=== PATIENT | female | born 1955 | race Caucasian/White ===

== ENCOUNTER → 2017-08-20 08:14 | Outpatient (CLI) | payer BC, SELFPAY ==
[2017-08-20 08:35] LABS: INR 1.65 (0.9-1.1); Prothrombin Time 17.9 seconds (9.4-11.8)
== END ==
PROVIDERS: PCP Family Medicine; Visit Provider Family Medicine
DX: Z79.01 Long term (current) use of anticoagulants (principal); Z51.81 Encounter for therapeutic drug level monitoring
CPT/HCPCS: 36415; 85610

== ENCOUNTER → 2017-09-18 08:28 | Outpatient (CLI) | payer BC, SELFPAY ==
[2017-09-18 08:47] LABS: INR 2.26 (0.9-1.1); Prothrombin Time 24.6 seconds (9.4-11.8)
== END ==
PROVIDERS: PCP Family Medicine; Visit Provider Family Medicine
DX: Z79.01 Long term (current) use of anticoagulants (principal); Z51.81 Encounter for therapeutic drug level monitoring
CPT/HCPCS: 36415; 85610

== ENCOUNTER → 2017-10-30 08:19 | Outpatient (CLI) | payer BC, SELFPAY ==
[2017-10-30 08:40] LABS: INR 2.52 (0.9-1.1); Prothrombin Time 27.5 seconds (9.4-11.8)
== END ==
PROVIDERS: Visit Provider Family Medicine
DX: Z79.01 Long term (current) use of anticoagulants (principal); Z51.81 Encounter for therapeutic drug level monitoring
CPT/HCPCS: 36415; 85610

== ENCOUNTER → 2018-01-08 07:40 | Outpatient (CLI) | payer BC, SELFPAY ==
[2018-01-08 08:13] LABS: Basophils # 0.1 K/mm3 (0-0.2); Basophils % 0.9 % (0.1-2.0); Eosinophils # 0.3 K/mm3 (0.0-0.4); Eosinophils % 3.6 % (0.1-12.0); Hematocrit 45.2 % (37.0-47.0); Hemoglobin 14.2 g/dL (12.2-16.2); Lymphocytes # 1.4 K/mm3 (0.7-4.5); Lymphocytes % 19.8 K/mm3 (10-50); Mean Corpuscular HGB Conc 31.4 g/dL (31.8-35.4); Mean Corpuscular Hemoglobin 30.6 pg (27.0-31.2); Mean Corpuscular Volume 97.7 fl (81-99); Mean Platelet Volume 7.9 fl (7.4-10.4); Monocytes # 0.4 K/mm3 (0.1-1.0); Monocytes % 5.7 % (1.7-9.3); Neutrophils # 4.8 K/mm3 (1.8-7.8); Neutrophils % 69.9 % (37.0-80.0); Platelet Count 203 K/mm3 (142-424); Red Blood Count 4.63 M/mm3 (4.20-5.40); Red Cell Distribution Width 13.1 % (11.5-17.5); White Blood Count 6.9 K/mm3 (4.8-10.8)
[2018-01-08 08:21] LABS: INR 2.45 (0.9-1.1); Prothrombin Time 26.7 seconds (9.4-11.8)
[2018-01-08 08:49] LABS: Alanine Aminotransferase 60 U/L (12-78); Albumin Level 3.8 gm/dL (3.4-5.0); Albumin/Globulin Ratio 1.3 (1.1-1.8); Alkaline Phosphatase 112 U/L (46-116); Anion Gap 11.5 mEq/L (5-15); Aspartate Amino Transferase 35 U/L (15-37); Bilirubin,Total 0.8 mg/dL (0.2-1.0); Blood Urea Nitrogen 13 mg/dL (7-18); Calcium 9.3 mg/dL (8.5-10.1); Carbon Dioxide 30 mmol/L (21.0-32.0); Chloride 105 mmol/L (98-107); Chol/HDL Ratio 2.4 (1-3.5); Cholesterol 158 mg/dL (140-200); Creatinine,Serum 0.82 mg/dL (0.55-1.02); Estimated Glomerular Filt Rate 70 ml/min (>60); GFR (African American) 85 ML/MIN (>60); Glucose 91 mg/dL (74-106); HDL Cholesterol 66 mg/dL (29-89); LDL Cholesterol 80 mg/dL (0-130); Potassium 4.5 mmoL/L (3.5-5.1); Sodium 142 mmol/L (136-145); Thyroid Stimulating Hormone 4.02 uIU/ml (0.358-3.740); Total Protein,Serum 6.8 gm/dL (6.4-8.2); Triglycerides 58 mg/dL (30-200); VLDL Cholesterol 12 mg/dL (0-40)
== END ==
PROVIDERS: Family Medicine; Visit Provider Physician Assistant Medical
DX: Z79.01 Long term (current) use of anticoagulants (principal); Z51.81 Encounter for therapeutic drug level monitoring; I48.2 Chronic atrial fibrillation
CPT/HCPCS: 36415; 80053; 80061; 84436; 84443; 85025; 85610

== ENCOUNTER → 2018-02-18 08:25 | Outpatient (CLI) | payer BC, SELFPAY ==
[2018-02-18 08:44] LABS: INR 2.54 (0.9-1.1); Prothrombin Time 25.5 seconds (9.4-11.8)
== END ==
PROVIDERS: Visit Provider Family Medicine
DX: Z79.01 Long term (current) use of anticoagulants (principal); Z51.81 Encounter for therapeutic drug level monitoring; I48.2 Chronic atrial fibrillation
CPT/HCPCS: 36415; 85610

== ENCOUNTER → 2018-02-23 13:35 | Outpatient (POV) | payer BC, SELFPAY | PROVIDERS: Family Provider Family Medicine; PCP Family Medicine | DX: Z00.00 Encounter for general adult medical examination without abnormal findings (principal) ==

== ENCOUNTER → 2018-03-23 07:00 | Outpatient (CLI) | payer BC, SELFPAY ==
[2018-03-23 07:19] LABS: INR 2.88 (0.9-1.1); Prothrombin Time 28.8 seconds (9.4-11.8)
[2018-03-23 07:44] LABS: T4 (Thyroxine) 10.5 ug/dl (4.7-13.3); Thyroid Stimulating Hormone 3.66 uIU/ml (0.358-3.740)
== END ==
PROVIDERS: Visit Provider Family Medicine
DX: Z79.01 Long term (current) use of anticoagulants (principal); Z51.81 Encounter for therapeutic drug level monitoring; I48.2 Chronic atrial fibrillation; E03.9 Hypothyroidism, unspecified
CPT/HCPCS: 36415; 84436; 84443; 85610

== ENCOUNTER → 2018-05-17 07:49 | Outpatient (CLI) | payer BC, SELFPAY ==
[2018-05-17 08:12] LABS: INR 2.23 (0.9-1.1); Prothrombin Time 22.4 seconds (9.4-11.8)
== END ==
PROVIDERS: PCP Family Medicine; Visit Provider Family Medicine
DX: Z51.81 Encounter for therapeutic drug level monitoring (principal); Z79.01 Long term (current) use of anticoagulants
CPT/HCPCS: 36415; 85610

== ENCOUNTER → 2018-06-29 08:03 | Outpatient (CLI) | payer BC, SELFPAY ==
[2018-06-29 08:29] LABS: INR 1.87 (0.9-1.1); Prothrombin Time 18.9 seconds (9.4-11.8)
== END ==
PROVIDERS: Visit Provider Family Medicine
DX: Z51.81 Encounter for therapeutic drug level monitoring (principal); Z79.01 Long term (current) use of anticoagulants; I48.2 Chronic atrial fibrillation
CPT/HCPCS: 36415; 85610

== ENCOUNTER → 2018-08-10 08:22 | Outpatient (CLI) | payer BC, SELFPAY ==
[2018-08-10 08:42] LABS: Prothrombin Time 18.2 seconds (9.4-11.8)
== END ==
PROVIDERS: Visit Provider Family Medicine
DX: Z51.81 Encounter for therapeutic drug level monitoring (principal); Z79.01 Long term (current) use of anticoagulants; I48.2 Chronic atrial fibrillation
CPT/HCPCS: 36415; 85610

== ENCOUNTER → 2018-09-17 08:33 | Outpatient (CLI) | payer BC, SELFPAY ==
[2018-09-17 09:07] LABS: INR 1.77 (0.9-1.1); Prothrombin Time 17.9 seconds (9.4-11.8)
== END ==
PROVIDERS: Visit Provider Family Medicine
DX: Z51.81 Encounter for therapeutic drug level monitoring (principal); Z79.01 Long term (current) use of anticoagulants; I48.2 Chronic atrial fibrillation
CPT/HCPCS: 36415; 85610

== ENCOUNTER → 2018-10-27 07:04 | Outpatient (CLI) | payer BC, SELFPAY ==
[2018-10-27 07:23] LABS: INR 2.13 (0.9-1.1); Prothrombin Time 21.5 seconds (9.4-11.8)
== END ==
PROVIDERS: Visit Provider Family Medicine
DX: Z51.81 Encounter for therapeutic drug level monitoring (principal); Z79.01 Long term (current) use of anticoagulants; I48.2 Chronic atrial fibrillation
CPT/HCPCS: 36415; 85610

== ENCOUNTER → 2018-12-10 08:01 | Outpatient (CLI) | payer BC, SELFPAY ==
[2018-12-10 08:23] LABS: INR 1.86 (0.9-1.1); Prothrombin Time 18.8 seconds (9.4-11.8)
== END ==
PROVIDERS: Visit Provider Family Medicine
DX: Z51.81 Encounter for therapeutic drug level monitoring (principal); Z79.01 Long term (current) use of anticoagulants; I48.2 Chronic atrial fibrillation
CPT/HCPCS: 36415; 85610

== ENCOUNTER → 2019-01-26 07:19 | Outpatient (CLI) | payer BC, SELFPAY ==
[2019-01-26 09:35] LABS: Alanine Aminotransferase 48 U/L (12-78); Albumin Level 3.6 gm/dL (3.4-5.0); Albumin/Globulin Ratio 1.3 (1.1-1.8); Alkaline Phosphatase 87 U/L (46-116); Anion Gap 13.4 mEq/L (5-15); Aspartate Amino Transferase 30 U/L (15-37); Bilirubin,Total 0.6 mg/dL (0.2-1.0); Blood Urea Nitrogen 20 mg/dL (7-18); Calcium 8.5 mg/dL (8.5-10.1); Carbon Dioxide 29 mmol/L (21.0-32.0); Chloride 104 mmol/L (98-107); Chol/HDL Ratio 2.7 (1-3.5); Cholesterol 150 mg/dL (140-200); Creatinine,Serum 0.81 mg/dL (0.55-1.02); Estimated Glomerular Filt Rate 71 ml/min (>60); GFR (African American) 86 ML/MIN (>60); Globulin 2.8 gm/dl (1.3-3.2); Glucose 99 mg/dL (74-106); HDL Cholesterol 55 mg/dL (29-89); LDL Cholesterol 81 mg/dL (0-130); Potassium 4.4 mmoL/L (3.5-5.1); Sodium 142 mmol/L (136-145); T4 (Thyroxine) 8.1 ug/dl (4.7-13.3); Thyroid Stimulating Hormone 6.56 uIU/ml (0.358-3.740); Total Protein,Serum 6.4 gm/dL (6.4-8.2); Triglycerides 69 mg/dL (30-200); VLDL Cholesterol 14 mg/dL (0-40)
== END ==
PROVIDERS: Visit Provider Family Medicine
DX: E78.5 Hyperlipidemia, unspecified (principal); E03.9 Hypothyroidism, unspecified; Z51.81 Encounter for therapeutic drug level monitoring; Z79.01 Long term (current) use of anticoagulants
CPT/HCPCS: 36415; 80053; 80061; 84436; 84443

== ENCOUNTER → 2019-02-15 13:42 | Outpatient (POV) | payer BC, SELFPAY | DX: Z00.00 Encounter for general adult medical examination without abnormal findings (principal) ==

== ENCOUNTER → 2020-01-31 07:38 | Outpatient (CLI) | payer BC, SELFPAY ==
[2020-01-31 07:51] LABS: Basophils # 0.1 K/mm3 (0-0.2); Basophils % 0.7 % (0.1-2.0); Eosinophils # 0.3 K/mm3 (0.0-0.4); Eosinophils % 3.6 % (0.1-12.0); Hematocrit 42.9 % (37.0-47.0); Hemoglobin 14.6 g/dL (12.2-16.2); Lymphocytes # 1.6 K/mm3 (0.7-4.5); Lymphocytes % 21.5 % (10-50); Mean Corpuscular Hemoglobin 33.5 pg (27.0-31.2); Mean Corpuscular Volume 98.6 fl (81-99); Mean Platelet Volume 8.1 fl (7.4-10.4); Monocytes # 0.5 K/mm3 (0.1-1.0); Monocytes % 6.7 % (1.7-9.3); Neutrophils # 5.1 K/mm3 (1.8-7.8); Neutrophils % 67.5 % (37.0-80.0); Platelet Count 199 K/mm3 (142-424); Red Blood Count 4.35 M/mm3 (4.20-5.40); Red Cell Distribution Width 13.4 % (11.5-17.5); White Blood Count 7.6 K/mm3 (4.8-10.8)
[2020-01-31 09:13] LABS: Chloride 102 mmol/L (98-107); Potassium 4.5 mmoL/L (3.5-5.1); Sodium 137 mmol/L (136-145)
[2020-01-31 09:15] LABS: Blood Urea Nitrogen 20 mg/dl (7-17); Estimated Glomerular Filt Rate 63 ml/min (>60); GFR (African American) 76 ML/MIN (>60)
[2020-01-31 09:16] LABS: Alanine Aminotransferase 37 U/L (12-78); Albumin Level 4.1 g/dl (3.5-5.0); Albumin/Globulin Ratio 1.6 (1.1-1.8); Alkaline Phosphatase 88 U/L (38-126); Anion Gap 7.5 mEq/L (5-15); Aspartate Amino Transferase 37 U/L (14-36); Bilirubin,Total 0.8 mg/dl (0.2-1.3); Carbon Dioxide 32 mmol/L (22.0-30.0); Globulin 2.6 g/dL (1.3-3.2); Total Protein,Serum 6.7 g/dl (6.3-8.2)
[2020-01-31 09:17] LABS: Calcium 9.1 mg/dl (8.4-10.2); Glucose 89 mg/dl (74-100)
[2020-01-31 09:33] LABS: T4 (Thyroxine) 9.8 ug/dl (5.53-11.0)
[2020-01-31 09:47] LABS: Thyroid Stimulating Hormone 5.86 uIU/mL (0.465-4.68)
[2020-01-31 10:03] LABS: Chol/HDL Ratio 2.8 (1-3.5); Cholesterol 155 mg/dl (140-200); Direct LDL Cholesterol 82.03 mg/dL (100-129); HDL Cholesterol 55 mg/dl (40-60); Triglycerides 97 mg/dl (30-150); VLDL Cholesterol 19 mg/dL (0-40)
== END ==
PROVIDERS: Visit Provider Family Medicine
DX: E78.5 Hyperlipidemia, unspecified (principal); E03.9 Hypothyroidism, unspecified; I48.0 Paroxysmal atrial fibrillation
CPT/HCPCS: 36415; 80053; 80061; 84436; 84443; 85025

== ENCOUNTER → 2020-03-14 12:15 | Outpatient (CLI) | payer BC, SELFPAY ==
--- NOTE | 2020-03-14 12:18 | CA_ITS ---
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 The left carotid arterial system appeared to be normal without stenosis of the bulb or internal carotid artery. Antegrade flow seen bilateral vertebral arteries. Conclusion The right carotid arterial system appeared to be normal without stenosis of the bulb or internal carotid artery. The left carotid arterial system appeared to be normal without stenosis of the bulb or internal carotid artery. Antegrade flow seen bilateral vertebral arteries. Electronically signed by : Pritesh Ayala MD 03/14/2020 17:14:50
--- NOTE | 2020-03-14 12:18 | CA_ITS ---
APPROVED REPORT EXAM: Comprehensive 2D, Doppler, and color-flow Echocardiogram Residential Specialist: Dara Tate RDCS Ht: 5 ft 8 in Wt: 150lbs BSA: 1.81 BP: 112/72 mmHg Indications: TIA, PP,H/O AF 2D Dimensions LVOT 2.20 cm (M/F) 1.5-2.5 M-Mode Dimensions RVDd 2.98 cm (0.9-2.6) LVDd 4.75 cm (3.5-5.7) LVDs 3.28 cm (3.5-5.7) IVSd 0.77 cm (0.6-1.1) PWd 0.60 cm (0.6-1.1) EF (Teich) 58.50% FS 30.90% EDV (Teich) 104.90 mL ESV (Teich) 43.50 mL Mitral Valve MV PHT 117.00 ms Left Ventricle Left atrium is moderately enlarged, left ventricle is normal size, there is no concentric left ventricular hypertrophy, visually estimated ejection fraction 55% with no regional wall motion abnormality, diastolic parameters are inconclusive. Right Ventricle Right atrium and right ventricle mildly enlarged with normal contractility. A pacemaker lead seen right atrium and right ventricle. Aortic Valve Aortic valve is grossly normal, there is no aortic stenosis or aortic insufficiency. 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 Tricuspid Valve Tricuspid valve is grossly normal, there is mild tricuspid regurgitation. Calculated right ventricular systolic pressure is 44 mmHg. Pulmonic Valve Pulmonic valve is poorly visualized. Great Vessels Aortic root is normal size. Pericardium No significant pericardial effusion noted. Conclusion 1. Moderately enlarged left atrium, normal left ventricular size, visually estimated ejection fraction 55% with no regional wall motion abnormality. Diastolic parameters are inconclusive. 2. Rheumatic mitral valve disease, there is likely severe mitral stenosis and mild mitral regurgitation, a transesophageal echocardiogram is recommended. 3. Mild tricuspid regurgitation, calculated right ventricular systolic pressure is 44 mmHg. 4. No significant pericardial effusion noted. Electronically signed by : Luis Carlos Amaral, 03/14/2020 16:37:03
== END ==
PROVIDERS: PCP Physician Assistant; Visit Provider Physician Assistant
DX: I48.0 Paroxysmal atrial fibrillation (principal); R20.2 Paresthesia of skin
CPT/HCPCS: 93306; 93880

== ENCOUNTER → 2020-09-13 08:08 | Outpatient (CLI) | payer BC, SELFPAY | PROVIDERS: PCP Physician Assistant; Visit Provider Physician Assistant | DX: Z20.822 Contact with and (suspected) exposure to COVID-19 (principal) | CPT/HCPCS: U0003 ==

== ENCOUNTER → 2021-01-22 13:04 | Outpatient (POV) | payer BC, SELFPAY | DX: Z00.00 Encounter for general adult medical examination without abnormal findings (principal) ==

== ENCOUNTER → 2022-02-16 07:52 | Outpatient (CLI) | payer BC, SELFPAY ==
[2022-02-16 08:53] LABS: Alanine Aminotransferase 37 U/L (12-78); Albumin Level 3.8 g/dl (3.5-5.0); Albumin/Globulin Ratio 1.5 (1.1-1.8); Alkaline Phosphatase 86 U/L (38-126); Anion Gap 10.1 mEq/L (5-15); Aspartate Amino Transferase 37 U/L (14-36); Bilirubin,Total 0.4 mg/dl (0.2-1.3); Blood Urea Nitrogen 15 mg/dl (7-17); Carbon Dioxide 29 mmol/L (22.0-30.0); Chloride 102 mmol/L (98-107); Chol/HDL Ratio 2.7 (1-3.5); Cholesterol 155 mg/dl (140-200); Estimated Glomerular Filt Rate 72 ml/min (>60); GFR (African American) 87 ML/MIN (>60); Globulin 2.5 g/dL (1.3-3.2); Glucose 94 mg/dl (74-100); HDL Cholesterol 57 mg/dl (40-60); Potassium 4.1 mmoL/L (3.5-5.1); Sodium 137 mmol/L (136-145); Total Protein,Serum 6.3 g/dl (6.3-8.2); Triglycerides 99 mg/dl (30-150); VLDL Cholesterol 20 mg/dL (0-40)
[2022-02-16 09:04] LABS: Direct LDL Cholesterol 71.65 mg/dL (100-129)
[2022-02-16 09:23] LABS: Thyroid Stimulating Hormone 3.12 uIU/mL (0.465-4.68)
== END ==
PROVIDERS: PCP Family Medicine; Visit Provider Family Medicine
DX: E03.9 Hypothyroidism, unspecified (principal); E78.5 Hyperlipidemia, unspecified
CPT/HCPCS: 36415; 80053; 80061; 84443

== ENCOUNTER → 2022-07-20 15:41 | Outpatient (CLI) | payer BC, SELFPAY ==
[2022-07-20 16:47] LABS: INR 3.35 (0.9-1.1); Prothrombin Time 33.8 seconds (10.1-12.5)
== END ==
PROVIDERS: PCP Family Medicine; Visit Provider Family Medicine
DX: Z51.81 Encounter for therapeutic drug level monitoring (principal); I48.20 Chronic atrial fibrillation, unspecified; Z79.01 Long term (current) use of anticoagulants
CPT/HCPCS: 36415; 85610

== ENCOUNTER 2022-07-27 07:51 | Outpatient (CLI) | payer BC, SELFPAY | END 2022-07-27 16:10 | LOC: ACC 07:51 | PROVIDERS: PCP Family Medicine; Visit Provider Family Medicine | DX: Z51.81 Encounter for therapeutic drug level monitoring (principal); Z79.01 Long term (current) use of anticoagulants; I48.91 Unspecified atrial fibrillation | CPT/HCPCS: 85610; 99211; G0463 ==

== ENCOUNTER 2022-08-05 10:24 | Outpatient (CLI) | payer BC, SELFPAY | END 2022-08-05 11:01 | PROVIDERS: PCP Family Medicine; Visit Provider Family Medicine | DX: Z51.81 Encounter for therapeutic drug level monitoring (principal); Z79.01 Long term (current) use of anticoagulants; I48.91 Unspecified atrial fibrillation | CPT/HCPCS: 85610 ==

== ENCOUNTER 2022-08-14 09:56 | Outpatient (CLI) | payer BC, SELFPAY | END 2022-08-14 10:13 | LOC: ACC 09:56 | PROVIDERS: PCP Family Medicine; Visit Provider Family Medicine | DX: Z51.81 Encounter for therapeutic drug level monitoring (principal); Z79.01 Long term (current) use of anticoagulants | CPT/HCPCS: 85610; 99211; G0463 ==

== ENCOUNTER 2022-08-26 15:46 | Outpatient (CLI) | payer BC, SELFPAY ==
[2022-08-26 16:23] LABS: PHA INR Fingerstick 2.7 (0.9-1.1)
--- NOTE | 2022-09-22 14:55 | HMH.PHAINT1 ---
Pharmacy Intervention Comments: CALL FROM DR. DE JESUS'S OFFICE IN [place]. WANTS INR GOAL TO INCREASE FROM 2.0-3.0 TO 2.5-3.5. NOTIFIED DR. WASHINGTON'S OFFICE.
== END 2022-08-26 16:25 ==
LOC: ACC 15:46
PROVIDERS: PCP Family Medicine; Visit Provider Family Medicine
DX: Z51.81 Encounter for therapeutic drug level monitoring (principal); Z79.01 Long term (current) use of anticoagulants; I48.91 Unspecified atrial fibrillation
CPT/HCPCS: 85610; 99211; G0463

== ENCOUNTER 2022-09-28 08:52 | Outpatient (CLI) | payer BC, SELFPAY ==
[2022-09-28 09:31] LABS: PHA INR Fingerstick 3.1 (0.9-1.1)
== END 2022-09-28 09:34 ==
LOC: ACC 08:52
PROVIDERS: PCP Family Medicine; Visit Provider Family Medicine
DX: Z51.81 Encounter for therapeutic drug level monitoring (principal); Z79.01 Long term (current) use of anticoagulants
CPT/HCPCS: 85610; 99211; G0463

== ENCOUNTER 2022-11-04 15:38 | Outpatient (CLI) | payer BC, SELFPAY ==
[2022-11-04 15:55] LABS: PHA INR Fingerstick 2.6 (0.9-1.1)
== END 2022-11-04 15:57 ==
LOC: ACC 15:38
PROVIDERS: PCP Family Medicine; Visit Provider Family Medicine
DX: Z51.81 Encounter for therapeutic drug level monitoring (principal); Z79.01 Long term (current) use of anticoagulants; I48.91 Unspecified atrial fibrillation
CPT/HCPCS: 85610; 99211; G0463

== ENCOUNTER 2022-11-12 08:29 | Outpatient (CLI) | payer BC, SELFPAY ==
[2022-11-12 09:07] LABS: PHA INR Fingerstick 2.8 (0.9-1.1)
== END 2022-11-12 09:10 ==
LOC: ACC 08:29
PROVIDERS: PCP Family Medicine; Visit Provider Family Medicine
DX: Z51.81 Encounter for therapeutic drug level monitoring (principal); Z79.01 Long term (current) use of anticoagulants; I48.91 Unspecified atrial fibrillation
CPT/HCPCS: 85610; 99211; G0463

== ENCOUNTER 2022-11-25 15:40 | Outpatient (CLI) | payer BC, SELFPAY ==
[2022-11-25 16:22] LABS: PHA INR Fingerstick 3.1 (0.9-1.1)
== END 2022-11-25 16:30 ==
LOC: ACC 15:41
PROVIDERS: PCP Family Medicine; Visit Provider Family Medicine
DX: Z51.81 Encounter for therapeutic drug level monitoring (principal); Z79.01 Long term (current) use of anticoagulants; I48.91 Unspecified atrial fibrillation
CPT/HCPCS: 85610; 99211; G0463

== ENCOUNTER 2022-12-16 15:40 | Outpatient (CLI) | payer BC, SELFPAY ==
[2022-12-16 15:59] LABS: PHA INR Fingerstick 3.5 (0.9-1.1)
== END 2022-12-16 16:00 ==
LOC: ACC 15:40
PROVIDERS: PCP Family Medicine; Visit Provider Family Medicine
DX: Z51.81 Encounter for therapeutic drug level monitoring (principal); Z79.01 Long term (current) use of anticoagulants; I48.91 Unspecified atrial fibrillation
CPT/HCPCS: 85610; 99211; G0463

== ENCOUNTER 2023-01-05 08:05 | Emergency (ER) | payer BC, SELFPAY ==
[2023-01-05 08:06] VITALS: BP 123/80; PULSE 70; RESP 18; TEMP 36.7; O2SAT 100; BMI 23.6
--- NOTE | 2023-01-05 08:15 | PC.NURSE ---
TDAP given right deltoid. L [id number]; E 10/10/24 TDAP information sheet given
--- NOTE | 2023-01-05 08:36 | EXP.UTC ---
Discharge Plan Disposition Patient Disposition: Home, Self-Care Condition: Good Prescriptions Prescriptions: New cephalexin 500 mg capsule 500 mg PO QID Qty: 40 0RF mupirocin 2 % ointment 1 applic topical TID 7 Days Qty: 15 0RF No Action dofetilide 250 mcg capsule 250 mcg PO BID dofetilide 125 mcg capsule 125 mcg PO BID atorvastatin 40 mg tablet 40 mg PO DAILY metoprolol succinate 25 mg capsule,sprinkle,ER 24hr 25 mg PO DAILY warfarin 7.5 mg tablet 7.5 mg PO levothyroxine [Euthyrox] 75 mcg tablet 75 mcg PO Label Comments: TAKE 1 TABLET BY MOUTH ONCE DAILY Climara Pro 0.045-0.015 mg/24 hr patch weekly See Rx Instructions .ROUTE .COMPLEX Qty: 12 3RF Dose Instruction: APPLY 1 PATCH TO THE SKIN WEEKLY Rx Instructions: APPLY 1 PATCH TO THE SKIN WEEKLY Referrals Follow up/Referrals: Andreas Bradshaw MD [Primary Care Provider] - See instructions Activity Restrictions/Add. Instructions Additional Instructions/Restrictions: Keep the wound clean and dry. Keep a dressing on it if you are going to be getting it dirty. Watch the wound for signs of infection, such as redness, swelling, drainage, fever. etc. Take tylenol or ibuprofen for pain. Follow up with your regular doctor. GO TO THE ER FOR ANY WORSENING SYMPTOMS OR CONCERNS. Clinical Impressions Clinical Impression: Laceration of foot, left, Need for Tdap vaccination Instructions Patient Instructions: DI for Avulsion Laceration (Not Requiring Sutures) Discharge ED Provider: Sergey Crespo [facility] General Stated complaint: AO@home 01/04 RT foot lac Mode of Arrival: Ambulatory Source of Information: Patient Limitations: No Limitations Time Seen by Provider: 01/05/23 08:36 Description of Symptoms (Recalled from Triage Doc. by RN): pt states she cut her right foot in 2 places on a metal door yesterday. pt uncertain of last tdap. HEENT Symptoms (Recalled from RN notes): No Resp Symptoms (Recalled from RN notes): No Skin Symptoms (Recalled from RN notes): Yes (right foot laceration) MS Symptoms (Recalled from RN notes): No Functional Status (Recalled from RN notes): na History of Present Illness Provider Complaint: She states that she scraped her left foot on the bottom of a metal screen door. 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 Her tetanus immunization is not up to date. Related Data Home Medications Medication Instructions Recorded Confirmed atorvastatin 40 mg tablet 40 mg PO DAILY 04/14/18 dofetilide 125 mcg capsule 125 mcg PO BID 04/14/18 dofetilide 250 mcg capsule 250 mcg PO BID 04/14/18 metoprolol succinate 25 mg capsule 25 mg PO DAILY 04/14/18 sprinkle, ext. release 24 hr levothyroxine 75 mcg tablet 75 mcg PO 02/26/22 02/26/22 (Euthyrox) warfarin 7.5 mg tablet 7.5 mg PO 02/26/22 02/26/22 Previous Rx's Medication Instructions Recorded estradiol 0.045 mg-levonorgestrel See Rx Instructions .Route 02/26/22 0.015 mg/24hr weekly transderm .COMPLEX #12 patches patch (Climara Pro) cephalexin 500 mg capsule 500 mg PO QID #40 caps 01/05/23 mupirocin 2 % topical ointment 1 applic topical TID 7 days #15 01/05/23 grams Allergies Allergy/AdvReac Type Severity Reaction Status Date / Time No Known Allergies Allergy Verified 02/26/22 13:48 Worker's Comp Is this a Worker's Comp case?: No Is this an [facility] Worker's Comp?: No [facility] Disclaimer: The information contained in this section may have been updated after the patient was seen, as this information can be updated by other users. Social History Smoking Status: Never smoker alcohol intake: never substance use type: denies use current occupational status: employed Travel in the last 8 weeks: None ROS Obtained: Yes All systems reviewed & no additional complaints except as documented Constitutional Constitutional: De
[2023-01-05 09:00] VITALS: BP 123/80; PULSE 70; RESP 18; TEMP 36.7; O2SAT 100
== END 2023-01-05 09:03 | disposition home or self-care (01) ==
PROVIDERS: Emergency Provider Nurse Practitioner Family; PCP Family Medicine
DX: S91.312A Laceration without foreign body, left foot, initial encounter (principal); W26.8XXA Contact with other sharp object(s), not elsewhere classified, initial encounter
CPT/HCPCS: 99204; 99212; G0463

== ENCOUNTER 2023-02-05 09:21 | Outpatient (CLI) | payer BC, SELFPAY ==
[2023-02-05 12:31] LABS: PHA INR Fingerstick 2.7 (0.9-1.1)
== END 2023-02-05 13:25 ==
LOC: ACC 09:21
PROVIDERS: PCP Family Medicine; Visit Provider Family Medicine
DX: Z51.81 Encounter for therapeutic drug level monitoring (principal); Z79.01 Long term (current) use of anticoagulants; I48.91 Unspecified atrial fibrillation
CPT/HCPCS: 85610; 99211; G0463

== ENCOUNTER 2023-02-11 08:23 | Outpatient (CLI) | payer MEDICARE, SELFPAY ==
[2023-02-11 11:39] LABS: PHA INR Fingerstick 2.2 (0.9-1.1)
== END 2023-02-11 11:53 ==
LOC: ACC 08:25
PROVIDERS: PCP Family Medicine; Visit Provider Family Medicine
DX: Z79.01 Long term (current) use of anticoagulants (principal); Z51.81 Encounter for therapeutic drug level monitoring
CPT/HCPCS: 85610; 99211; G0463

== ENCOUNTER 2023-02-19 09:59 | Outpatient (RCR) | payer MEDICARE, SELFPAY | END 2023-04-01 10:50 | disposition home or self-care (01) | LOC: PT 09:59 | PROVIDERS: Visit Provider Surgery | DX: I25.10 Atherosclerotic heart disease of native coronary artery without angina pectoris (principal); Z95.5 Presence of coronary angioplasty implant and graft | CPT/HCPCS: 93798 ==

== ENCOUNTER 2023-02-22 08:26 | Outpatient (CLI) | payer MEDICARE, SELFPAY ==
[2023-02-22 09:04] LABS: PHA INR Fingerstick 1.9 (0.9-1.1)
== END 2023-02-22 09:13 ==
LOC: LAB 08:28 → ACC 08:31
PROVIDERS: PCP Family Medicine; Visit Provider Family Medicine
DX: Z79.01 Long term (current) use of anticoagulants (principal); Z51.81 Encounter for therapeutic drug level monitoring
CPT/HCPCS: 85610; 99211; G0463

== ENCOUNTER 2023-03-04 08:27 | Outpatient (CLI) | payer MEDICARE, SELFPAY ==
[2023-03-04 10:13] LABS: PHA INR Fingerstick 2.6 (0.9-1.1)
== END 2023-03-04 10:15 ==
PROVIDERS: PCP Family Medicine; Visit Provider Family Medicine
DX: Z51.81 Encounter for therapeutic drug level monitoring; Z79.01 Long term (current) use of anticoagulants; I48.91 Unspecified atrial fibrillation
CPT/HCPCS: 85610; 99211; G0463

== ENCOUNTER → 2023-03-05 13:49 | Outpatient (CLI) | payer MEDICARE, SELFPAY ==
--- NOTE | 2023-03-05 13:49 | US_ITS ---
PROCEDURE: US TRANSVAGINAL CLINICAL INDICATION: post menopausal bleeding COMPARISON: No exams were available for comparison FINDINGS: Transvaginal and transabdominal sonographic images of the pelvis were obtained. UTERUS: 6.9 cm x 5.2 cmx 4.1 cm with a combined endometrial thickness of 9.2mm. The uterus is retroverted. Several small nabothian cysts. LEFT OVARY: Not visualized. Transabdominal ultrasound was attempted but the left ovary could not be visualized with either approach. RIGHT OVARY: 2.5 cmx 2.9 cmx1.1 cm with a volume of 4.2ml. IMPRESSION: 1. Retroverted uterus normal in shape and size. 2. The endometrium is 9.2 mm which is thickened for a postmenopausal woman. 3. No fluid in the cul-de-sac. 4. Suggest endometrial sampling. Dictated by: Quentin Miller MD 03/06/2023 14:38 Quentin Miller MD in [place] 03/06/2023 14:38
== END ==
PROVIDERS: PCP Family Medicine; Visit Provider Obstetrics & Gynecology
DX: N95.0 Postmenopausal bleeding (principal)
CPT/HCPCS: 76830

== ENCOUNTER 2023-03-25 08:33 | Outpatient (CLI) | payer MEDICARE, SELFPAY ==
[2023-03-25 11:05] LABS: PHA INR Fingerstick 1.3 (0.9-1.1)
== END 2023-03-25 11:12 ==
LOC: ACC 08:33
PROVIDERS: PCP Family Medicine; Visit Provider Family Medicine
DX: Z79.01 Long term (current) use of anticoagulants (principal); Z51.81 Encounter for therapeutic drug level monitoring; I48.91 Unspecified atrial fibrillation
CPT/HCPCS: 85610; 99211; G0463

== ENCOUNTER 2023-04-01 08:21 | Outpatient (CLI) | payer MEDICARE, SELFPAY ==
[2023-04-01 13:51] LABS: PHA INR Fingerstick 2.5 (0.9-1.1)
== END 2023-04-01 14:01 ==
LOC: ACC 08:22
PROVIDERS: PCP Family Medicine; Visit Provider Family Medicine
DX: Z79.01 Long term (current) use of anticoagulants (principal); Z51.81 Encounter for therapeutic drug level monitoring; I48.91 Unspecified atrial fibrillation
CPT/HCPCS: 85610; 99211; G0463

== ENCOUNTER → 2023-04-23 08:01 | Outpatient (CLI) | payer MEDICARE, SELFPAY ==
[2023-04-23 08:15] LABS: Basophils # 0.1 K/mm3 (0-0.2); Basophils % 0.9 % (0.1-2.0); Eosinophils # 0.4 K/mm3 (0.0-0.4); Eosinophils % 5.3 % (0.1-12.0); Hematocrit 45.2 % (37.0-47.0); Hemoglobin 14.1 g/dL (12.2-16.2); Lymphocytes # 1.1 K/mm3 (0.7-4.5); Lymphocytes % 16.2 % (10-50); Mean Corpuscular HGB Conc 31.2 g/dL (31.8-35.4); Mean Corpuscular Hemoglobin 31.1 pg (27.0-31.2); Mean Corpuscular Volume 99.8 fl (81-99); Mean Platelet Volume 8.2 fl (7.4-10.4); Monocytes # 0.4 K/mm3 (0.1-1.0); Monocytes % 6.3 % (1.7-9.3); Neutrophils # 4.9 K/mm3 (1.8-7.8); Neutrophils % 71.4 % (37.0-80.0); Platelet Count 241 K/mm3 (142-424); Red Blood Count 4.52 M/mm3 (4.20-5.40); Red Cell Distribution Width 14.2 % (11.5-17.5); White Blood Count 6.9 K/mm3 (4.8-10.8)
[2023-04-23 08:48] LABS: Alanine Aminotransferase 36 U/L (12-78); Albumin Level 4.1 g/dl (3.5-5.0); Albumin/Globulin Ratio 1.5 (1.1-1.8); Alkaline Phosphatase 130 U/L (38-126); Anion Gap 11.4 mEq/L (5-15); Aspartate Amino Transferase 38 U/L (14-36); Bilirubin,Total 0.8 mg/dl (0.2-1.3); Blood Urea Nitrogen 18 mg/dl (7-17); Carbon Dioxide 30 mmol/L (22.0-30.0); Chloride 103 mmol/L (98-107); Estimated Glomerular Filt Rate 49 ml/min (>60); GFR (African American) 60 ML/MIN (>60); Globulin 2.7 g/dL (1.3-3.2); Glucose 88 mg/dl (74-100); Potassium 4.4 mmoL/L (3.5-5.1); Sodium 140 mmol/L (136-145); Total Protein,Serum 6.8 g/dl (6.3-8.2)
== END ==
PROVIDERS: PCP Family Medicine; Visit Provider Obstetrics & Gynecology
DX: N95.0 Postmenopausal bleeding (principal)
CPT/HCPCS: 36415; 80053; 85025

== ENCOUNTER 2023-04-29 06:46 | Day surgery (SDC) | payer MEDICARE, SELFPAY ==
[2023-04-27 11:37] VITALS: BMI 22.8
[2023-04-29] VITALS (9 sets, daily range): BP systolic 121–142; BP diastolic 72–79; PULSE 60–81; RESP 18–22; TEMP 36.3–43; O2SAT 97–100
--- NOTE | 2023-04-29 07:29 | EXP.ANES.CKL ---
[facility] Disclaimer: The information contained in this section may have been updated after the patient was seen, as this information can be updated by other users. Medical History Allergies History of anemia History of COVID-19 History of pacemaker Hyperlipidemia Hypothyroid Macular degeneration of both eyes Postmenopausal bleeding Thickened endometrium Surgical History H/O mitral valve replacement History of open heart surgery History of tubal ligation Hx of cardiac cath Hx of tricuspid valve repair Family History Other Cancer Social History Smoking Status: Never smoker alcohol intake: never substance use type: denies use current occupational status: retired Travel in the last 8 weeks: None [facility] Anesthesia Checklist Patient Identification Patient Identification: Arm Band and Verbal (Name & ) Structural Data Admitted From: Home Planned Operative Procedure/s: Hyst/D & C/ Myosure Consent for Planned Operative Procedure(s) Verified: Yes NPO Status Verified Time NPO: 00:00 Chart Verification Results Verified: CBC and BMP Additional verifications Anesthesia Reactions: No Hx Blood Transfusions: No Blood Transfusion Reaction: No Airway Assessment Mallampati Score:: Class I C-Spine Mobility Assessed: Yes TMJ Mobility Assessed: Yes Dentition: Good Dentition Neurological Assessment Level of Consciousness: Awake Hx Seizures: No Numbness or tingling in extremities: No Anesthesia Plan Anesthesia Risk discussed: Yes Anesthesia Plan: Verified ASA Class: III Anesthesia Type: General
--- NOTE | 2023-04-29 09:23 | P.PNANES_ITS ---
[facility] Anesthesia Record Part I Anesthesia Record I Intake, IV Amount: 600 Hydration: Adequate Estimated blood loss (mL): 5 Urine output (mL): 0 Blood Products used (#): none Blood Pressure: 121/73 SaO2: 100 Pulse Rate: 60 Airway Patency: Patent Respiratory Rate: 22 Temperature: 97.3 F Patient is:: Drowsy and Stable Stable to PACU at:: 09:10
--- NOTE | 2023-04-29 09:49 | EXP.OP.NOTE ---
Date of procedure: 04/29/23 Pre-op Diagnosis:: 1. Postmenopausal bleeding 2. Thickened endometrium Post-op Diagnosis:: 1. Postmenopausal bleeding 2. 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 She reports postmenopausal bleeding that started 02/20/23. She went through menopause 15-20 years ago. She underwent open heart surgery 01/11/23. She is taking Aspirin 81 mg daily and Warfarin. She states bleeding was quite heavy the first few days and has now lightened up. She wears a panty liner and changes it a few times a day. She admits to chunky consistency. Last pap smear was 02/26/22 - negative. TSH 02/16/22 was 3.12. Pelvic ultrasound 03/05/23 demonstrated retroverted uterus normal in shape and size, endometrium is 9.2 mm which is thickened for a postmenopausal woman. She received cardiac clearance for surgery with instructions for when to stop and restart Warfarin and Aspirin. Operative findings:: 1. On bimanual exam, uterus norml size and shape, retroverted. No adnexal masses palpated 2. On hysteroscopic exam, bilateral tubal ostia easily visualized. Atrophic appearing endometrial tissue noted. No masses or polyps Operative note:: Risks, benefits and alternatives were discussed with the patient. Risks include but are not limited to bleeding, infection, uterine perforation and VTE. Patient voiced understanding and agreed to proceed. She was wheeled back to the operating room and placed under general anesthesia without difficulty. She was placed in dorsal lithotomy position and prepped and draped in the normal sterile fashion. Straight catheter was used to drain the bladder. A bimanual exam was performed. A weighted Auvard was placed in the vaginal vault. Single tooth tenaculum was placed on anterior lip of the cervix. Uterus sounded to 8. Sequential John dilators were used to dilate the cervical os. Hysteroscope was tested inserted through the cervix without difficulty. Endometrial cavity was evaluated. See findings above. Pictures were taken. Myosure was inserted through the Hysteroscope. Myosure curettage was performed under direct visualization per protocol. The endometrial cavity was curetted with a systematic [id number] movement of the curette so that all possible endometrium was sampled. Endometrial curettings will be sent to pathology for review.?In addition, a medium size sharp curette was inserted through the cervix into the uterine cavity and endometrium was curetted with a systematic back and forth movement in a 360 degree manner. All endometrial curettings will be sent to pathology for review. Instruments were removed from the vagina. Tenaculum site was noted to oozing. Silver nitrate stick x 2 applied. Hemostasis was noted. Patient was awaken from anesthesia without difficulty. She was transported to recovery room in stable condition. Patient will be discharged home when awake and ambulating. She was given postop instructions as well as instructions to follow-up in the office in 2 weeks. Condition: stable Disposition: same day Specimens:: 1. Endometrial curettings Complications:: None
--- NOTE | 2023-04-30 11:36 | EXP.ANES.II ---
[facility] Anesthesia Record Part II Anesthesia Record Part II Discharge Time: 09:40 Destination: Surgical Day Care (OP Surgery) PACU nurse assessment reviewed?: Yes Patient Condition:: Good Anesthesia Complications:: None Swallowing reflex intact?: Yes Airway Patency: Patent Cyanosis?: No Blood Pressure: 142/75 SaO2: 99 Respiratory Rate: 22 Pulse Rate: 64 Temperature: 97.5 F Mental Status: Alert & Oriented Pain level:: 0 Nausea and/or vomitting:: None Intake, IV Amount: 0 Hydration: Adequate
[2023-04-30 11:37] VITALS: BP 142/75; PULSE 64; RESP 22; TEMP 36.4; O2SAT 99
== END 2023-04-29 10:11 | disposition home or self-care (01) ==
PROVIDERS: PCP Family Medicine; Visit Provider Obstetrics & Gynecology
PROC: (CPT 58558; principal; 2023-04-29 08:15)
DX: N80.03 Adenomyosis of the uterus (principal); N95.0 Postmenopausal bleeding
CPT/HCPCS: 58558; 88305; J0131; J2405

== ENCOUNTER 2023-05-11 08:06 | Outpatient (CLI) | payer MEDICARE, SELFPAY ==
[2023-05-11 09:16] LABS: PHA INR Fingerstick 2.4 (0.9-1.1)
== END 2023-05-11 09:28 ==
LOC: ACC 08:08
PROVIDERS: PCP Family Medicine; Visit Provider Family Medicine
DX: Z79.01 Long term (current) use of anticoagulants (principal); Z51.81 Encounter for therapeutic drug level monitoring; I48.91 Unspecified atrial fibrillation; Z95.0 Presence of cardiac pacemaker
CPT/HCPCS: 85610; 99211; G0463

== ENCOUNTER 2023-06-21 08:29 | Outpatient (CLI) | payer MEDICARE, SELFPAY ==
[2023-06-21 09:11] LABS: PHA INR Fingerstick 2.7 (0.9-1.1)
== END 2023-06-21 09:12 ==
LOC: ACC 08:31
PROVIDERS: PCP Family Medicine; Visit Provider Family Medicine
DX: Z79.01 Long term (current) use of anticoagulants (principal); Z51.81 Encounter for therapeutic drug level monitoring; I48.91 Unspecified atrial fibrillation
CPT/HCPCS: 85610; 99211; G0463

== ENCOUNTER 2023-08-25 08:23 | Outpatient (CLI) | payer MEDICARE, SELFPAY ==
[2023-08-25 10:08] LABS: Alanine Aminotransferase 34 U/L (12-78); Albumin Level 4.2 g/dl (3.5-5.0); Albumin/Globulin Ratio 1.8 (1.1-1.8); Alkaline Phosphatase 106 U/L (38-126); Anion Gap 11.5 mEq/L (5-15); Aspartate Amino Transferase 33 U/L (14-36); Bilirubin,Total 0.8 mg/dl (0.2-1.3); Blood Urea Nitrogen 19 mg/dl (7-17); Carbon Dioxide 30 mmol/L (22.0-30.0); Chloride 103 mmol/L (98-107); Cholesterol 148 mg/dl (140-200); Estimated Glomerular Filt Rate 62 ml/min (>60); GFR (African American) 75 ML/MIN (>60); Globulin 2.4 g/dL (1.3-3.2); Glucose 87 mg/dl (74-100); HDL Cholesterol 49 mg/dl (40-60); Potassium 4.5 mmoL/L (3.5-5.1); Sodium 140 mmol/L (136-145); Total Protein,Serum 6.6 g/dl (6.3-8.2); Triglycerides 64 mg/dl (30-150); VLDL Cholesterol 13 mg/dL (0-40)
[2023-08-25 10:19] LABS: Direct LDL Cholesterol 78.04 mg/dL (100-129)
[2023-08-25 12:45] LABS: T4 (Thyroxine) 10.2 ug/dl (5.53-11.0)
[2023-08-25 12:58] LABS: Thyroid Stimulating Hormone 3.09 uIU/mL (0.465-4.68)
[2023-08-25 13:18] LABS: Vitamin B12 486 pg/mL (239-931)
== END 2023-08-25 23:59 ==
LOC: LAB 08:24
PROVIDERS: PCP Family Medicine; Visit Provider Family Medicine
DX: E03.9 Hypothyroidism, unspecified (principal); E78.5 Hyperlipidemia, unspecified; R20.2 Paresthesia of skin
CPT/HCPCS: 36415; 80053; 80061; 82607; 84436; 84443

== ENCOUNTER 2023-12-30 13:35 | Outpatient (CLI) | payer MEDICARE, SELFPAY ==
[2023-12-30 14:23] LABS: Alanine Aminotransferase 39 U/L (12-78); Albumin Level 4.1 g/dl (3.5-5.0); Albumin/Globulin Ratio 1.6 (1.1-1.8); Alkaline Phosphatase 104 U/L (38-126); Anion Gap 13.5 mEq/L (5-15); Aspartate Amino Transferase 41 U/L (14-36); Bilirubin,Total 0.8 mg/dl (0.2-1.3); Blood Urea Nitrogen 26 mg/dl (7-17); Calcium 9.3 mg/dl (8.4-10.2); Carbon Dioxide 28 mmol/L (22.0-30.0); Chloride 101 mmol/L (98-107); Estimated Glomerular Filt Rate 49 ml/min (>60); GFR (African American) 60 ML/MIN (>60); Globulin 2.5 g/dL (1.3-3.2); Glucose 178 mg/dl (74-100); Potassium 4.5 mmoL/L (3.5-5.1); Sodium 138 mmol/L (136-145); Total Protein,Serum 6.6 g/dl (6.3-8.2)
== END 2023-12-30 23:59 | disposition home or self-care (01) ==
LOC: LAB 13:37
PROVIDERS: PCP Family Medicine
DX: I48.0 Paroxysmal atrial fibrillation (principal)
CPT/HCPCS: 36415; 80053

== ENCOUNTER 2024-02-03 14:37 | Outpatient (CLI) | payer MEDICARE, SELFPAY ==
--- NOTE | 2024-02-03 14:48 | ECG_ITS ---
APPROVED REPORT Exam: Resting ECG HR:100 bpm ECG Measurements Heart Rate 100 AXES MI 215 P 91 QRSd 82 QRS 78 QT 373 T 71 QTc 430 Conclusion ELECTRONIC ATRIAL PACEMAKER Underlying Afib rhythm Late R wave progression ABNORMAL ECG UNCONFIRMED REPORT Electronically signed by : Magen Munoz MD 02/04/2024 08:46:37
== END 2024-02-03 23:59 | disposition home or self-care (01) ==
LOC: RT 14:40
PROVIDERS: PCP Family Medicine; Visit Provider Family Medicine
DX: I48.0 Paroxysmal atrial fibrillation (principal)
CPT/HCPCS: 93005

== ENCOUNTER 2024-07-22 09:28 | Emergency (ER) | payer MEDICARE, SELFPAY ==
--- NOTE | 2024-07-22 10:33 | EXP.UTC ---
Discharge Plan Disposition Patient Disposition: Home, Self-Care Condition: Good Prescriptions Prescriptions: New azithromycin [Zithromax] 250 mg tablet 250 mg PO UD DOSE PK Qty: 6 0RF Rx Instructions: Take two (2) tablets today, then one (1) tablet days #2 thru #5 benzonatate 100 mg capsule 100 mg PO TIDP PRN (Reason: Cough) Qty: 30 0RF methylprednisolone 4 mg Tablets,Dose Pack 4 mg PO DIRECTED 6 Days Qty: 21 0RF Rx Instructions: Take 1 pack as directed for 6 days No Action atorvastatin 40 mg tablet 40 mg PO HS levothyroxine [Euthyrox] 75 mcg tablet 75 mcg PO DAILY Patient Comments: TAKE 1 TABLET BY MOUTH ONCE DAILY Climara Pro 0.045-0.015 mg/24 hr patch weekly 1 patch transdermal WEEKLY Qty: 12 3RF Rx Instructions: APPLY 1 PATCH TO THE SKIN WEEKLY dofetilide 250 mcg capsule 250 mcg PO DAILY Patient Comments: TAKE 1 CAPSULE BY MOUTH EVERY 12 HOURS metoprolol tartrate 50 mg tablet 50 mg PO DAILY Patient Comments: TAKE 1 & 1/2 (ONE & ONE-HALF) TABLETS BY MOUTH TWICE DAILY fluoxetine 10 mg capsule 10 mg PO DAILY Patient Comments: TAKE 1 CAPSULE BY MOUTH ONCE DAILY Climara Pro 0.045-0.015 mg/24 hr patch weekly 0.045 patch transdermal DIRECTED Patient Comments: APPLY 1 PATCH TO THE SKIN ONCE A WEEK warfarin 5 mg tablet 5 mg PO [facility] Referrals Follow up/Referrals: Andreas Bradshaw MD [Primary Care Provider] - See instructions Activity Restrictions/Add. Instructions Additional Instructions/Restrictions: Drink plenty of fluids. Take tylenol or ibuprofen for pain or fever. Take the medications as directed. Follow up with your regular doctor. GO TO THE ER FOR ANY WORSENING SYMPTOMS Clinical Impressions Clinical Impression: Sinusitis Instructions Patient Instructions: Sinusitis, DI for Sinusitis Print Language Print Language: Tuvaluan Discharge ED Provider: Sergey Crespo [facility] [place] HPI General Stated complaint: fever, congestion, sore throat, headache Time Seen by Provider: 07/22/24 10:32 Related Data Home Medications ?Medication ?Instructions ?Recorded ?Confirmed atorvastatin 40 mg tablet 40 mg PO HS Cholesterol 04/14/18 07/22/24 levothyroxine 75 mcg tablet 75 mcg PO DAILY thyroid 02/26/22 07/22/24 (Euthyrox) warfarin 5 mg tablet 5 mg PO SUTUTHSA Blood thinner, 04/20/23 07/22/24 Afib dofetilide 250 mcg capsule 250 mcg PO DAILY 07/22/24 07/22/24 estradiol 0.045 mg-levonorgestrel 0.045 patch transdermal DIRECTED 07/22/24 07/22/24 0.015 mg/24hr weekly transderm patch (Climara Pro) fluoxetine 10 mg capsule 10 mg PO DAILY 07/22/24 07/22/24 metoprolol tartrate 50 mg tablet 50 mg PO DAILY 07/22/24 07/22/24 Previous Rx's ?Medication ?Instructions ?Recorded estradiol 0.045 mg-levonorgestrel 1 patch transdermal WEEKLY HORMONE 08/30/23 0.015 mg/24hr weekly transderm PATCH #12 ea patch (Climara Pro) azithromycin 250 mg tablet 250 mg PO UD DOSE PK #6 tabs 07/22/24 (Zithromax) benzonatate 100 mg capsule 100 mg PO TIDP PRN Cough #30 caps 07/22/24 methylprednisolone 4 mg tablets in 4 mg PO DIRECTED 6 days #21 tabs 07/22/24 a dose pack Allergies Allergy/AdvReac Type Severity Reaction Status Date / Time No Known Allergies Allergy Verified 04/29/23 06:59 [facility] Disclaimer: The information contained in this section may have been updated after the patient was seen, as this information can be updated by other users. Medical History Allergies History of anemia History of COVID-19 History of pacemaker Hyperlipidemia Hypothyroid Macular degeneration of both eyes Postmenopausal bleeding Thickened endometrium Surgical History H/O mitral valve replacement History of open heart surgery History of tubal ligation Hx of cardiac cath Hx of tricuspid valve repair Family History Other Cancer Social History Smoking Status: Never smoker alcohol intake: never substance use type: denies use current occupational status: retired Travel in the last 8 weeks: None Have you lived/traveled outside [place] in past 30 days?: No Contact w/someone who lives/traveled outside US past 30 days?: No Exposure to someone with infectious disease in past 14 days?: No Do you have a fever (greater than 100.4 F or 38 C)?: Yes Have you tested positive for COVID-19: No Exposed to someone with COVID-19 in past 14 days?: No Do you have a sore throat?: Yes Do you have a cough?: Yes Do you have any weakness?: No Do you have any diarrhea?: No Are you experiencing any unusual bleeding?: No Do you have any muscle aches/pain?: No Do you have any abdominal pain?: No Are you experiencing loss of taste or smell?: No ROS Obtained: Yes All systems reviewed & no additional complaints except as documented Constitutional Constitutional: Reports poor appetite Eyes Eyes: Reports system reviewed and no additional complaints, except as documented ENT Ears, Nose, Mouth, and Throat: Reports as per HPI Cardiovascular Cardiovascular: Reports system reviewed and no additional complaints, except as documented and Denies chest pain Respiratory Respiratory: Denies shortness of breath, Denies chest congestion, Reports cough, Denies stridor and Denies wheezing Gastrointestinal Gastrointestingal: Reports system reviewed and no additional complaints, except as documented; Denies abdominal pain, diarrhea or vomiting Musculoskeletal Musculoskeletal: Reports system reviewed and no additional complaints, except as documented and Denies arthralgias Integumentary/Breasts Skin/Breast: Reports system reviewed and no additional complaints, except as documented and Denies rash Neurologic Neurologic: Denies paresthesias Allergic/Immunologic Allergic/Immunologic: Denies wheezing Physical Exam General General appearance: alert and in no apparent distress Eye Eye exam: Present normal appearance, PERRL and EOMI ENT ENT exam: Present mucous membranes moist and normal external ear exam Expanded ENT Exam External ear exam: Present normal external inspection TM/Canal exam: Bilateral TM: erythema and bulging Nose exam: Absent sinus tenderness Nasal speculum exam: Bilateral: normal Mouth exam: Present normal external inspection; Absent drooling Teeth exam: Present normal inspection Throat exam: Present tonsillar erythema and tonsillomegaly Neck Neck exam: Present normal inspection, full ROM and trachea midline; Absent tenderness, lymphadenopathy or thyromegaly Chest Chest inspection: Present normal inspection and symmetric chest wall rise; Absent tenderness or rash Respiratory Respiratory exam: Present normal lung sounds bilaterally; Absent respiratory distress, wheezes, stridor or accessory muscle use Cardiovascular Cardiovascular exam: Present regular rate, normal rhythm and normal heart sounds Abdominal Exam Abdominal exam: Present soft; Absent distention, tenderness, guarding, rebound or rigidity Extremities Exam Extremities exam: Present normal inspection, full ROM and normal capillary refill; Absent tenderness or calf tenderness Back Exam Back exam: Present normal inspection and full ROM; Absent tenderness Neurological Exam Neurological exam: Present alert and oriented X3 Psychiatric Psychiatric exam: Present normal affect and normal mood Skin Skin exam: Present warm, dry, intact and normal color Lymphatic Lymphatic Findings: no adenopathy Medical Decision Making Medical Records Medical records reviewed: No I reviewed the patient's medical records. Screening: Per USPSTF and CDC recommendations, given the prevalence of disease in our region, it is our hospital?s policy to screen for HIV and viral Hepatitis for all patients aged 18 and over and those with ongoing risk factors. Lg Inquiry Pt receiving controlled substance: No
[2024-07-22 10:37] VITALS: BP 122/74; PULSE 87; RESP 20; TEMP 36.9; O2SAT 97; BMI 24.0
[2024-07-22 10:48] LABS: UTC Strep Screen (Rapid) Negative (Negative)
[2024-07-22 10:54] LABS: UTC Influenza A Antigen Negative (Negative); UTC Influenza B Antigen Negative (Negative)
[2024-07-22 11:20] VITALS: BP 122/74; PULSE 87; RESP 20; TEMP 36.9
== END 2024-07-22 11:23 | disposition home or self-care (01) ==
PROVIDERS: Emergency Provider Nurse Practitioner Family; PCP Family Medicine
DX: J32.9 Chronic sinusitis, unspecified (principal); R50.9 Fever, unspecified; R09.81 Nasal congestion; J02.9 Acute pharyngitis, unspecified; R51.9 Headache, unspecified
CPT/HCPCS: 87804; 87880; 99212; G0381

== ENCOUNTER 2024-10-13 11:56 | Emergency (ER) | payer MEDICARE, SELFPAY ==
[2024-10-13] VITALS (47 sets, daily range): BP systolic 86–144; BP diastolic 64–83; PULSE 65–165; RESP 14–18; TEMP 36.7; O2SAT 94–100; BMI 24.3
--- NOTE | 2024-10-13 11:59 | ECG_ITS ---
APPROVED REPORT Exam: Resting ECG HR:170 bpm ECG Measurements Heart Rate 170 AXES QRSd 74 QRS 78 QT 275 T 81 QTc 367 Conclusion Supraventricular tachycardia normal axis Electronically signed by : Eryn Borrero, 10/13/2024 16:27:23
[2024-10-13] MEDS: ADENOSINE 6MG/2ML VIAL 6 MG IV (12:07)
[2024-10-13] MEDS: ADENOSINE 6MG/2ML VIAL 12 MG IV (12:10)
[2024-10-13] MEDS: ETOMIDATE 40MG/20ML VIAL 10 MG IV (12:19)
--- NOTE | 2024-10-13 12:25 | ECG_ITS ---
APPROVED REPORT Exam: Resting ECG HR:83 bpm ECG Measurements Heart Rate 83 AXES AK 197 P 115 QRSd 81 QRS 84 QT 342 T 70 QTc 382 Conclusion Atrial paced rhythm normal axis no ST elevation ST depression or T wave inversions concerning for ischemia Electronically signed by : Eryn Borrero, 10/13/2024 16:26:23
[2024-10-13] MEDS: ASPIRIN 81MG CHEWABLE TABLET 324 MG PO (12:38)
--- NOTE | 2024-10-13 12:38 | XR_ITS ---
FINAL REPORT CLINICAL HISTORY: Shortness of breath COMPARISON: None FINDINGS: CHEST, 1 view No acute pulmonary opacity is present. There is no evidence of effusion or pneumothorax. There is evidence of prior median sternotomy, presumably from CABG. There is a left-sided pacer present. The patient is status post mitral valve replacement. Heart size is normal. IMPRESSION: No acute findings. Reviewed, Interpreted and Dictated by Gustavo Whitney MD Transcribed by Mary Beth Vieira Authenticated and [facility]
--- NOTE | 2024-10-13 12:39 | ED_ITS ---
Discharge Plan Disposition Chief Complaint: Chest Pain Prescriptions Prescriptions: No Action atorvastatin 40 mg tablet 40 mg PO HS levothyroxine [Euthyrox] 75 mcg tablet 75 mcg PO DAILY Patient Comments: TAKE 1 TABLET BY MOUTH ONCE DAILY Climara Pro 0.045-0.015 mg/24 hr patch weekly 1 patch transdermal WEEKLY Qty: 12 3RF Rx Instructions: APPLY 1 PATCH TO THE SKIN WEEKLY dofetilide 250 mcg capsule 250 mcg PO DAILY Patient Comments: TAKE 1 CAPSULE BY MOUTH EVERY 12 HOURS metoprolol tartrate 50 mg tablet 50 mg PO DAILY Patient Comments: TAKE 1 & 1/2 (ONE & ONE-HALF) TABLETS BY MOUTH TWICE DAILY fluoxetine 10 mg capsule 10 mg PO DAILY Patient Comments: TAKE 1 CAPSULE BY MOUTH ONCE DAILY Climara Pro 0.045-0.015 mg/24 hr patch weekly 0.045 patch transdermal DIRECTED Patient Comments: APPLY 1 PATCH TO THE SKIN ONCE A WEEK azithromycin [Zithromax] 250 mg tablet 250 mg PO UD DOSE PK Qty: 6 0RF Rx Instructions: Take two (2) tablets today, then one (1) tablet days #2 thru #5 benzonatate 100 mg capsule 100 mg PO TIDP PRN (Reason: Cough) Qty: 30 0RF methylprednisolone 4 mg Tablets,Dose Pack 4 mg PO DIRECTED 6 Days Qty: 21 0RF Rx Instructions: Take 1 pack as directed for 6 days warfarin 5 mg tablet 5 mg PO KODAKUTHSA Referrals Follow up/Referrals: Provider,Referral, [Referring] - See instructions Print Language Print Language: Portuguese Discharge ED Provider: Eryn Borrero HPI General Chief Complaint: Chest Pain Stated Complaint: Chest Pain Time Seen by Provider: 10/13/24 12:00 History of Present Illness HPI narrative: Patient is a 69-year-old with past medical history significant for atrial fibrillation on warfarin status post pacemaker who presents to the emergency department with chest pain shortness of breath and fast beating heart. Patient walks on the treadmill every morning and after her walk this morning developed chest pain shortness of breath and a fast beating heart. This has happened in the past he is usually improved with medications. Patient has severe pain feels like she is about to pass out and diaphoretic. Related Data Home Medications ?Medication ?Instructions ?Recorded ?Confirmed atorvastatin 40 mg tablet 40 mg PO HS Cholesterol 04/14/18 07/22/24 levothyroxine 75 mcg tablet 75 mcg PO DAILY thyroid 02/26/22 07/22/24 (Euthyrox) warfarin 5 mg tablet 5 mg PO SUTUTHSA Blood thinner, 04/20/23 07/22/24 Afib dofetilide 250 mcg capsule 250 mcg PO DAILY 07/22/24 07/22/24 estradiol 0.045 mg-levonorgestrel 0.045 patch transdermal DIRECTED 07/22/24 07/22/24 0.015 mg/24hr weekly transderm patch (Climara Pro) fluoxetine 10 mg capsule 10 mg PO DAILY 07/22/24 07/22/24 metoprolol tartrate 50 mg tablet 50 mg PO DAILY 07/22/24 07/22/24 Previous Rx's ?Medication ?Instructions ?Recorded estradiol 0.045 mg-levonorgestrel 1 patch transdermal WEEKLY HORMONE 08/30/23 0.015 mg/24hr weekly transderm PATCH #12 ea patch (Climara Pro) azithromycin 250 mg tablet 250 mg PO UD DOSE PK #6 tabs 07/22/24 (Zithromax) benzonatate 100 mg capsule 100 mg PO TIDP PRN Cough #30 caps 07/22/24 methylprednisolone 4 mg tablets in 4 mg PO DIRECTED 6 days #21 tabs 07/22/24 a dose pack Allergies Allergy/AdvReac Type Severity Reaction Status Date / Time No Known Allergies Allergy Verified 04/29/23 06:59 [facility] Disclaimer: The information contained in this section may have been updated after the patient was seen, as this information can be updated by other users. Medical History (Updated 10/13/24 @ 13:29 by Kierra Caro APRN) SVT (supraventricular tachycardia) Macular degeneration of both eyes History of COVID-19 Hypothyroid Allergies Hyperlipidemia History of pacemaker History of anemia Thickened endometrium Postmenopausal bleeding Surgical History Hx of tricuspid valve repair H/O mitral valve replacement Hx of cardiac cath History of tubal ligation History of open heart surgery Family History Other Cancer Social History Smoking Status: Never smoker alcohol intake: never substance use type: denies use current occupational status: retired Travel in the last 8 weeks: None Have you lived/traveled outside [place] in past 30 days?: No Contact w/someone who lives/traveled outside US past 30 days?: No Exposure to someone with infectious disease in past 14 days?: No Do you have a fever (greater than 100.4 F or 38 C)?: No Have you tested positive for COVID-19: No Exposed to someone with COVID-19 in past 14 days?: No Do you have a sore throat?: No Do you have a cough?: No Do you have any weakness?: No Do you have any diarrhea?: No Are you experiencing any unusual bleeding?: No Do you have any muscle aches/pain?: No Do you have any abdominal pain?: No Are you experiencing loss of taste or smell?: No Other Medical History Have you received the Flu Vaccine for this season: No Have you received the Pneumonia Vaccine: No ROS Obtained: Yes All systems reviewed & no additional complaints except as documented Physical Exam General General appearance: alert, in distress and other (Pale) Respiratory Respiratory exam: Absent respiratory distress or accessory muscle use Cardiovascular Cardiovascular exam: Present normal rhythm and tachycardia Abdominal Exam Abdominal exam: Present soft; Absent distention or tenderness Neurological Exam Neurological exam: Present alert and oriented X3 Skin Skin exam: Present diaphoresis and pallor HEART Score HEART Score HEART Score assessment performed?: Yes History (anamnesis): Highly suspicious ECG: Non-specific disturbance Age: >65 years Risk factors: Atherosclerosis history Troponin: > 3x normal limit HEART Score: 9 Critical Care Critical Care Time Critical Care Time: Yes Attestation: On 10/13/24, the high probability of a clinically significant, sudden or life threatening deterioration of the following system(s) required my full and direct attention, intervention and personal management. The time I documented below is in addition to time spent performing reported procedures but includes the following listed in this critical care notation. Total Time Total Critical Care Time: 30 Medical Decision Making Lg Inquiry Pt receiving controlled substance: No Vital Signs Vital Signs: 10/13/24 11:56 10/13/24 12:29 10/13/24 12:31 Temperature 98.0 F Temperature Source Oral Pulse Rate 76 72 Pulse Rate [Apical] 165 H Respiratory Rate 18 16 18 Blood Pressure 144/79 H 128/68 Blood Pressure [Right Arm] 106/69 L Blood Pressure Mean 100 88 Blood Pressure Mean [Right Arm] 81 Blood Pressure Source [Right Arm] Automatic Cuff Blood Pressure Position [Right Arm] Sitting 02 Sat by Pulse Oximetry 98 100 100 Oxygen Delivery Method Room Air 10/13/24 12:33 10/13/24 12:35 10/13/24 12:40 Temperature Temperature Source Pulse Rate 70 67 76 Pulse Rate [Apical] Respiratory Rate 18 14 18 Blood Pressure 103/70 L 86/65 L 111/69 Blood Pressure [Right Arm] Blood Pressure Mean 81 72 76 Blood Pressure Mean [Right Arm] Blood Pressure Source [Right Arm] Blood Pressure Position [Right Arm] 02 Sat by Pulse Oximetry 97 99 94 L Oxygen Delivery Method 10/13/24 12:43 10/13/24 12:45 10/13/24 12:48 Temperature Temperature Source Pulse Rate 68 67 70 Pulse Rate [Apical] Respiratory Rate 16 16 14 Blood Pressure 125/74 116/72 119/70 Blood Pressure [Right Arm] Blood Pressure Mean 88 80 80 Blood Pressure Mean [Right Arm] Blood Pressure Source [Right Arm] Blood Pressure Position [Right Arm] 02 Sat by Pulse Oximetry 95 95 96 Oxygen Delivery Method 10/13/24 12:50 10/13/24 12:55 10/13/24 12:58 Temperature Temperature Source Pulse Rate 70 65 75 Pulse Rate [Apical] Respiratory Rate 16 18 16 Blood Pressure 119/71 120/70 110/68 Blood Pressure [Right Arm] Blood Pressure Mean 82 81 77 Blood Pressure Mean [Right Arm] Blood Pressure Source [Right Arm] Blood Pressure Position [Right Arm] 02 Sat by Pulse Oximetry 98 100 97 Oxygen Delivery Method 10/13/24 13:00 10/13/24 13:03 10/13/24 13:05 Temperature Temperature Source Pulse Rate 70 72 67 Pulse Rate [Apical] Respiratory Rate 18 16 14 Blood Pressure 121/74 122/68 120/69 Blood Pressure [Right Arm] Blood Pressure Mean 83 80 80 Blood Pressure Mean [Right Arm] Blood Pressure Source [Right Arm] Blood Pressure Position [Right Arm] 02 Sat by Pulse Oximetry 99 98 100 Oxygen Delivery Method 10/13/24 13:08 10/13/24 13:10 10/13/24 13:13 Temperature Temperature Source Pulse Rate 69 69 70 Pulse Rate [Apical] Respiratory Rate 16 18 16 Blood Pressure 128/75 118/64 118/70 Blood Pressure [Right Arm] Blood Pressure Mean 83 77 87 Blood Pressure Mean [Right Arm] Blood Pressure Source [Right Arm] Blood Pressure Position [Right Arm] 02 Sat by Pulse Oximetry 98 100 100 Oxygen Delivery Method 10/13/24 13:15 10/13/24 13:18 10/13/24 13:20 Temperature Temperature Source Pulse Rate 70 70 70 Pulse Rate [Apical] Respiratory Rate 16 17 17 Blood Pressure 126/69 123/72 117/69 Blood Pressure [Right Arm] Blood Pressure Mean 86 82 81 Blood Pressure Mean [Right Arm] Blood Pressure Source [Right Arm] Blood Pressure Position [Right Arm] 02 Sat by Pulse Oximetry 98 100 100 Oxygen Delivery Method 10/13/24 13:23 10/13/24 13:25 10/13/24 13:28 Temperature Temperature Source Pulse Rate 69 70 Pulse Rate [Apical] Respiratory Rate 18 14 Blood Pressure 121/72 121/68 123/75 Blood Pressure [Right Arm] Blood Pressure Mean 83 84 86 Blood Pressure Mean [Right Arm] Blood Pressure Source [Right Arm] Blood Pressure Position [Right Arm] 02 Sat by Pulse Oximetry 100 100 98 Oxygen Delivery Method 10/13/24 13:30 10/13/24 13:32 10/13/24 13:35 Temperature Temperature Source Pulse Rate Pulse Rate [Apical] Respiratory Rate Blood Pressure 105/64 L 119/71 119/72 Blood Pressure [Right Arm] Blood Pressure Mean 77 81 83 Blood Pressure Mean [Right Arm] Blood Pressure Source [Right Arm] Blood Pressure Position [Right Arm] 02 Sat by Pulse Oximetry 98 100 100 Oxygen Delivery Method 10/13/24 13:38 10/13/24 13:40 10/13/24 13:43 Temperature Temperature Source Pulse Rate Pulse Rate [Apical] Respiratory Rate Blood Pressure 119/67 116/65 114/71 Blood Pressure [Right Arm] Blood Pressure Mean 81 86 80 Blood Pressure Mean [Right Arm] Blood Pressure Source [Right Arm] Blood Pressure Position [Right Arm] 02 Sat by Pulse Oximetry 100 99 98 Oxygen Delivery Method 10/13/24 13:45 10/13/24 13:48 10/13/24 13:50 Temperature Temperature Source Pulse Rate Pulse Rate [Apical] Respiratory Rate Blood Pressure 116/67 118/70 117/68 Blood Pressure [Right Arm] Blood Pressure Mean 78 81 82 Blood Pressure Mean [Right Arm] Blood Pressure Source [Right Arm] Blood Pressure Position [Right Arm] 02 Sat by Pulse Oximetry 99 100 Oxygen Delivery Method 10/13/24 13:53 10/13/24 13:55 10/13/24 13:58 Temperature Temperature Source Pulse Rate Pulse Rate [Apical] Respiratory Rate Blood Pressure 121/75 125/76 128/71 Blood Pressure [Right Arm] Blood Pressure Mean 86 85 85 Blood Pressure Mean [Right Arm] Blood Pressure Source [Right Arm] Blood Pressure Position [Right Arm] 02 Sat by Pulse Oximetry Oxygen Delivery Method 10/13/24 14:00 10/13/24 14:03 10/13/24 14:05 Temperature Temperature Source Pulse Rate Pulse Rate [Apical] Respiratory Rate 16 16 Blood Pressure 129/74 117/76 121/68 Blood Pressure [Right Arm] Blood Pressure Mean 92 85 82 Blood Pressure Mean [Right Arm] Blood Pressure Source [Right Arm] Blood Pressure Position [Right Arm] 02 Sat by Pulse Oximetry 99 98 98 Oxygen Delivery Method 10/13/24 14:08 10/13/24 14:10 10/13/24 14:13 Temperature Temperature Source Pulse Rate Pulse Rate [Apical] Respiratory Rate Blood Pressure 114/69 123/83 130/76 Blood Pressure [Right Arm] Blood Pressure Mean 82 88 89 Blood Pressure Mean [Right Arm] Blood Pressure Source [Right Arm] Blood Pressure Position [Right Arm] 02 Sat by Pulse Oximetry 99 97 Oxygen Delivery Method 10/13/24 14:15 10/13/24 14:18 10/13/24 14:20 Temperature Temperature Source Pulse Rate Pulse Rate [Apical] Respiratory Rate Blood Pressure 123/73 121/69 125/75 Blood Pressure [Right Arm] Blood Pressure Mean 84 85 85 Blood Pressure Mean [Right Arm] Blood Pressure Source [Right Arm] Blood Pressure Position [Right Arm] 02 Sat by Pulse Oximetry 99 98 Oxygen Delivery Method 10/13/24 14:23 Temperature Temperature Source Pulse Rate Pulse Rate [Apical] Respiratory Rate Blood Pressure 129/72 Blood Pressure [Right Arm] Blood Pressure Mean 89 Blood Pressure Mean [Right Arm] Blood Pressure Source [Right Arm] Blood Pressure Position [Right Arm] 02 Sat by Pulse Oximetry Oxygen Delivery Method Lab Data Labs: Lab Results 10/13/24 12:07: WBC 10.8, RBC 4.35, Hgb 14.0, Hct 43.1, MCV 99.1 H, MCH 32.2 H, MCHC 32.5, RDW 13.6, Plt Count 200, MPV 10.7 H, Neut % (Auto) 68.6, Lymph % (Auto) 18.1, [place] % (Auto) 8.9, Eos % (Auto) 2.8, Baso % (Auto) 1.0, Neut # (Auto) 7.4, Lymph # (Auto) 2.0, [place] # (Auto) 1.0, Eos # (Auto) 0.3, Baso # (Auto) 0.1, PT 11.5, INR 1.03, Sodium 137, Potassium 4.2, Chloride 102, Carbon Dioxide 26, Anion Gap 13.2, BUN 27 H, Creatinine 1.20 H, Estimated Creat Clear 50, Estimated GFR 44 L, Est GFR ( Amer) 54 L, Glucose 158 H, Calcium 9.2, Magnesium 1.8, Total Bilirubin 1.0, AST 52 H, ALT 59, Alkaline Phosphatase 192 H , Troponin I < 0.01, NT-Pro-B Natriuret Pep 2130 H, Total Protein 7.1, Albumin 4.5, Globulin 2.6, Albumin/Globulin Ratio 1.7, TSH 2.30, Free T4 1.59, HCV Ab COLLETTE w/Rflx PCR Qn Negative, HIV Ag/Ab Combo Qual Negative 10/13/24 12:07 10/13/24 12:07 Response Orders (Tests/Meds): ED MEDICATIONS Discontinued Medications Generic Name Dose Route Start Last Admin Trade Name Freq PRN Reason Stop Dose Admin Adenosine 6 mg 10/13/24 12:07 10/13/24 12:07 Adenosine 6mg/2ml Vial IV 10/13/24 12:08 6 mg ONCE ONE Administration Adenosine 12 mg 10/13/24 12:10 10/13/24 12:10 Adenosine 6mg/2ml Vial IV 10/13/24 12:11 12 mg ONCE ONE Administration Aspirin 324 mg 10/13/24 12:38 10/13/24 12:38 Aspirin 81mg Chewable Tablet PO 10/13/24 12:39 324 mg ONCE ONE Administration Etomidate 10 mg 10/13/24 12:19 10/13/24 12:19 Etomidate 40mg/20ml Vial IV 10/13/24 12:20 10 mg ONCE ONE Administration Magnesium Sulfate 2 gm in 50 mls @ 50 mls/hr 10/13/24 13:59 10/13/24 14:15 Magnesium Sulfate 2gm/50ml Premix IV 10/13/24 14:58 50 mls/hr ONCE ONE Administration ORDERS Category Date Time Status XR chest portable Stat Exams 10/13/24 12:38 Completed Complete Blood Count Auto Diff Stat Lab 10/13/24 12:07 Completed Comprehensive Metabolic Panel Stat Lab 10/13/24 12:07 Completed Free T4 (Free Thyroxine) Stat Lab 10/13/24 12:07 Completed HIV Combo Stat Lab 10/13/24 12:07 Completed Hepatitis C Ab Qual. W/ RFX Stat Lab 10/13/24 12:07 Completed MAG [Magnesium] Stat Lab 10/13/24 12:07 Completed NT Pro Brain Natriuretic Pep. Stat Lab 10/13/24 12:07 Completed Prothrombin Time INR Stat Lab 10/13/24 12:07 Completed TSH [Thyroid Stimulating Hormone] Stat Lab 10/13/24 12:07 Completed Troponin I Q3H Lab 10/13/24 15:45 Ordered Troponin I Q3H Lab 10/13/24 18:45 Ordered Troponin I Stat Lab 10/13/24 12:07 Completed MDM Narrative Medical Decision Narrative: In summary, this 69-year-old female presents to the emergency department today with chest pain and shortness of breath. On initial evaluation patient is diaphoretic tachycardic normotensive afebrile saturating appropriately on room air. Differential diagnosis includes but is not limited to SVT ACS pneumothorax A-fib RVR. Based on these concerns, I ordered EKG CBC mag CMP free T4 TSH BNP troponin. ECG personally interpreted demonstrates supraventricular tachycardia. During initial evaluation patient developed hypotension was given 6 mg of adenosine and then 12 mg adenosine without sustained cardioversion to normal sinus rhythm. Cardiology was consulted due to development of ST elevations on the school lunch monitor with temporary cardioversion from SVT to normal sinus rhythm. Patient was given etomidate for procedural sedation for synchronized cardioversion. Patient received 2 L LR 2 doses of adenosine and 2 g of magnesium for treatment. Labs personally reviewed demonstrate elevated troponin and BNP. I had an interactive conversation with cardiology who recommended outpatient follow-up with patient's automotive detailer versus inpatient admission for observation. Patient elected to be discharged and outpatient follow-up with her automotive detailer at [facility]. I recommended seeing her automotive detailer as soon as possible for possible stress test and echo due to her SVT causing any hemodynamic instability today. I also advised her to avoid any strenuous activities until follow-up with cardiology. XR personally interpreted demonstrates no significant cardiomegaly, no interstitial edema. On reassessment patient has improvement of symptoms chest pain is resolved. Patient ambulatory without difficulty. Admission considered and offered however patient requested to be discharged with outpatient follow-up with her automotive detailer at [facility], [place].
--- NOTE | 2024-10-13 12:50 | PC.NURSE ---
1156 PT ARRIVES WITH CP, SHORTNESS OF BREATH, FAST AND IRREGULAR HR PER TIRAGE 1159 EKG SHOWS SVT, PT PLACED ON ZOLL MONITOR. 1200 DR BURNS AT BEDSIDE 1201 MD UPDATING PT AND FAMILY, IV TO R AC. LR BOLUS STARTED 1202 CARDIOLOGY PAGED 1207 ADENOSINE 6MG PUSH PER MD ORDERS 1210 ADENOSINE 12MG PUSH PER MD ORDER. 1214 324 ASA GIVEN 1216 VERBAL CONSENT FOR CARDIOVERSION EXPLAINED TO PT AND FAMILY. PT AND FAMILY CONSENT TO CARDIOVERSION 1219 ETOMIDATE 5ML, CARDIOLOGY AT BEDSIDE. O2 APPLIED, END-TIDAL 1222 ETOMIDATE PUSH COMPLETE, PT TOLERATED WELL 1224 SYNCHED FOR CARDIOVERSION, 200JOULES AT THIS TIME 1225 RHYTHM CHANGE, A-FIB, SVT RESOLVED. 1227 ZOFRAN 4MG IV AND ADDITIONAL LR BOLUS GIVEN. PT DROWSY, AWAKENS TO STIMULI 1230 PT CONTINUES TO MAINTAIN AIRWAY, O2 IN PLACE. FAMILY AT BEDSIDE. VSS. 1245 PT AWAKE AND TALKING WITH FAMILY. DENIES CHEST PAIN. CALL LIGHT WITHIN REACH. NO NEEDS AT THIS TIME. ADDITIONAL WARM BLANKET PROVIDED. HR 70.
[2024-10-13 12:51] LABS: Basophils # 0.1 K/mm3 (0-0.2); Eosinophils # 0.3 K/mm3 (0.0-0.4); Eosinophils % 2.8 % (0.1-12.0); Hematocrit 43.1 % (37.0-47.0); Lymphocytes % 18.1 % (10-50); Mean Corpuscular HGB Conc 32.5 g/dL (31.8-35.4); Mean Corpuscular Hemoglobin 32.2 pg (27.0-31.2); Mean Corpuscular Volume 99.1 fl (81-99); Mean Platelet Volume 10.7 fl (7.4-10.4); Monocytes % 8.9 % (1.7-9.3); Neutrophils # 7.4 K/mm3 (1.8-7.8); Neutrophils % 68.6 % (37.0-80.0); Platelet Count 200 K/mm3 (142-424); Red Blood Count 4.35 M/mm3 (4.20-5.40); Red Cell Distribution Width 13.6 % (11.5-17.5); White Blood Count 10.8 K/mm3 (4.8-10.8)
[2024-10-13 12:58] LABS: INR 1.03 (0.9-1.1); Prothrombin Time 11.5 seconds (10.1-12.5)
[2024-10-13 13:12] LABS: Albumin Level 4.5 g/dl (3.5-5.0); Chloride 102 mmol/L (98-107); Potassium 4.2 mmoL/L (3.5-5.1); Sodium 137 mmol/L (136-145)
[2024-10-13 13:15] LABS: Alanine Aminotransferase 59 U/L (12-78); Albumin/Globulin Ratio 1.7 (1.1-1.8); Alkaline Phosphatase 192 U/L (38-126); Anion Gap 13.2 mEq/L (5-15); Aspartate Amino Transferase 52 U/L (14-36); Blood Urea Nitrogen 27 mg/dl (7-17); Calcium 9.2 mg/dl (8.4-10.2); Carbon Dioxide 26 mmol/L (22.0-30.0); Creatinine Clearance Estimated 50 mL/min (50-200); Estimated Glomerular Filt Rate 44 ml/min (>60); GFR (African American) 54 ML/MIN (>60); Globulin 2.6 g/dL (1.3-3.2); Glucose 158 mg/dl (74-100); Total Protein,Serum 7.1 g/dl (6.3-8.2)
[2024-10-13 13:16] LABS: Magnesium 1.8 mg/dl (1.6-2.3)
--- NOTE | 2024-10-13 13:25 | EXP.CARD.CON ---
History of Present Illness History of Present Illness Consult date: 10/13/24 Requesting physician: Eryn Borrero Consult reason: chest pain Chief complaint: chest pain History of present illness: This is a 69-year-old white female who presented to the emergency department complaints of chest pain. She has have a past medical history for atrial fibrillation/flutter status post pacemaker and watchman's device. The patient states that she was walking on the treadmill this morning and felt fine. She states that after she got finished working out she was in the kitchen getting ready to bake a cake when she had sudden onset of chest pain and shortness of breath. She states that she felt her heart beating really fast. She states that when this typically happens she takes an extra dose of metoprolol and the sensation will go away but she did not take an extra dose of metoprolol this time and it was different than usual because she was having chest pain and shortness of breath which she had never experienced. The chest pain was a pressure sensation in the center of her chest. It did not radiate. It is associate with the shortness of breath and diaphoresis. This was a severe pain and felt like she was going to pass out. She came to the emergency department and was found to be in SVT with a heart rate in the 160-170s. She was treated with adenosine 6 mg and adenosine 12 mg and she remained in SVT. The patient did undergo synchronized cardioversion which restored her to a paced rhythm with PACs. The patient's chest pain resolved with the cardioversion. She now currently denies any chest pain or pressure. She denies any shortness of breath or edema. She denies any fever, chills, nausea, vomiting, diarrhea, PND orthopnea. The patient follows with cardiology at [facility]. [facility] Disclaimer: The information contained in this section may have been updated after the patient was seen, as this information can be updated by other users. Medical History (Updated 10/13/24 @ 13:29 by Kierra Caro APRN) SVT (supraventricular tachycardia) Macular degeneration of both eyes History of COVID-19 Hypothyroid Allergies Hyperlipidemia History of pacemaker History of anemia Thickened endometrium Postmenopausal bleeding Surgical History Hx of tricuspid valve repair H/O mitral valve replacement Hx of cardiac cath History of tubal ligation History of open heart surgery Family History Other Cancer Social History Smoking Status: Never smoker alcohol intake: never substance use type: denies use current occupational status: retired Travel in the last 8 weeks: None Have you lived/traveled outside US in past 30 days?: No Contact w/someone who lives/traveled outside US past 30 days?: No Exposure to someone with infectious disease in past 14 days?: No Do you have a fever (greater than 100.4 F or 38 C)?: No Have you tested positive for COVID-19: No Exposed to someone with COVID-19 in past 14 days?: No Do you have a sore throat?: No Do you have a cough?: No Do you have any weakness?: No Do you have any diarrhea?: No Are you experiencing any unusual bleeding?: No Do you have any muscle aches/pain?: No Do you have any abdominal pain?: No Are you experiencing loss of taste or smell?: No Review of Systems Review of Systems Review of systems:: pertinent systems reviewed and negative unless documented below Constitutional Constitutional: Reports system reviewed and no additional complaints, except as documented Eyes Eyes: Reports system reviewed and no additional complaints, except as documented ENT Ears, Nose, Mouth, and Throat: Reports system reviewed and no additional complaints, except as documented *Cardiovascular Cardiovascular: Reports system reviewed and no additional complaints, except as documented, Reports chest pain, Reports dyspnea, Reports palpitations and Reports rapid heart rate *Respiratory Respiratory: Reports system reviewed and no additional complaints, except as documented and Reports dyspnea *Gastrointestinal Gastrointestinal: Reports system reviewed and no additional complaints, except as documented *Genitourinary Genitourinary: Reports system reviewed and no additional complaints, except as documented *Musculoskeletal Musculoskeletal: Reports system reviewed and no additional complaints, except as documented Integumentary/Breasts Skin/Breast: Reports system reviewed and no additional complaints, except as documented *Neurologic Neurologic: Reports system reviewed and no additional complaints, except as documented Psychiatric Psychiatric: Reports system reviewed and no additional complaints, except as documented Endocrine Endocrine: Reports system reviewed and no additional complaints, except as documented and Reports palpitations Hematologic/Lymphatic Hematologic/Lymphatic: Reports system reviewed and no additional complaints, except as documented Allergic/Immunologic Allergic/Immunologic: Reports system reviewed and no additional complaints, except as documented Exam Data for Last 24 hours Vital signs and Labs for Last 24 Hours: Temp Pulse Resp BP Pulse Ox O2 Del Method 98.0 F 165 H 18 106/69 L 98 Room Air 10/13/24 11:56 10/13/24 11:56 10/13/24 11:56 10/13/24 11:56 10/13/24 11:56 10/13/24 11:56 Laboratory Results - last 24 hr 10/13/24 12:07: WBC 10.8, RBC 4.35, Hgb 14.0, Hct 43.1, MCV 99.1 H, MCH 32.2 H, MCHC 32.5, RDW 13.6, Plt Count 200, MPV 10.7 H, Neut % (Auto) 68.6, Lymph % (Auto) 18.1, [place] % (Auto) 8.9, Eos % (Auto) 2.8, Baso % (Auto) 1.0, Neut # (Auto) 7.4, Lymph # (Auto) 2.0, [place] # (Auto) 1.0, Eos # (Auto) 0.3, Baso # (Auto) 0.1, PT 11.5, INR 1.03, Sodium 137, Potassium 4.2, Chloride 102, Carbon Dioxide 26, Anion Gap 13.2, BUN 27 H, Creatinine 1.20 H, Estimated Creat Clear 50, Estimated GFR 44 L, Est GFR ( Amer) 54 L, Glucose 158 H, Calcium 9.2, Total Bilirubin 1.0, AST 52 H, ALT 59, Alkaline Phosphatase 192 H, Total Protein 7.1, Albumin 4.5, Globulin 2.6, Albumin/Globulin Ratio 1.7 I & O for Last 24 hours: Intake & Output 10/10/24 10/11/24 10/12/24 10/13/24 23:59 23:59 23:59 23:59 Weight 160 lb Constitutional Constitutional: no acute distress and average body habitus *Routine HEENT Exam Head: Present normocephalic and atraumatic ENT: Present mucous membranes moist *Routine Neck Exam Neck: Present supple, full ROM and normal carotid upstroke; Absent JVD, carotid bruit or lymphadenopathy *Routine Respiratory Exam Respiratory: Present CTA bilaterally, normal respiratory effort, able to speak in complete sentences and symmetric chest movement *Routine Cardiovascular Exam Cardiovascular: Present RRR, Normal S1 and Normal S2; Absent murmur or gallop *Routine Abdominal Exam Abdominal: Present soft and normoactive bowel sounds; Absent tenderness, distended or organomegaly *Routine Extremities Exam Extremities: Present full ROM, pulses intact and normal capillary refill; Absent cyanosis, clubbing or edema *Routine Skin Exam Skin: Present intact and warm; Absent erythema *Routine Neurological Exam Neurological: Present alert, oriented X3 and CN II-XII intact; Absent sensory deficit or motor deficit Routine Psychiatric Exam Psychiatric: Present normal affect Meds Home Medications and Allergies Home Medications ?Medication ?Instructions ?Recorded ?Confirmed ?Type atorvastatin 40 mg tablet 40 mg PO HS Cholesterol 04/14/18 07/22/24 History levothyroxine 75 mcg tablet 75 mcg PO DAILY thyroid 02/26/22 07/22/24 History (Euthyrox) warfarin 5 mg tablet 5 mg PO SUTUTHSA Blood thinner, 04/20/23 07/22/24 History Afib estradiol 0.045 mg-levonorgestrel 1 patch transdermal WEEKLY HORMONE 08/30/23 07/22/24 Rx 0.015 mg/24hr weekly transderm PATCH #12 ea patch (Climara Pro) azithromycin 250 mg tablet 250 mg PO UD DOSE PK #6 tabs 07/22/24 Rx (Zithromax) benzonatate 100 mg capsule 100 mg PO TIDP PRN Cough #30 caps 07/22/24 Rx dofetilide 250 mcg capsule 250 mcg PO DAILY 07/22/24 07/22/24 History estradiol 0.045 mg-levonorgestrel 0.045 patch transdermal DIRECTED 07/22/24 07/22/24 History 0.015 mg/24hr weekly transderm patch (Climara Pro) fluoxetine 10 mg capsule 10 mg PO DAILY 07/22/24 07/22/24 History methylprednisolone 4 mg tablets in 4 mg PO DIRECTED 6 days #21 tabs 07/22/24 Rx a dose pack metoprolol tartrate 50 mg tablet 50 mg PO DAILY 07/22/24 07/22/24 History New Prescriptions to Start Prescriptions: Allergies Allergy/AdvReac Type Severity Reaction Status Date / Time No Known Allergies Allergy Verified 04/29/23 06:59 Assessment and Plan *Assessment and plan (1) SVT (supraventricular tachycardia): Status: Acute Category: Medical Code(s): I47.10 - Supraventricular tachycardia, unspecified (2) Atrial fibrillation: Status: Acute Qualifiers: Atrial fibrillation type: paroxysmal Qualified Code(s): I48.0 - Paroxysmal atrial fibrillation Category: Medical Code(s): I48.91 - Unspecified atrial fibrillation (3) Pacemaker: Status: Acute Category: Medical Code(s): Z95.0 - Presence of cardiac pacemaker (4) Hyperlipidemia: Status: Acute Qualifiers: Hyperlipidemia type: mixed hyperlipidemia Qualified Code(s): E78.2 - Mixed hyperlipidemia Category: Medical Code(s): E78.5 - Hyperlipidemia, unspecified Plan Plan: 1. The patient presented to the emergency department was found to be in SVT. She did get adenosine 6 mg followed by 12 mg dose without converting her rhythm. She was then subsequently underwent synchronized cardioversion and converted to atrial pacing with PACs. She is now atrial pacing at a rate of 70 bpm with no ectopy noted. 2. The patient takes metoprolol at home. I did talk to the patient about increasing her dose of metoprolol to suppress her atrial ectopy. The patient states that she has been tried on higher doses of metoprolol multiple times in the past and she cannot tolerate this. She would rather not increase the metoprolol at this time. She states that she does take extra doses as needed if she feels her heart racing. She is going to call her primary hand suture winder at [facility] and discuss this with them as well. This is reasonable. 3. The patient did have resolution of her chest pain once she was cardioverted back to a paced rhythm. We are currently awaiting troponins. It is expected that she will have a slight elevation in her troponin due to her SVT and cardioversion. 4. She was hypotensive on presentation. She was given a fluid bolus. Her blood pressure is now controlled. 5. Her LDL goal is less than 100. 6. The patient would benefit from an ischemic evaluation on an outpatient basis due to her underlying abnormal EKG, but not significantly changed from baseline. No plans for left cardiac catheterization at this time as her symptoms resolved once she was converted from SVT. 7. No further recommendations at this time from a cardiac standpoint (unless her troponin is significantly elevated). Thank you for the opportunity to help participate in the care of this patient. All recommendations and orders are per .
[2024-10-13 13:31] LABS: NT Pro Brain Natriuretic Pep. 2130 pg/mL (0-125)
[2024-10-13 13:34] LABS: Troponin I < 0.01 ng/ml (0.00-0.034)
[2024-10-13 14:05] LABS: HIV Combo NEGATIVE (Negative)
[2024-10-13 14:13] LABS: Hepatitis C Ab Qual. W/ RFX NEGATIVE (Negative)
[2024-10-13] MEDS: MAGNESIUM SULFATE IN WATER 2 GM/50 ML PIGGYBACK IV (14:15)
[2024-10-13 14:16] LABS: Free T4 (Free Thyroxine) 1.59 ng/dl (0.78-2.19)
--- NOTE | 2024-10-13 14:49 | PC.NURSE ---
ROUNDED ON PT, FEELING BETTER, NO NEEDS AT THIS TIME. UPDATED ON POC. CALL LIGHT WITHIN REACH. FAMILY AT BEDSIDE
== END 2024-10-13 15:34 | disposition home or self-care (01) ==
PROVIDERS: Emergency Provider Student in an Organized Health Care Education/Training Program; PCP Family Medicine
DX: I47.10 Supraventricular tachycardia, unspecified (principal); I48.0 Paroxysmal atrial fibrillation; Z95.0 Presence of cardiac pacemaker; E78.2 Mixed hyperlipidemia
CPT/HCPCS: 71045; 80053; 83735; 83880; 84439; 84443; 84484; 85025; 85610; 86803; 87389; 93005; 96374; 96375; 99285; J0153; J3475

== ENCOUNTER 2024-11-03 12:55 | Emergency (ER) | payer MEDICARE, SELFPAY ==
[2024-11-03] VITALS (8 sets, daily range): BP systolic 98–119; BP diastolic 52–75; PULSE 66–162; RESP 14–22; TEMP 36.6–36.7; O2SAT 97–100; BMI 27.1
--- NOTE | 2024-11-03 12:57 | ECG_ITS ---
APPROVED REPORT Exam: Resting ECG HR:160 bpm ECG Measurements Heart Rate 160 AXES QRSd 76 QRS 88 QT 283 T 85 QTc 372 Conclusion ATRIAL FLUTTER/TACHYCARDIA WITH RAPID VENTRICULAR RESPONSE SEPTAL MYOCARDIAL INFARCTION , OF INDETERMINATE AGE [40+ ms Q WAVE IN V1/V2] No STEMI Electronically signed by : EMILY TAYLOR, 11/05/2024 00:25:14
--- NOTE | 2024-11-03 13:04 | XR_ITS ---
FINAL REPORT TECHNIQUE: Portable single view chest CLINICAL HISTORY: chest pain, dizziness COMPARISON: 10/13/2024 FINDINGS: PORTABLE CHEST: Mild cardiomegaly is present. Sternotomy wires are present as well as a pacemaker, stable since the prior exam of 10/13/2024. The mediastinum is normal. There is no focal infiltrate or edema. There are no pleural effusions. There is no pneumothorax. There is no osseous abnormality. IMPRESSION: No acute cardiopulmonary process Reviewed, Interpreted and Dictated by Ryan Duran MD Transcribed by Daria Toure Authenticated and [facility]
[2024-11-03] MEDS: dilTIAZem 25MG/5ML VIAL 20 MG IV (13:06)
[2024-11-03] MEDS: LACTATED RINGERS 1000ML 1,000 ML 999 ML IV (13:07)
--- NOTE | 2024-11-03 13:08 | ED_ITS ---
Discharge Plan Disposition Patient Disposition: Home, Self-Care Condition: Fair Prescriptions Prescriptions: No Action atorvastatin 40 mg tablet 40 mg PO HS levothyroxine [Euthyrox] 75 mcg tablet 75 mcg PO DAILY Patient Comments: TAKE 1 TABLET BY MOUTH ONCE DAILY Climara Pro 0.045-0.015 mg/24 hr patch weekly 1 patch transdermal WEEKLY Qty: 12 3RF Rx Instructions: APPLY 1 PATCH TO THE SKIN WEEKLY dofetilide 250 mcg capsule 250 mcg PO DAILY Patient Comments: TAKE 1 CAPSULE BY MOUTH EVERY 12 HOURS metoprolol tartrate 50 mg tablet 50 mg PO DAILY Patient Comments: TAKE 1 & 1/2 (ONE & ONE-HALF) TABLETS BY MOUTH TWICE DAILY fluoxetine 10 mg capsule 10 mg PO DAILY Patient Comments: TAKE 1 CAPSULE BY MOUTH ONCE DAILY Climara Pro 0.045-0.015 mg/24 hr patch weekly 0.045 patch transdermal DIRECTED Patient Comments: APPLY 1 PATCH TO THE SKIN ONCE A WEEK azithromycin [Zithromax] 250 mg tablet 250 mg PO UD DOSE PK Qty: 6 0RF Rx Instructions: Take two (2) tablets today, then one (1) tablet days #2 thru #5 benzonatate 100 mg capsule 100 mg PO TIDP PRN (Reason: Cough) Qty: 30 0RF methylprednisolone 4 mg Tablets,Dose Pack 4 mg PO DIRECTED 6 Days Qty: 21 0RF Rx Instructions: Take 1 pack as directed for 6 days warfarin 5 mg tablet 5 mg PO BENI Referrals Follow up/Referrals: Provider,Referral, [Referring] - See instructions Activity Restrictions/Add. Instructions Additional Instructions/Restrictions: Avoid strenuous activity and caffeine. 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 Return to the emergency department for chest pain, shortness of breath, or fast heart rate. Clinical Impressions Clinical Impression: Atrial fibrillation Qualifiers: Atrial fibrillation type: paroxysmal Qualified Code(s): I48.0 - Paroxysmal atrial fibrillation Instructions Patient Instructions: DI for Atrial Fibrillation, Diltiazem Print Language Print Language: Mongolian Discharge ED Provider: Eryn Borrero General Adult HPI General Chief complaint: Arrhythmia/Palpitations Stated complaint: Chest Pain Time Seen by Provider: 11/03/24 13:08 History of Present Illness HPI narrative: Patient is a 69-year-old with past medical history significant for atrial fibrillation on warfarin status post pacemaker who presents to the emergency department with chest pain shortness of breath and fast beating heart. Patient was evaluated last week in the emergency department for similar complaints and is supposed to follow-up with [facility] cardiology next month on 12/06. Patient was sitting on the couch at 830 this morning and developed lightheadedness, dizziness, and fast heart rate. Related Data Home Medications ?Medication ?Instructions ?Recorded ?Confirmed atorvastatin 40 mg tablet 40 mg PO HS Cholesterol 04/14/18 07/22/24 levothyroxine 75 mcg tablet 75 mcg PO DAILY thyroid 02/26/22 07/22/24 (Euthyrox) warfarin 5 mg tablet 5 mg PO SUTUTHSA Blood thinner, 04/20/23 07/22/24 Afib dofetilide 250 mcg capsule 250 mcg PO DAILY 07/22/24 07/22/24 estradiol 0.045 mg-levonorgestrel 0.045 patch transdermal DIRECTED 07/22/24 07/22/24 0.015 mg/24hr weekly transderm patch (Climara Pro) fluoxetine 10 mg capsule 10 mg PO DAILY 07/22/24 07/22/24 metoprolol tartrate 50 mg tablet 50 mg PO DAILY 07/22/24 07/22/24 Previous Rx's ?Medication ?Instructions ?Recorded estradiol 0.045 mg-levonorgestrel 1 patch transdermal WEEKLY HORMONE 08/30/23 0.015 mg/24hr weekly transderm PATCH #12 ea patch (Climara Pro) azithromycin 250 mg tablet 250 mg PO UD DOSE PK #6 tabs 07/22/24 (Zithromax) benzonatate 100 mg capsule 100 mg PO TIDP PRN Cough #30 caps 07/22/24 methylprednisolone 4 mg tablets in 4 mg PO DIRECTED 6 days #21 tabs 07/22/24 a dose pack Allergies Allergy/AdvReac Type Severity Reaction Status Date / Time No Known Allergies Allergy Verified 04/29/23 06:59 [facility] Disclaimer: The information contained in this section may have been updated after the patient was seen, as this information can be updated by other users. Medical History (Updated 11/03/24 @ 14:56 by Eryn Borrero MD) SVT (supraventricular tachycardia) Macular degeneration of both eyes History of COVID-19 Hypothyroid Allergies Hyperlipidemia History of pacemaker History of anemia Thickened endometrium Postmenopausal bleeding Surgical History Hx of tricuspid valve repair H/O mitral valve replacement Hx of cardiac cath History of tubal ligation History of open heart surgery Family History Other Cancer Social History Smoking Status: Never smoker alcohol intake: never substance use type: denies use current occupational status: retired Travel in the last 8 weeks: None Have you lived/traveled outside US in past 30 days?: No Contact w/someone who lives/traveled outside US past 30 days?: No Exposure to someone with infectious disease in past 14 days?: No Do you have a fever (greater than 100.4 F or 38 C)?: No Have you tested positive for COVID-19: No Exposed to someone with COVID-19 in past 14 days?: No Do you have a sore throat?: No Do you have a cough?: No Do you have any weakness?: No Do you have any diarrhea?: No Are you experiencing any unusual bleeding?: No Do you have any muscle aches/pain?: No Do you have any abdominal pain?: No Are you experiencing loss of taste or smell?: No Other Medical History Have you received the Flu Vaccine for this season: No Have you received the Pneumonia Vaccine: No ROS Obtained: Yes All systems reviewed & no additional complaints except as documented Physical Exam General General appearance: alert and anxious Chest Chest inspection: Present normal inspection Respiratory Respiratory exam: Present normal lung sounds bilaterally; Absent respiratory distress Cardiovascular Cardiovascular exam: Present tachycardia and irregular rhythm Abdominal Exam Abdominal exam: Present soft; Absent distention or tenderness Neurological Exam Neurological exam: Present alert and oriented X3 Skin Skin exam: Present warm and dry Medical Decision Making Medical Records Screening: Per USPSTF and CDC recommendations, given the prevalence of disease in our region, it is our hospital?s policy to screen for HIV and viral Hepatitis for all patients aged 18 and over and those with ongoing risk factors. Lg Inquiry Pt receiving controlled substance: No Vital Signs: 11/03/24 12:55 11/03/24 13:06 11/03/24 13:15 Temperature 97.9 F Temperature Source Oral Pulse Rate 156 H 78 Pulse Rate [Right] 162 H Respiratory Rate 19 14 17 Blood Pressure Blood Pressure [Right Arm] 98/52 L Blood Pressure Mean [Right Arm] 67 Blood Pressure Source Blood Pressure Source [Right Arm] Automatic Cuff 02 Sat by Pulse Oximetry 97 98 98 Oxygen Delivery Method Room Air Nasal Cannula Nasal Cannula Oxygen Flow Rate (LPM) 2 2 11/03/24 13:30 11/03/24 13:45 11/03/24 14:00 Temperature Temperature Source Pulse Rate 67 71 75 Pulse Rate [Right] Respiratory Rate 19 22 16 Blood Pressure 119/69 106/57 L Blood Pressure [Right Arm] Blood Pressure Mean [Right Arm] Blood Pressure Source Blood Pressure Source [Right Arm] 02 Sat by Pulse Oximetry 100 100 98 Oxygen Delivery Method Oxygen Flow Rate (LPM) 11/03/24 14:30 11/03/24 15:12 Temperature 98.0 F Temperature Source Oral Pulse Rate 66 75 Pulse Rate [Right] Respiratory Rate 14 17 Blood Pressure 114/57 L 114/75 Blood Pressure [Right Arm] Blood Pressure Mean [Right Arm] Blood Pressure Source Automatic Cuff Blood Pressure Source [Right Arm] 02 Sat by Pulse Oximetry 99 Oxygen Delivery Method Room Air Oxygen Flow Rate (LPM) Lab Data Lab Results 11/03/24 13:00: WBC 13.0 H, RBC 4.51, Hgb 14.6, Hct 44.3, MCV 98.2, MCH 32.4 H, MCHC 33.0, RDW 12.9, Plt Count 221, MPV 10.4, Neut % (Auto) 73.1, Lymph % (Auto) 16.8, [place] % (Auto) 7.3, Eos % (Auto) 1.9, Baso % (Auto) 0.6, Neut # (Auto) 9.5 H, Lymph # (Auto) 2.2, [place] # (Auto) 1.0, Eos # (Auto) 0.3, Baso # (Auto) 0.1, S odium 134 L, Potassium 4.0, Chloride 98, Carbon Dioxide 26, Anion Gap 14.0, BUN 20 H, Creatinine 1.00, Estimated GFR 55 L, Est GFR ( Amer) 66, Glucose 169 H, Calcium 9.5, Magnesium 2.0, Total Bilirubin 0.9, AST 51 H, ALT 51, Alkaline Phosphatase 119, Troponin I < 0.01, NT-Pro-B Natriuret Pep 4130 H, Total Protein 7.1, Albumin 4.5, Globulin 2.6, Albumin/Globulin Ratio 1.7 11/03/24 13:00 11/03/24 13:00 Orders (Tests/Meds): ED MEDICATIONS Discontinued Medications Generic Name Dose Route Start Last Admin Trade Name Víctorq PRN Reason Stop Dose Admin Diltiazem HCl 20 mg 11/03/24 13:04 11/03/24 13:06 Diltiazem 25mg/5ml Vial IV 11/03/24 13:05 20 mg ONCE ONE Administration Lactated Ringer's 1,000 mls @ 999 mls/hr 11/03/24 13:04 11/03/24 13:07 Lactated Ringer's 1000 Ml Bag IV 11/03/24 14:04 999 mls/hr .Q1H1M ONE Administration ORDERS Category Date Time Status XR chest portable Stat Exams 11/03/24 13:04 Completed Complete Blood Count Auto Diff Stat Lab 11/03/24 13:00 Completed Comprehensive Metabolic Panel Stat Lab 11/03/24 13:00 Completed Magnesium Stat Lab 11/03/24 13:00 Completed NT Pro Brain Natriuretic Pep. Stat Lab 11/03/24 13:00 Completed Troponin I Q3H Lab 11/03/24 13:00 Completed Medical Decision Narrative: In summary, this 69-year-old female presents to the emergency department today with fast heart rate. On initial evaluation patient is borderline hypotensive in A-fib RVR normal mental status saturating appropriately on room air. Differential diagnosis includes but is not limited to A-fib RVR, ACS, electrolyte derangement including hypokalemia hypomagnesemia. Based on these concerns, I ordered CBC CMP troponin BNP EKG magnesium. ECG personally interpreted demonstrates atrial fibrillation with rapid ventricular response, no ST elevation ST depression or T wave inversions concerning for ischemia. Patient received 20 mg of diltiazem for treatment. Patient's rate improved to atrial fibrillation with rate 70-80. Labs personally reviewed demonstrate no anemia, elevated BNP normal calcium and magnesium. XR personally interpreted demonstrates no focal consolidation. I had an interactive discussion with patient and family and recommended admission to the hospital for further workup as this is now the second time this month patient has had arrhythmogenic pathology. Patient declined at this time wanting to follow-up with her engine lathe set up operator at [facility]. On reassessment patient hemodynamically stable. Patient amenable to discharge with outpatient follow-up with her [facility] engine lathe set up operator. Critical Care Critical Care Time Critical Care Time: No
[2024-11-03 13:09] LABS: Basophils # 0.1 K/mm3 (0-0.2); Basophils % 0.6 % (0.1-2.0); Eosinophils # 0.3 K/mm3 (0.0-0.4); Eosinophils % 1.9 % (0.1-12.0); Hematocrit 44.3 % (37.0-47.0); Hemoglobin 14.6 g/dL (12.2-16.2); Lymphocytes # 2.2 K/mm3 (0.7-4.5); Lymphocytes % 16.8 % (10-50); Mean Corpuscular Hemoglobin 32.4 pg (27.0-31.2); Mean Corpuscular Volume 98.2 fl (81-99); Mean Platelet Volume 10.4 fl (7.4-10.4); Monocytes % 7.3 % (1.7-9.3); Neutrophils # 9.5 K/mm3 (1.8-7.8); Neutrophils % 73.1 % (37.0-80.0); Platelet Count 221 K/mm3 (142-424); Red Blood Count 4.51 M/mm3 (4.20-5.40); Red Cell Distribution Width 12.9 % (11.5-17.5)
--- NOTE | 2024-11-03 13:10 | ECG_ITS ---
APPROVED REPORT Exam: Resting ECG HR:80 bpm ECG Measurements Heart Rate 80 AXES QRSd 84 QRS 86 QT 373 T 81 QTc 409 Conclusion ATRIAL FIBRILLATION POSSIBLE RIGHT VENTRICULAR CONDUCTION DELAY [RSR (QR) IN V1/V2] SEPTAL MYOCARDIAL INFARCTION , OF INDETERMINATE AGE [40+ ms Q WAVE IN V1/V2] ABNORMAL ECG No STEMI Electronically signed by : EMILY TAYLOR, 11/05/2024 00:21:26
[2024-11-03 13:19] LABS: Alanine Aminotransferase 51 U/L (12-78); Albumin Level 4.5 g/dl (3.5-5.0); Albumin/Globulin Ratio 1.7 (1.1-1.8); Alkaline Phosphatase 119 U/L (38-126); Aspartate Amino Transferase 51 U/L (14-36); Bilirubin,Total 0.9 mg/dl (0.2-1.3); Blood Urea Nitrogen 20 mg/dl (7-17); Calcium 9.5 mg/dl (8.4-10.2); Carbon Dioxide 26 mmol/L (22.0-30.0); Chloride 98 mmol/L (98-107); Estimated Glomerular Filt Rate 55 ml/min (>60); GFR (African American) 66 ML/MIN (>60); Globulin 2.6 g/dL (1.3-3.2); Glucose 169 mg/dl (74-100); Sodium 134 mmol/L (136-145); Total Protein,Serum 7.1 g/dl (6.3-8.2)
[2024-11-03 13:30] LABS: NT Pro Brain Natriuretic Pep. 4130 pg/mL (0-125)
[2024-11-03 13:39] LABS: Troponin I < 0.01 ng/ml (0.00-0.034)
== END 2024-11-03 15:13 | disposition home or self-care (01) ==
PROVIDERS: Emergency Provider Student in an Organized Health Care Education/Training Program; PCP Family Medicine
DX: I48.0 Paroxysmal atrial fibrillation (principal); R07.9 Chest pain, unspecified; R06.02 Shortness of breath; R00.0 Tachycardia, unspecified; R42 Dizziness and giddiness; Z79.01 Long term (current) use of anticoagulants; Z95.0 Presence of cardiac pacemaker
CPT/HCPCS: 71045; 80053; 83735; 83880; 84484; 85025; 93005; 96360; 96361; 96374; 99284; J7120

== ENCOUNTER 2025-01-15 08:47 | Outpatient (CLI) | payer MEDICARE, SELFPAY ==
--- OUTSIDE RECORDS SUMMARY | 2024-11-09 10:30 | XMS_ITS ---
Author Organization [facility] Address [address] [place] [phone] Care Team Providers Care Supervisor Inspection Room Name Role Phone Kelsi Bradshaw Primary Care Provider JD SOSA Unavailable Allergies No Known Allergies REASON FOR VISIT med checkup, discuss fluoxetine increase Medications Medication SIG (Take, Route, Frequency, Duration) Notes Start Date End Date Status Atorvastatin Calcium 40 MG 1 tablet orally daily for 90 days Active Aspirin 81 81 MG 1 tablet Orally Once a day for 30 day(s) Active Eliquis 5 MG 1 tab(s) Orally Two times a day Active Levothyroxine Sodium 75 MCG 1 tablet in the morning on an empty stomach Orally Once a day Active Metoprolol Tartrate 100 MG 1 tablet with food Orally Twice a day Active FLUoxetine HCl 20 MG 1 capsule Orally On ce a day Active Dofetilide 250 MCG 1 capsule Orally Twi ce a day Not-Taking Flonase Allergy Relief 50 MCG/ACT 1 spray(s) intranasally once a day for 60 Active Ocuvite Extra - 1 tab(s) orally once a day Active Estradiol-Levonorgestrel 0.045-0.015 MG/DAY 1 PATCH applied topically once a week for 4 week(s) Active Vital Signs Blood pressure systolic 120 mm Hg 11/10/19 25 Blood pressure diastolic 80 mm Hg 025 Heart Rate 90 /min 11/09/2024 Height 66.50 in 11/09/2024 Weight 161.2 lbs 11/09/2024 BMI 25.63 kg/m2 11/09/2024 Encounters Encounter Location Date Provider [facility] [address] [place] [phone] 11/09/2024 Kelsi Bradshaw Anxiety disorder F41.9 and Chronic cough R05.3 Assessments Encounter Date Diagnosis (ICD Code) Assessment Notes Treatment Notes Treatment Clinical Notes Section Notes 11/09/2024 Anxiety disorder (ICD-10 - F41.9) 11/09/2024 Chronic cough (ICD-10 - R05.3) Plan Of Treatment Medication Medication Name Sig Start Date Stop Date Notes Atorvastatin Calcium 40 MG 1 tablet oral ly daily for 90 days Levothyroxine Sodium 75 MCG 1 tablet in the morning on an empty stomach Orally Once a day FLUoxetine HCl 20 MG 1 capsule Orally Once a day Next Appt Details Follow Up: 6 Months, Reason: Progress Notes * Doretha HAILEOB:1955 ([age] yo F)Acc No.[id number]:11/09/2024 Progress Notes Patient: Joslyn BANDA Provider: Kelsi Bradshaw M.D. :1955 A ge:69 Y S ex:Female Date:11/09/2024 Address:[address] [place], [place] [address], [id number] Subjective: * Chief Complaints: * 1 . Med checkup, discuss fluoxetine increase. * HPI: P sychology: She has been having some increased health issues mostly related to her chronic A-fib which has required several recent ER visits and is anticipating starting back on Tikosyn. Her process assistant thinks she might benefit from increasing her fluoxetine as well. E NT/respiratory: She has persisted with a dry spasmodic cough since having COVID 3 or 4 months ago. She has had several chest x-rays with her recent ER visits, all of which have been reported as normal. No hemoptysis or pleuritic chest pain. * ROS: D ERMATOLOGY: no R carlo. n o H rodrigo. G ASTROENTEROLOGY: no N ausea. n o V omiting. n o D iarrhea.? U ROLOGY: no D ifficulty urinating. n o B lood in urine. * Medical History: F rozen shoulders, Lone Atrial Fib - 03/2013/ Dr. 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 * Surgical History: t ubal 1981, permanent pacemaker placed 02/24/17, Heart Cath 10/27/22, MV replacement (MAZE procedure),TV repair, and left atrial appendage ligation/ [facility] 01/11/2023, Hysteroscopy 03/2023, Cataract Surgery Bilateral 06/2023. * Hospitalization/Major Diagno stic Procedure: S t [facility]-A-fib 03/19/13, [facility] ER-heart out of rhythmn 04/03/13, [facility] ER-UTI 07/04/13, Clinic-Bronchitis, ear infection, sinusitis 06/23, [facility], Bradycardia-tachycardia syndrome, mild CHF, Mild mitral valve stenosis 02/24/17, [facility] - A-Fib 01/2024. * Family History: F ather: , pancreatic cancer. M other: alive. 2 brother(s) , 2 sister(s) . 3 daughter(s) . . 1 brother from brain cancer at age 24. * Social History: C URRENT TOBACCO USE S moking Status: Patient does NOT smoke. C affeine: yes, frequency:. Home smoke detector use: no. Past smoking status: no. Alcohol: none. * Medications: T aking Eliquis 5 MG Tablet 1 tab(s) Orally Two times a day , Taking Aspirin 81 81 MG Tablet Delayed Release 1 tablet Orally Once a day , Taking Estradiol- Levonorgestrel 0.045-0.015 MG/DAY Patch Weekly 1 PATCH applied topically once a week , Taking Ocuvite Extra - Tablet 1 tab(s) orally once a day , Taking Flonase Allergy Relief 50 MCG/ACT Suspension 1 spray(s) intranasally once a day , Taking Metoprolol Tartrate 100 MG Tablet 1 tablet with food Orally Twice a day , Taking Atorvastatin Calcium 40 MG Tablet 1 tablet orally daily , Taking FLUoxetine HCl 10 MG Capsule 1 capsule Orally Once a day , Taking Levothyroxine Sodium 75 MCG Tablet 1 tablet in the morning on an empty stomach Orally Once a day , Not-Taking Dofetilide 250 MCG Capsule 1 capsule Orally Twice a day , Discontinued Medrol 4 MG Tablet 1 tablet with food or milk Orally every 12 hrs , Discontinued Benzonatate 200 MG Capsule 1 cap(s) Orally Three times a day prn , Medication List reviewed and reconciled with the patient * Allergies: N .K.D.A. Objective: * Vitals: W t: 161.2, Temp: 98.6, BP: 120/80, HR: 90, Nurse: VERITO, Ht: 66.50, BMI:25.63. Assessment: * Assessment: 1. A nxiety disorder - F41.9 (Primary) 2 . C hronic cough - R05.3 ? Plan: * Treatment: 2. O thers Refill Levothyroxine Sodium Tablet, 75 MCG, 1 tablet in the morning on an empty stomach, Orally, Once a day, 90, Refills 1; R efill Atorvastatin Calcium Tablet, 40 MG, 1 tablet, orally, daily, 90 days, 90 Tablet, Refills 1. * Procedure Codes: G 2211 Complex e/m visit add on, 3074F SYST BP LT 130 MM HG, 3079F DIAST BP 80-89 MM HG * Follow Up: 6 Months * Billing Information: * Visit Code: 82933 Office Visit, Est Pt., Level 3. * Procedure Codes: G2211 Complex e/m visit add on. 3074F SYST BP LT 130 MM HG. 3079F DIAST BP 80-89 MM HG. * Electronic signature of Kelsi Bradshaw MD on 01/15/2025 at 08:50 AM EDT Sign off status: Pending * Provider: Kelsi Bradshaw M.D. Date: 0 11/09/2024 Generated for Monique de la o/[employer]/Pepper on: 0 01/15/2025 08:50 AM EDT
--- OUTSIDE RECORDS SUMMARY | 2025-01-04 10:45 | XMS_ITS ---
Author Organization [facility] Address [address] [place] [phone] Care Team Providers Care Trolley Operator Name Role Phone Kelsi Bradshaw Primary Care Provider [phone] JD SOSA Unavailable Unavailable Jennifer Dunbar Unavailable [phone] Allergies No Known Allergies Results Component Value Reference Range Notes CBC Fingerstick (in house) Reviewed date:01/05/2025 12:35:51 AM Interpretation: Performing Lab: Notes/Report: wbc 9.7 3.5 - 10 lym 16.9 15 - 50 mid 4.7 2 - 15 gran 78.4 35 - 80 rbc 4.63 3.5 - 5.5 hgb 14.6 11.5 - 16.5 hct 44.8 35 - 55 mcv 96.9 75 - 100 mch 31.5 25 - 35 mchc 32.5 31 - 38 plat 167 100 - 400 REASON FOR VISIT earache, swollen ankles Medications Medication SIG (Take, Route, Frequency, Duration) Notes Start Date End Date Status Levothyroxine Sodium 75 MCG 1 tablet in the morning on an empty stomach Orally Once a day Active Atorvastatin Calcium 40 MG 1 tablet orally daily for 90 days Active Dofetilide 250 MCG 1 capsule Orally Twi ce a day Not-Taking Metoprolol Tartrate 100 MG 1 tablet with food Orally Twice a day Active FLUoxetine HCl 20 MG 1 capsule Orally On ce a day Active Flonase Allergy Relief 50 MCG/ACT 1 spray(s) intranasally once a day for 60 Active Eliquis 5 MG 1 tab(s) Orally Two times a day Active Aspirin 81 81 MG 1 tablet Orally Once a day for 30 day(s) Active Estradiol-Levonorgestrel 0.045-0.015 MG/DAY 1 PATCH applied topically once a week for 4 week(s) Active Ocuvite Extra - 1 tab(s) orally once a day Active dilTIAZem HCl 100 MG as directed Intravenous Active Vital Signs Blood pressure systolic 90 mm Hg 01/05/20 25 Blood pressure diastolic 60 mm Hg 025 Heart Rate 88 /min 01/04/2025 Height 66.50 in 01/04/2025 Weight 164.8 lbs 01/04/2025 BMI 26.2 kg/m2 01/04/2025 Encounters Encounter Location Date Provider Diagnosis [facility] [address] [place], [place] [phone] 01/04/2025 Jennifer Dunbar Chronic cough R05.3 ; Bilateral impacted cerumen H61.23 ; Leg swelling M79.89 ; Paroxysmal atrial fibrillation I48.0 ; Acquired hypothyroidism E03.9 ; Dyslipidemia E78.5 and BMI 26.0-26.9,adult Z68.26 Assessments Encounter Date Diagnosis (ICD Code) Assessment Notes Treatment Notes Treatment Clinical Notes Section Notes 01/04/2025 Chronic cough (ICD-10 - R05.3) Has cough medication at home. 01/04/2025 Bilateral impacted cerumen (ICD-10 - H61.23) Will soak and f/u for repeat ear irrigation. 01/04/2025 Leg swelling (ICD-10 - M79.89) This is likely due to her cardizem as this did not happen until she started taking it. She will contact her shotblast equipment operator. 01/04/2025 Paroxysmal atrial fibrillation (ICD-10 - I48.0) 01/04/2025 Acquired hypothyroidism (ICD-10 - E03.9) 01/04/2025 Dyslipidemia (ICD-10 - E78.5) 01/04/2025 BMI 26.0-26.9,adult (ICD-10 - Z68.26) Plan Of Treatment Treatment Notes Assessment Notes Chronic cough Has cough medication at home. Bilateral impacted cerumen Will soak and f/u for repeat ear irrigation. Leg swelling This is likely due t o her cardizem as this did not happen until she started taking it. She will contact her shotblast equipment operator. Next Appt Details Follow Up: 1 Week, Reason: Progress Notes * Doretha HAILEOB:1955 (6 0 yo F)Acc No.[id number]:01/04/2025 Progress Notes Patient: Joslyn BANDA Provider: KIM Walsh :1955 A ge:69 Y S ex:Female Date:01/04/2025 Address:[address] [place] [address] [place], [id number] Pcp:Kelsi Bradshaw Subjective: * Chief Complaints: * 1 . Earache, swollen ankles. * HPI: E NT/respiratory: 69 year old female presents with c/o cough. c/o ear pain?Pt sts she has c/o left ear pain for 3 weeks and sts it has not gotten any better. A nkle/Foot: c/o Swelling P t sts her ankles are swollen. Pt sts her ankles have been swollen for 4-5 weeks. Pt sts she is unsure if is due to one of her medications or not. * ROS: D ERMATOLOGY: no R carlo. n o H rodrigo. G ASTROENTEROLOGY: no N ausea. n o V omiting. n o D iarrhea.? U ROLOGY: no D ifficulty urinating. n o B lood in urine. * Medical History: F rozen shoulders, Lone Atrial Fib - 03/2013/ Dr. 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 * Surgical History: t ubal 1981, permanent pacemaker placed 02/24/17, Heart Cath 10/27/22, MV replacement (MAZE procedure),TV repair, and left atrial appendage ligation/ [facility] 01/11/2023, Hysteroscopy 03/2023, Cataract Surgery Bilateral 06/2023. * Hospitalization/Major Diagno stic Procedure: [facility]-A-fib 03/19/13, [facility] ER-heart out of rhythmn 04/03/13, [facility] ER-UTI 07/04/13, Clinic-Bronchitis, ear infection, sinusitis 06/23, [facility], Bradycardia-tachycardia syndrome, mild CHF, Mild mitral valve stenosis 02/24/17, [facility] - A-Fib 01/2024. * Family History: [...] no. Alcohol: none. * Medications: T aking dilTIAZem HCl 100 MG Solution Reconstituted as directed Intravenous , Taking Eliquis 5 MG Tablet 1 tab(s) Orally Two times a day , Taking Aspirin 81 81 MG Tablet Delayed Release 1 tablet Orally Once a day , Taking Estradiol-Levonorgestrel 0.045-0.015 MG/DAY Patch Weekly 1 PATCH applied topically once a week , Taking Ocuvite Extra - Tablet 1 tab(s) orally once a day , Taking Flonase Allergy Relief 50 MCG/ACT Suspension 1 spray(s) intranasally once a day , Taking Metoprolol Tartrate 100 MG Tablet 1 tablet with food Orally Twice a day , Taking FLUoxetine HCl 20 MG Capsule 1 capsule Orally Once a day , Taking Levothyroxine Sodium 75 MCG Tablet 1 tablet in the morning on an empty stomach Orally Once a day , Taking Atorvastatin Calcium 40 MG Tablet 1 tablet orally daily , Not-Taking Dofetilide 250 MCG Capsule 1 capsule Orally Twice a day , Medication List reviewed and reconciled with the patient * Allergies: N .K.D.A. Objective: * Vitals: W t: 164.8, Temp: 98.7, BP: 90/60, HR: 88, Nurse: [facility], Ht: 66.50, BMI:26.2. * Examination: G eneral Examination: General Appearance: N AD. HEENT: u nremarkable , sclera and conjunctiva clear, PERRLA, cerumen in bilateral canals, even after irrigation there is still cerumen, TM's normal, translucent. Oral cavity: n o lesions, mucosa moist and WNL, no erythema. Neck: s upple, no lymphadenopathy. Chest: n ormal shape and expansion. Heart: R SR. Lungs: c lear to auscultation. Abdomen: s oft , nontender. Neurologic Exam: I ntact, gait normal. Skin: n ormal, no rash. Peripheral pulses: n ormal (2+) bilaterally. Extremities: t race leg edema bilaterally. Assessment: * Assessment: 1. C hronic cough - R05.3 (Primary) 2 . B ilateral impacted cerumen - H61.23 3 . L eg swelling - M79.89 4 . P aroxysmal atrial fibrillation - I48.0 5 . A cquired hypothyroidism - E03.9 6 . D yslipidemia - E78.5 7 . B WI 26.0-26.9,adult - Z68.26 Plan: * Treatment: Value Reference Range w bc 9.7 3.5 - 10 * l ym 16.9 15 - 50 * m id 4.7 2 - 15 * g ran 78.4 35 - 80 * r bc 4.63 3.5 - 5.5 * h gb 14.6 11.5 - 16.5 * h ct 44.8 35 - 55 * m cv 96.9 75 - 100 * m ch 31.5 25 - 35 * m chc 32.5 31 - 38 * p lat 167 100 - 400 * Gabriela Romero 01/04/2025 03:2 4:29 PM > Provider reviewed results while patient in office. Notes: Has cough medication at home.??2.?Bilateral impacted cerumen? Notes: Will soak and f/u for repeat ear irrigation.??3.?Leg swelling? Notes: This is likely due to her cardizem as this did not happen until she started taking it. She will contact her shotblast equipment operator.?? * Procedure Codes: G 2211 Complex e/[place], [address] CAPILLARY BLOOD DRAW, 17051 CBC WITH AUTO DIFF, 59531 EAR IRRIGATION, G8420 BMI<30 AND >=22 CALC & DOCU, G8783 BP SCR PRFRM RCMDD DEFIND SCR INTVL, G8752 MOST RECENT SYSTOLIC BP < 140MM HG, G8754 MOST RECENT DIASTOLIC BP < 90MM HG * Follow Up: 1 Week * Billing Information: * Visit Code: 60886 Office Visit, Est Pt., Level 4. Modifiers: 25 * Procedure Codes: G2211 Complex e/[place]. [address] CAPILLARY BLOOD DRAW. 11670 CBC WITH AUTO DIFF. 17689 EAR IRRIGATION. G8420 BMI<30 AND >=22 CALC & DOCU. G8783 BP SCR PRFRM RCMDD DEFIND SCR INTVL. G8752 MOST RECENT SYSTOLIC BP < 140MM HG. G8754 MOST RECENT DIASTOLIC BP < 90MM HG. * Electronic signature of KIM Floyd on 01/15/2025 at 08:51 AM EDT Sign off status: Pending * Provider: KIM Walsh Date: 0 01/04/2025 Generated for Printi ng/Faxing/eTransmitting on: 0 01/15/2025 08:51 AM EDT History and Physical Notes * HPI (History of Present Illness) Category Sub-Category Detail Notes Category Not es ENT/respiratory ear pain Pt sts she has c /o left ear pain for 3 weeks and sts it has not gotten any better cough Ankle/Foot Swelling Pt sts her ankle s are swollen. Pt sts her ankles have been swollen for 4-5 weeks. Pt sts she is unsure if is due to one of her medications or not Examination Category Sub-Category Detail Notes Category Not es General Examination HEENT: unremarkable , sclera and conjunctiva clear, PERRLA, cerumen in bilateral canals, even after irrigation there is still cerumen, TM's normal, translucent Heart: RSR Lungs: clear to auscultatio n Abdomen: soft , nontender Extremities: trace leg edema bila terally General Appearance: NAD Skin: normal, no rash Neurologic Exam: Intact, gait normal Neck: supple, no lymphaden opathy Oral cavity: no lesions, mucosa m oist and WNL, no erythema Peripheral pulses: normal (2+) bilatera lly Chest: normal shape and exp ansion
--- OUTSIDE RECORDS SUMMARY | 2025-01-11 06:45 | XMS_ITS ---
[facility] Address [address] [place] [phone] Care Team Providers Care Financial Dealers Name Role Phone Kelsi Bradshaw Primary Care Provider JD SOSA Unavailable Allergies No Known Allergies REASON FOR VISIT ears flush Medications Medication SIG (Take, Route, Frequency, Duration) Notes Start Date End Date Status FLUoxetine HCl 20 MG 1 capsule Orally On ce a day Active Levothyroxine Sodium 75 MCG 1 tablet in the morning on an empty stomach Orally Once a day Active Metoprolol Tartrate 100 MG 1 tablet with food Orally Twice a day Active Atorvastatin Calcium 40 MG 1 tablet orally daily for 90 days Active Dofetilide 250 MCG 1 capsule Orally Twi ce a day Not-Taking Flonase Allergy Relief 50 MCG/ACT 1 spray(s) intranasally once a day for 60 Active Estradiol-Levonorgestrel 0.045-0.015 MG/DAY 1 PATCH applied topically once a week for 4 week(s) Active Ocuvite Extra - 1 tab(s) orally once a day Active Eliquis 5 MG 1 tab(s) Orally Two times a day Active Aspirin 81 81 MG 1 tablet Orally Once a day for 30 day(s) Active dilTIAZem HCl 100 MG as directed Intravenous Active Vital Signs Blood pressure systolic 100 mm Hg 01/12/20 25 Blood pressure diastolic 60 mm Hg 025 Heart Rate 81 /min 01/11/2025 Height 66.50 in 01/11/2025 Weight 163.8 lbs 01/11/2025 BMI 26.04 kg/m2 01/11/2025 Encounters Encounter Location Date Provider Diagnosis [facility] [address] [place] [phone] 01/11/2025 Kelsi Siegel [place] Bilateral impacted cerumen H61.23 Assessments Encounter Date Diagnosis (ICD Code) Assessment Notes Treatment Notes Treatment Clinical Notes Section Notes 01/11/2025 Bilateral impacted cerumen (ICD-10 - H61.23) Ears are irrigated free of wax today. Plan Of Treatment Treatment Notes Assessment Notes Bilateral impacted cerumen Ears are irri gated free of wax today. Next Appt Details Follow Up: prn, Reason: Progress Notes * Doretha HAILEOB:1955 (6 0 yo F)Acc No.[id number]:01/11/2025 Progress Notes Patient: Joslyn BANDA Provider: Kelsi Bradshaw M.D. :1955 A ge:69 Y S ex:Female Date:01/11/2025 Address:[address] [place], [place] [address], [id number] Subjective: * Chief Complaints: * 1 . Ears flush. * HPI: E NT/respiratory: Patient was seen last week with bilateral cerumen impaction with unsuccessful irrigation. She has been using peroxide daily at home and returns today to have the ears irrigated. She denies pain. 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 * Surgical History: t ubal 1981, permanent pacemaker placed 02/24/17, Heart Cath 10/27/22, MV replacement (MAZE procedure),TV repair, and left atrial appendage ligation/ [facility] 01/11/2023, Hysteroscopy 03/2023, Cataract Surgery Bilateral 06/2023. * Hospitalization/Major Diagno stic Procedure: S t Freddie-A-fib 03/19/13, [facility] ER-heart out of rhythmn 04/03/13, [facility] ER-UTI 07/04/13, Clinic-Bronchitis, ear infection, sinusitis 06/23, [facility], Bradycardia-tachycardia syndrome, mild CHF, Mild mitral valve stenosis 02/24/17, [facility] - A-Fib 01/2024. * Family [...] N .K.D.A. Objective: * Vitals: W t: 163.8, Temp: 98.7, BP: 100/60, HR: 81, Nurse: liat, Ht: 66.50, BMI:26.04. * Examination: G eneral Examination: HEENT: B oth external canals are occluded with wax. The ears are irrigated today and wax is removed. TMs appear normal.. Assessment: * Assessment: 1. B ilateral impacted cerumen - H61.23 (Primary) Plan: * Treatment: * Procedure Codes: 6 9210 EAR IRRIGATION * Follow Up: p rn * Billing Information: * Visit Code: 75504 Office Visit, Est Pt., Level 3. * Procedure Codes: 36179 EAR IRRIGATION. * Electronic signature of Kelsi Bradshaw MD on 01/15/2025 at 08:51 AM EDT Sign off status: Pending * Provider: Kelsi Bradshaw M.D. Date: 0 01/11/2025 Generated for Monique de la o/[employer]/Oniransmitting on: 0 01/15/2025 08:51 AM EDT History and Physical Notes * HPI (History of Present Illness) Category Sub-Category Detail Notes Category Not es ENT/respiratory Patient was seen last week with bilateral cerumen impaction with unsuccessful irrigation. She has been using peroxide daily at home and returns today to have the ears irrigated. She denies pain. Examination Category Sub-Category Detail Notes Category Not es General Examination HEENT: Both externa l canals are occluded with wax. The ears are irrigated today and wax is removed. TMs appear normal.
--- OUTSIDE RECORDS SUMMARY | 2025-01-15 08:50 | XMS_ITS ---
Author Organization Unknown Medications Date Medication Dosage DosageUnit StartDate StopDate StopReason Active DoseQuantity DoseUnit Dispense DispenseUnit Refills NdcCode DrugCode PharmacyId IsPrescription MappedMedication Srcstatus 11/09 00:00 :00 Aspirin 81 81 MG Tablet Delayed Release 1 30 [id number] 650 Taking 08/31 00:00 :00 Aspirin 81 81 MG Tablet Delayed Release 1 30 [id number] 650 Taking 02/02 00:00 :00 Aspirin 81 81 MG Tablet Delayed Release 1 30 [id number] 650 Taking 11/09 00:00 :00 Atorvastati n Calcium 40 MG Tablet 1 90 Tablet 1 [id number] 810 P Unknown Status 11/09 00:00 :00 Atorvastati n Calcium 40 MG Tablet 1 90 Tablet 1 [id number] 810 Taking 08/31 00:00 :00 Atorvastati n Calcium 40 MG Tablet 1 90 Tablet 1 [id number] 810 Taking 04/27 00:00 :00 Atorvastati n Calcium 40 MG Tablet 1 90 Tablet 1 [id number] 810 Start 04/27 00:00 :00 Atorvastati n Calcium 40 MG Tablet 0 90 Tablet 1 [id number] 810 Stop 02/02 00:00 :00 Atorvastati n Calcium 40 MG Tablet 1 90 Tablet 1 [id number] 810 Taking 11/09 00:00 :00 Benzonatate 200 MG Capsule 08/31/2024 00:00:00 0 24 [id number] 3 205 P Discontinu ed 08/31 00:00 :00 Benzonatate 200 MG Capsule 08/31/2024 00:00:00 1 24 [id number] 3 205 P Start 02/02 00:00 :00 Carvedilol 3.125 MG Tablet 0 60 [id number] 101 Discontinu ed 02/02 00:00 :00 Cephalexin 500 MG Tablet 01/07/2023 00:00:00 0 15 [id number] 4 001 P Discontinu ed 11/09 00:00 :00 Dofetilide 250 MCG Capsule 0 009 [id number] 208 Not Taking 08/31 00:00 :00 Dofetilide 250 MCG Capsule 1 009 07977 208 Taking 02/02 00:00 :00 Dofetilide 250 MCG Capsule 1 009 12773 208 Continue 02/02 00:00 :00 Dofetilide 250 MCG Capsule 1 60 009 18357 208 Taking 11/09 00:00 :00 Eliquis 5 MG Tablet 1 [id number] 421 Taking 08/31 00:00 :00 Eliquis 5 MG Tablet 1 [id number] 421 Taking 02/02 00:00 :00 Eliquis 5 MG Tablet 0 [id number] 421 P Discontinu ed 11/09 00:00 :00 Estradiol-L evonorgestr el 0.045-0 .015 MG/DAY Patch Weekly 1 Yeison ing 08/31 00:00 :00 Estradiol-L evonorgestr el 0.045-0 .015 MG/DAY Patch Weekly 1 Yeison ing 02/02 00:00 :00 Estradiol-L evonorgestr el 0.045-0 .015 MG/DAY Patch Weekly 1 Yeison ing 11/09 00:00 :00 Flonase Allergy Relief 50 MCG/ACT Suspension 1 16 1 [id number] 7 602 Taking 08/31 00:00 :00 Flonase Allergy Relief 50 MCG/ACT Suspension 1 16 1 [id number] 7 602 Taking 02/02 00:00 :00 Flonase Allergy Relief 50 MCG/ACT Suspension 1 16 1 [id number] 7 602 Taking 11/09 00:00 :00 FLUoxetine HCl 20 MG Capsule 1 90 1 213397 34 661 P Increase 11/09 00:00 :00 FLUoxetine HCl 10 MG Capsule 1 90 Capsule 0 [id number] 154 P Taking 09/25 00:00 :00 FLUoxetine HCl 10 MG Capsule 1 90 Capsule 0 [id number] 154 P Unknown Status 08/31 00:00 :00 FLUoxetine HCl 10 MG Capsule 1 30 Capsule 0 [id number] 154 Taking 08/15 00:00 :00 FLUoxetine HCl 10 MG Capsule 1 30 Capsule 0 [id number] 154 Start 08/15 00:00 :00 FLUoxetine HCl 10 MG Capsule 0 30 Capsule 0 [id number] 154 Stop 07/14 00:00 :00 FLUoxetine HCl 10 MG Capsule 1 30 Capsule 0 [id number] 154 Start 07/14 00:00 :00 FLUoxetine HCl 10 MG Capsule 0 90 Capsule 1 [id number] 154 Stop 02/02 00:00 :00 FLUoxetine HCl 10 MG Capsule 1 90 Capsule 1 [id number] 154 Taking 01/17 00:00 :00 FLUoxetine HCl 10 MG Capsule 1 90 Capsule 1 [id number] 154 Start 01/17 00:00 :00 FLUoxetine HCl 10 MG Capsule 0 30 Capsule 2 [id number] 154 Stop 11/09 00:00 :00 Levothyroxi ne Sodium 75 MCG Tablet 1 90 1 47 844954 690 P Unknown Status 11/09 00:00 :00 Levothyroxi ne Sodium 75 MCG Tablet 1 30 Tablet 0 [id number] 690 Taking 10/11 00:00 :00 Levothyroxi ne Sodium 75 MCG Tablet 1 30 Tablet 0 [id number] 690 Start 10/11 00:00 :00 Levothyroxi ne Sodium 75 MCG Tablet 0 90 Tablet 1 [id number] 690 Stop 08/31 00:00 :00 Levothyroxi ne Sodium 75 MCG Tablet 1 90 Tablet 1 [id number] 690 Taking 03/27 00:00 :00 Levothyroxi ne Sodium 75 MCG Tablet 1 90 Tablet 1 [id number] 690 Start 03/27 00:00 :00 Levothyroxi ne Sodium 75 MCG Tablet 0 90 Tablet 0 [id number] 690 Stop 02/02 00:00 :00 Levothyroxi ne Sodium 75 MCG Tablet 1 90 Tablet 0 [id number] 690 Taking 11/09 00:00 :00 Medrol 4 MG Tablet 08/31/2024 00:00:00 0 10 [id number] 5 602 P Discontinu ed 08/31 00:00 :00 Medrol 4 MG Tablet 08/31/2024 00:00:00 1 10 [id number] 5 602 P Start 11/09 00:00 :00 Metoprolol Tartrate 100 MG Tablet 1 003 81078 701 Taking 08/31 00:00 :00 Metoprolol Tartrate 75 MG Tablet 1 0037 8459 401 Taking 02/02 00:00 :00 Metoprolol Tartrate 25 MG Tablet 1 0037 8001 801 Continue 02/02 00:00 :00 Metoprolol Tartrate 25 MG Tablet 1 60 0037 8001 801 Taking 02/02 00:00 :00 Mupirocin Calcium 2 % Cream 0 712181 05 501 Discontinu ed 11/09 00:00 :00 Ocuvite Extra - Tablet 1 [id number] 8 819 Taking 08/31 00:00 :00 Ocuvite Extra - Tablet 1 [id number] 8 819 Taking 02/02 00:00 :00 Ocuvite Extra - Tablet 1 [id number] 8 819 Taking 02/02 00:00 :00 predniSONE 10 MG Tablet 01/13/2022 00:00:00 0 15 [id number] 1 720 P Discontinu ed 08/31 00:00 :00 Xarelto Starter Pack 15 & 20 MG Tablet Therapy Pack 0 [id number] 451 Discontinu ed 02/02 00:00 :00 Xarelto Starter Pack 15 & 20 MG Tablet Therapy Pack 1 [id number] 451 Continue 02/02 00:00 :00 Xarelto Starter Pack 15 & 20 MG Tablet Therapy Pack 1 [id number] 451 Taking
--- OUTSIDE RECORDS SUMMARY | 2025-01-15 08:50 | XMS_ITS | Encounter Summary ---
Author Organization [employer] Address [address] [place] [address] Care Team Providers Care Sample Book Maker Name Role Phone Provider Not In System, McT Primary Care Provide r Unavailable Tami Ballard MD Unavailable [phone] Jeyson Aguila MD Unavailable Andreas Bradshaw MD Primary Care Provider [phone] Encounter Details Date Type Department Care Team (Late st Contact Info) Description 04/11/2020 Transcribed Document [facility] [place] Family [facility] [place] [address] ProviderAmisha MD [address] [place] [address] Social History Tobacco Use Types Packs/Day Years Used Date Smoking Tobacco: Never Assessed Comments Unknown Sex and Gender Information Value Date Recorded Sex Assigned at Female 09/04/2022 2:24 PM DESK DIRECTOR Legal Sex Female 4:13 PM CDT Gender Identity Female 09/04/2022 2:24 PM DESK DIRECTOR Sexual Orientation Not on file documented as of this encounter Miscellaneous Notes * Cerner Conversion Note - Historical ProviderMD - 04/11/2020 11:15 AM CDT Event Note Entered On: 04/11/2020 11:35 EDT Performed On: 04/11/2020 11:15 EDT by ROBYN BECKETT RN Event Note Event Date/Time : 04/11/2020 11:15 EDT Event Location : Assigned room Description of Event : Return from procedure lab per stretcher awake and alert, skin w/d, no c/o, spouse here at bedside. Food and drink ordered. ROBYN BECKETT RN - 04/11/2020 11:33 EDT documented in this encounter Plan of Treatment Not on file documented as of this encounter Visit Diagnoses Not on filedocumented in this encounter Care Teams Sample Book Maker Relationship Specialty Start Date End Date Provider Not In System, [facility] PCP - General 06/30/22 08/10/22 Andreas Bradshaw MD [address] [place] [address] PCP - General Family Medicine 08/11/22 Tami Ballard MD [address] [place] [address] [address] Tenant Relations Coordinator Interventional Cardiology 08/11/22 Jeyson Aguila MD [address] [place] [address] [address] Tenant Relations Coordinator Electrophysiology 08/11/22 documented as of this encounter
--- OUTSIDE RECORDS SUMMARY | 2025-01-15 08:50 | XMS_ITS | Encounter Summary ---
Author Organization [id number] Address [address] [place] [address] Care Team Providers Care Ladle Patcher Name Role Phone Provider Not In System, McT Primary Care Provide r Unavailable Tami aBllard MD Unavailable [phone] Jeyson Aguila MD Unavailable Andreas Bradshaw MD Primary Care Provider [phone] Encounter Details Date Type Department Care Team (Late st Contact Info) Description 04/11/2020 Transcribed Document [facility] [place] Family [place] [facility] [place] [address] ProviderAmisha MD [address] [place] [address] Social History Tobacco Use Types Packs/Day Years Used Date Smoking Tobacco: Never Assessed Comments Unknown Sex and Gender Information Value Date Recorded Sex Assigned at Female 09/04/2022 2:24 PM EMPLOYEE BENEFITS ADMINISTRATOR Legal Sex Female 4:13 PM CDT Gender Identity Female 09/04/2022 2:24 PM EMPLOYEE BENEFITS ADMINISTRATOR Sexual Orientation Not on file documented as of this encounter Miscellaneous Notes * Cerner Conversion Note - Amisha ProviderMD - 04/11/2020 11:57 AM CDT Patient Education Materials Follows: Moderate Conscious Sedation, Adult, Care After These instructions provide you with information about caring for yourself after your procedure. Your health care provider may also give you more specific instructions. Your treatment has been planned according to current medical practices, but problems sometimes occur. Call your health care provider if you have any problems or questions after your procedure. What can I expect after the procedure? After your procedure, it is common: ??? To feel sleepy for several hours. ??? To feel clumsy and have poor balance for several hours. ??? To have poor judgment for several hours. ??? To vomit if you eat too soon. Follow these instructions at home: For at least 24 hours after the procedure: ??? Do not: ? Participate in activities where you could fall or become injured. ? Drive. ? Use heavy machinery. ? Drink alcohol. ? Take sleeping pills or medicines that cause drowsiness. ? Make important decisions or sign legal documents. ? Take care of children on your own. ??? Rest. Eating and drinking ??? Follow the diet recommended by your health care provider. ??? If you vomit: ? Drink water, juice, or soup when you can drink without vomiting. ? Make sure you have little or no nausea before eating solid foods. General instructions ??? Have a responsible adult stay with you until you are awake and alert. ??? Take jwms-cjw-tdrhwqo and prescription medicines only as told by your health care provider. ??? If you smoke, do not smoke without supervision. ??? Keep all follow-up visits as told by your health care provider. This is important. Contact a health care provider if: ??? You keep feeling nauseous or you keep vomiting. ??? You feel light-headed. ??? You develop a rash. ??? You have a fever. Get help right away if: ??? You have trouble breathing. This information is not intended to replace advice given to you by your health care provider. Make sure you discuss any questions you have with your health care provider. Document Released: 05/16/2014 Document Revised: 07/08/2018 Document Reviewed: 11/14/2016 Elsevier Patient Education ? 2020 [employer] Transesophageal Echocardiogram Transesophageal echocardiogram (FRANCISCO) is a test that uses sound waves to take pictures of your heart. FRANCISCO is done by passing a flexible tube down the esophagus. The esophagus is the tube that carries food from the throat to the stomach. The pictures give detailed images of your heart. This can help your doctor see if there are problems with your heart. What happens before the procedure? Staying hydrated Follow instructions from your doctor about hydration, which may include: ??? Up to 3 hours before the procedure ? you may continue to drink clear liquids, such as: ? Water. ? Clear fruit juice. ? Black coffee. ? Plain tea. Eating and drinking Follow instructions from your doctor about eating and drinking, which may include: ??? 8 hours before the procedure ? stop eating heavy meals or foods such as meat, fried foods, or fatty foods. ??? 6 hours before the procedure ? stop eating light meals or foods, such as toast or cereal. ??? 6 hours before the procedure ? stop drinking milk or drinks that contain milk. ??? 3 hours before the procedure ? stop drinking clear liquids. General instructions ??? You will need to take out any dentures or retainers. ??? Plan to have someone take you home from the hospital or clinic. ??? If you will be going home right after the procedure, plan to have someone with you for 24 hours. ??? Ask your doctor about: ? Changing or stopping your normal medicines. This is important if you take diabetes medicines or blood thinners. ? Taking yyya-zoa-cxahdqn medicines, vitamins, herbs, and supplements. ? Taking medicines such as aspirin and ibuprofen. These medicines can thin your blood. Do not take these medicines unless your doctor tells you to take them. What happens during the procedure? To lower your risk of infection, your doctors will wash or clean their hands. ??? An IV will be put into one of your veins. ??? You will be given a medicine to help you relax (sedative). ??? A medicine may be sprayed or gargled. This numbs the back of your throat. ??? Your blood pressure, heart rate, and breathing will be watched. ??? You may be asked to lay on your left side. ??? A bite block will be placed in your mouth. This keeps you from biting the tube. ??? The tip of the FRANCISCO probe will be placed into the back of your mouth. ??? You will be asked to swallow. ??? Your doctor will take pictures of your heart. ??? The probe and bite block will be taken out. The procedure may vary among doctors and hospitals. What happens after the procedure? Your blood pressure, heart rate, breathing rate, and blood oxygen level will be watched until the medicines you were given have worn off. ??? When you first wake up, your throat may feel sore and numb. This will get better over time. You will not be allowed to eat or drink until the numbness has gone away. ??? Do not drive for 24 hours if you were given a medicine to help you relax. Summary ??? FRANCISCO is a test that uses sound waves to take pictures of your heart. ??? You will be given a medicine to help you relax. ??? Do not drive for 24 hours if you were given a medicine to help you relax. This information is not intended to replace advice given to you by your health care provider. Make sure you discuss any questions you have with your health care provider. Document Released: 05/23/2010 Document Revised: 04/14/2019 Document Reviewed: 10/27/2017 [employer] Patient Education ? 2020 [employer]. Electronically signed by Jazmin [facility] Conversion Pattern Stamper Cerner at 11/27/2022 8:39 AM CDT documented in this encounter Plan of Treatment Not on file documented as of this encounter Visit Diagnoses Not on filedocumented in this encounter Care Teams Ladle Patcher Relationship Specialty Start Date End Date Provider Not In System, [facility] PCP - General 06/30/22 08/10/22 Andreas Bradshaw MD [address] [place] [id number] PCP - General Family Medicine 08/11/22 [place] [address] [place] [address] [address] [place] [address] Aeronautical Engineering Professor Interventional Cardiology 08/11/22 [place] [address] [place] [address] [address] [place] [address] Aeronautical Engineering Professor Electrophysiology 08/11/22 documented as of this encounter
--- OUTSIDE RECORDS SUMMARY | 2025-01-15 08:50 | XMS_ITS | Clinical Summary ---
Author Organization [employer] Address [address] [place] [address] Care Team Providers Care Delivery Driver/Customer Service Name Role Phone Tami Ballard MD Unavailable [phone] Jeyson Agulia MD Unavailable Andreas Bradshaw MD Primary Care Provider [phone] Allergies No known active allergies Medications atorvastatin (LIPITOR) 40 MG tablet Take 40 mg by mouth daily. 06/21/2022 Active Climara Pro 0.045-0.015 mg/24 hr 1 patch once a week. 06/15/2022 Active levothyroxine (SYNTHROID, LEVOTHROID) 75 MCG tablet Take 75 mcg by mouth daily. 05/18/2022 Active vit C,G-Ui-ktkty-brad tein-zeaxan (PreserVision AREDS-2) 250-90-40-1 mg Cap Take by mouth. Active warfarin (COUMADIN, JANTOVEN) 7.5 MG tablet TAKE 1 TABLET BY MOUTH IN THE EVENING OR DIRECTED 90 tablet 11/13/2022 Active Active Problems Patient Care Coordination No te Formatting of this note migh t be different from the original. PCP Robbin Bradshaw unable to locate in search engine Problem Noted Date Diagnosed Date H/O sick sinus syndrome 06/30/2022 Shingles 06/30/2022 Macular degeneration of both eyes 06/23/2022 Atrial flutter 09/02/2021 Dizziness and giddiness 09/02/2021 Paroxysmal atrial fibrillati on with rapid ventricular response 09/02/2021 Presence of cardiac pacemaker 12/03/2020 Mitral valve stenosis 12/03/2020 shelter (current) use of anticoagulants 2019 Hyperlipidemia 07/24/2019 Thyroid disease 07/24/2019 Atrial fibrillation 03/19/2013 Family History Medical History Relation Name Comments Brain cancer Brother Lung cancer Father Relation Name Status Comments Brother Father Social History Tobacco Use Types Packs/Day Years Used Date Smoking Tobacco: Never Smokeless Tobacco: Never Alcohol Use Standard Drinks/Week Comments Not Currently 0 (1 standard drink = 0.6 oz pur e alcohol) Interpersonal Safety Answer Date Record ed Family or friends hurt you Not on file 08/27 Family or friends insult you Not on file Family or friends threaten you Not on file 0 08/27/2023 Family or friends scream or curse at you Not on file 08/27/2023 Housing Stability Answer Date Recorded Living situation today Not on file Living situation problems Not on file 2023 Food Insecurity Answer Date Recorded Food run out past 12 months Not on file 08/09 Food did not last past 12 months Not on file 08/27/2023 Employment Answer Date Recorded Help finding and keeping a job Not on file 0 08/27/2023 Family and Community Support Answer Dane e Recorded Help with Day to Day Activities Not on file 08/27/2023 Feeling Lonely or Isolated Not on file 08/27 Educational Attainment Answer Date Alverto rded Speak language other than Danish at home Not on file 08/27/2023 Want help with school or training Not on file 08/27/2023 Depression Answer Date Recorded PHQ-2 Risk Not on file 08/27/2023 Disabilities Answer Date Recorded Difficulty concentrating Not on file 024 Difficulty doing errands alone Not on file 0 08/27/2023 Substance Use Answer Date Recorded Used prescription meds for non-medical reasons N ot on file 08/27/2023 Used illegal drugs past 12 months Not on file 08/27/2023 Comments Unknown Sex and Gender Information Value Date Recorded Sex Assigned at Female 09/04/2022 2:24 PM TETRYL BOILING TUB OPERATOR Legal Sex Female 4:13 PM CDT Gender Identity Female 09/04/2022 2:24 PM TETRYL BOILING TUB OPERATOR Sexual Orientation Not on file Last Filed Vital Signs Vital Sign Reading Time Taken Comments Blood Pressure 125/85 09/22/2022 9:00 AM EST Pulse 65 09/22/2022 9:00 AM EST Temperature 36.4 C (97.5 F) 09/10/2022 8:20 AM EST Respiratory Rate 18 09/10/2022 2:00 PM EST Oxygen Saturation 98% 09/22/2022 9:00 AM EST Inhaled Oxygen Concentration - - Weight 71.2 kg (157 lb) 09/22/2022 9:00 AM EST Height 172.7 cm (5' 8 ) 09/22/2022 9:00 AM EST Body Mass Index 23.87 09/22/2022 9:00 AM EST Plan of Treatment Health Maintenance Due Date Last Done Comments CT Colonography 1954 Colonoscopy 1954 Colorectal Cancer Screening 1954 DXA SCAN 1954 FOBT/FIT 1954 Fit-DNA (Cologuard) 1954 Sigmoidoscopy 1954 Depression Screening (12+) 1966 Hepatitis C Screening 1972 DTAP/TDAP/TD VACCINES (1 - Tdap) 1973 Breast Cancer Screening 1994 Pneumococcal 50+ years (1 of 1 - PCV) 2004 Shingles Vaccine (Zoster) (1 of 2) 2004 Tobacco Cessation Counseling and Screening (12+) 09/22/2023 09/22/2022 COVID-19 VACCINE (4 - season) 2024 06/14/2021, 09/28/2020, 08/31/2020 Falls Risk Screening 08/09/2024 Influenza Vaccine (Season Ended) 2025 05/16/20 Respiratory Syncytial Virus (RSV) Adult or (1 - 1-dose 75+ series) 2029 Medical Devices Implanted Type Area Stile Ripsaw Operator Device Identifier Shelf Expiration Date Model / Serial / Lot Pacemakers-02/24 Implanted:02/24 (Quantity not on file) Pacemakers [employer] ADAPTA / [id number] / Insurance [employer] MEDICARE PPO Advance Directives For more information, please contact: [phone] * Full Code (Latest Code Status on File) Date Activated Date Inactivated Comments 09/07/2022 1:32 PM 09/10/2022 5:00 PM * Full Code Date Activated Date Inactivated Comments 06/30/2022 11:25 AM 07/18/2022 5:19 AM Care Teams Delivery Driver/Customer Service Relationship Specialty Start Date End Date Andreas Bradshaw MD [address] [place] [phone] PCP - General Family Medicine 08/11/22 Tami Ballard MD [address] [place] [address] [address] Property Claim Rep Interventional Cardiology 08/11/22 [place] [address] [place] [address] [address] [place] [address] Property Claim Rep Electrophysiology 08/11/22
--- OUTSIDE RECORDS SUMMARY | 2025-01-15 08:50 | XMS_ITS | Encounter Summary ---
Author Organization [employer] Address [address] [place] [address] Care Team Providers Care Pediatric Oncology Nurse Name Role Phone Provider Not In System, McT Primary Care Provide r Unavailable Tami Ballard MD Unavailable [phone] Jeyson Aguila MD Unavailable Andreas Bradshaw MD Primary Care Provider [phone] Encounter Details Date Type Department Care Team (Late st Contact Info) Description 04/11/2020 Transcribed Document [facility] [place] [address] ProviderAmisha MD [address] [place] [address] Social History Tobacco Use Types Packs/Day Years Used Date Smoking Tobacco: Never Assessed Comments Unknown Sex and Gender Information Value Date Recorded Sex Assigned at Female 09/04/2022 2:24 PM 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 Legal Sex Female 4:13 PM CDT Gender Identity Female 09/04/2022 2:24 PM 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 Sexual Orientation Not on file documented as of this encounter Miscellaneous Notes * Cerner Conversion Note - Historical ProviderMD - 04/11/2020 6:47 AM CDT Pre Procedure Adult Entered On: 04/11/2020 6:56 EDT Performed On: 04/11/2020 6:47 EDT by ROBYN BECKETT, SHAUNNA Height and Weight, Clinical Dosing Height Source : Stated Height Entry Format : Platter Height, Feet : 5 ft(Converted to: 152 cm, 60 Inch) Height, Inches : 8 Inch(Converted to: 0 ft 8 Inch, 20.32 cm) Clinical Height : 172.72 cm Weight Source : Standing scale Weight Entry Format : Platter Clinical Dosing Weight : 68.18 kg Weight, Pounds : 150 lb Body Surface Area (BSA) : 1.81 m2 Body Mass Index : 22.9 kg/m2 [place] Body Weight : 63 kg ROBYN BECKETT RN - 04/11/2020 6:47 EDT Health Histories Smoking Status : Never (less than 100 in lifetime; none in last 30 days) Smokeless Tobacco Status : Never ROBYN BECKETT RN - 04/11/2020 6:47 EDT Social History (As Of: 04/11/2020 06:56:34 EDT) Tobacco: Smoking Status Never smoker. (Last Updated: 04/01/2017 18:59:12 EDT by LEONARDO HERNANDEZ, RN) Alcohol: Alcohol Use History No. (Last Updated: 04/01/2017 18:59:16 EDT by LEONARDO HERNANDEZ, RN) Substance Abuse: Drug Use Hx: No. Use in Last 12 Months: No. (Last Updated: 04/01/2017 18:59:20 EDT by LEONARDO HERNANDEZ, RN) Infectious Disease History Has the patient ever been tested for COVID-19? : Yes, Patient stated results Negative Date of COVID-19 test known? : Yes Does patient have symptoms of COVID-19? : No COVID19 Screening : No Experiencing Infectious Disease Symptoms : No symptoms Physical contact outside [place] in the last 30 days : No Infectious Disease History : Chicken pox/Shingles, Other: SHINGLES Tuberculosis Symptoms : None ROBYN BECKETT RN - 04/11/2020 6:47 EDT COVID19 PreProcedure Screening Is this an Emergent or Add on Procedure? : No Has patient been isolated since the test : No Exposed to COVID19 symptoms since test? : No ROBYN BECKETT RN - 04/11/2020 6:47 EDT Anesthesia/Transfusion History Family History of Anesthesia Reaction : No prior transfusion(s) Transfusion History : Prior anesthesia without reaction Family History of Anesthesia Reaction : None ROBYN BECKETT RN - 04/11/2020 6:47 EDT Functional Assessment Living Situation : Home Patient Lives With : Spouse Persons Assisting Patient at Home : Spouse Current Daily Living Assistance : None Sensory Deficits : None Mobility Assistance Prior to Admission : Independent ENNIS Hx Falls Immediate/Within 3 Months : No Current Home Treatments : None ROBYN BECKETT RN - 04/11/2020 6:47 EDT [place] Suicide Severity Rating Scale (C-SSRS) CSSRS Past Month Wish to be : No CSSRS Past Month Suicidal Thoughts : No CSSRS Lifetime Suicide Behavior : No Suicide Severity Rating Score : 0 Suicide Severity Rating : No Additional Care Required at this time ROBYN BECKETT RN - 04/11/2020 6:47 EDT Psychosocial History Does Someone Depend on You for Care? : No Do You Have a History of the Following? : Patient denies history Currently in Unsafe Situation : No ROBYN BECKETT RN - 04/11/2020 6:47 EDT Advance Directive Patient has Advance Directive *Q : Yes, Advance Directive not with the patient Advance Directive Type : Medical durable power of criminal attorney (proxy) Medical Durable Power of Diplomatic Interpreter Name : No Copy Advance Directive Verified/on Chart : No ROBYN BECKETT RN - 04/11/2020 6:47 EDT Teaching/Learning Assessment Barriers To Learning : None evident Individuals Taught : Patient, Spouse Readiness to Learn : Cooperative Baseline Knowledge of Topic : Good Readiness to Learn : Demonstration, Explanation Learning Style Preferences Patient : None Learning Style Preferences Family : None ROBYN BECKETT RN - 04/11/2020 6:47 EDT Education Topics, Periop Preadmission Perioperative Education Grid Arrival Time/Place : Verbalizes understanding, Returns demonstration Central Lines : Verbalizes understanding, Returns demonstration CHG Preoperative Bathing/Cloths : Verbalizes understanding, Returns demonstration Falls : Verbalizes understanding, Returns demonstration Infection Control : Verbalizes understanding, Returns demonstration IV's : Verbalizes understanding, Returns demonstration NPO Status/Directions : Verbalizes understanding, Returns demonstration Pain Management : Verbalizes understanding, Returns demonstration Postoperative Care Preparations : Verbalizes understanding, Returns demonstration Preprocedure Preparations : Verbalizes understanding, Returns demonstration Preprocedure Tests/Labs : Verbalizes understanding, Returns demonstration Responsible Adult : Verbalizes understanding, Returns demonstration Take/Hold Medications Pre-Procedure : Verbalizes understanding, Returns demonstration ROBYN BECKETT RN - 04/11/2020 6:47 EDT General Info Arrived From : Home Mode of Arrival on Unit : Ambulatory Legal Guardian : Spouse Support Person/Patient Motorcycle Service Technician : Yes Support Person/Pt Rep Name : Galindo Shirley Support Person/Pt Rep Contact Information : Want Family/Rep/Phys Notified of Admit : No Emergency Contact #1 : see above Emergency Contact #1 Phone Number : n/a Emergency Contact #1 Relationship : n/a Emergency Contact #2 : n/a Emergency Contact #2 Phone Number : n/a Emergency Contact #2 Relationship : n/a Chief Complaint : FRANCISCO, L/C Information Obtained From : Patient Primary Language : Belizean Preferred Communication Mode : Verbal Communication Barrier : None Digital Business Analyst Needed : No ROBYN BECKETT RN - 04/11/2020 6:47 EDT Vital Measurements Temperature Source : Temporal artery scanning Temperature Mode : Fahrenheit Temperature, Fahrenheit : 97.9 Deg F Clinical Temperature, C : 36.6 Deg C Pulse Method : Non-Invasive BP Device Peripheral Pulse Rate : 70 bpm Respiratory Rate : 16 Breaths/Min Blood Pressure Location : Arm, right upper Blood Pressure Source : Non-Invasive BP Device Blood Pressure Position : Sitting Systolic Blood Pressure : 127 mmHg Diastolic Blood Pressure : 65 mmHg Oxygen Saturation : 99 % Oxygen Therapy Mode : Room air ROBYN BECKETT RN - 04/11/2020 6:47 EDT Sleep Apnea Risk Assmt Hx of Obstructive Sleep Apnea Diagnosis : No Snore Loudly : No Tired, Fatigued, or Sleepy During Day : No Observed Stopping Breathing During Sleep : No Have/Are Being Treated for Hypertension : No BMI Greater Than 35 kg/m2 : No Age over 50 Years Old : Yes Neck Circumference Greater Than 40 cm : No Gender Male : No STOP-BANG Sleep Apnea Risk Level Score : 1 ROBYN BECKETT RN - 04/11/2020 6:47 EDT Sebastien Scale Sebastien Sensory Perception : No impairment Sebastien Moisture : Moist Sebastien Activity : Walks frequently Sebastien Mobility : No limitation Sebastien Nutrition : Adequate Sebastien Friction and Shear : No apparent problem Sebastien Score : 20 ROBYN BECKETT RN - 04/11/2020 6:47 EDT Pain Assessment Pain Assessment : Initial assessment Pain Scale Used : 0-10 Scale ROBYN BECKETT RN - 04/11/2020 6:47 EDT Fall Risk Scales ABCs Fall Injury Risk Identification : Coagulation ABC Fall Injury Risk : Moderate to high injury risk Injury Moderate to High Risk Interventions : Transport methods appropriate to patient, Visual cues in place ENNIS Hx Falls Immediate/Within 3 Months : No Ennis Secondary Diagnosis : No ENNIS Use of Ambulatory Aid : None ENNIS IV Therapy or IV Access : Yes Ennis Gait/Transferring : Normal, bedrest, immobile Ennis Mental Status : Oriented to own ability Ennis Fall Risk Score : 20 ENNIS Fall Scale Risk Level : 0-24 Low Risk Mackay Fall Interventions : Adequate lighting, Assistive devices within reach, Bed in low position, Call device within reach, Fall prevention handout/education per facility policy, Frequent orientation to call device, Frequent orientation to surroundings, Hourly comfort/safety rounds, Non-slip footwear, Personal items within reach, Reinforced to call for assistance before getting out of bed, Room free of clutter/spills, Upper side-rails up, Wheels locked, Wires/Cords secured Fall Risk Scale Calc Temp : 0 ROBYN BECKETT RN - 04/11/2020 6:47 EDT Valuables and Belongings Valuables and Belongings : Clothing Clothing : Common streetwear Clothing Disposition : Bedside Belongings Disposition Comment : Valuables with spouse ROBYN BECKETT RN - 04/11/2020 6:47 EDT Pain Scale Intensity : 0 ROBYN BECKETT RN - 04/11/2020 6:47 EDT Image 4 - Images currently included in the form version of this document have not been included in the text rendition version of the form. documented in this encounter Plan of Treatment Not on file documented as of this encounter Visit Diagnoses Not on filedocumented in this encounter Care Teams Pediatric Oncology Nurse Relationship Specialty Start Date End Date Provider Not In System, [facility] PCP - General 06/30/22 08/10/22 Andreas Bradshaw MD [address] [place] [id number] PCP - General Family Medicine 08/11/22 Tami Ballard MD [address] [facility] [address] [place] [address] Media Relations Specialist Interventional Cardiology 08/11/22 Jeyson Aguila MD [address] [facility] [place] [address] Media Relations Specialist Electrophysiology 08/11/22 documented as of this encounter
--- OUTSIDE RECORDS SUMMARY | 2025-01-15 08:50 | XMS_ITS | Encounter Summary ---
Author Organization [employer] Address [address] [place] [address] Care Team Providers Care [facility] Nurse Name Role Phone Provider Not In System, McT Primary Care Provide r Marlen Lu MD Unavailable [phone] Jeyson Aguila MD Unavailable Heike Bradshaw MD Primary Care Provider [phone] Encounter Details Date Type Department Care Team (Late st Contact Info) Description 04/11/2020 Transcribed Document [facility] [place] [facility] [address] ProviderAmisha MD [address] [place] [address] Social History Tobacco Use Types Packs/Day Years Used Date Smoking Tobacco: Never Assessed Comments Unknown Sex and Gender Information Value Date Recorded Sex Assigned at Female 09/04/2022 2:24 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 [address] JASMIN HAILE :1955 Visit Time:04/11/2020 Your Visit Summary Your Care Team Admitting Physician - MARLEN BALLARD MD-CAR Attending Physician - MARLEN BALLARD MD-CAR Primary Care Physician - HEIKE BRADSHAW (REF)MD Referring Physician - MARLEN BALLARD MD-CAR Your Diagnosis Nonrheumatic mitral (valve) insufficiency, Nonrheumatic mitral (valve) insufficiency Discharge Vitals Heart Rate (Monitored) 68 Respiratory Rate 16 Blood Pressure 86/64 What to do next Instructions From Your Care Team No driving until after lunch tomorrow. Keep all appointments. For difficulty swallowing or bleeding from mouth-call 911. Follow-Up Appointments Follow Up with MARLEN BALLARD MD-CAR When 04/11/2020 11:56 AM EDT Comments Office to call with appoint/instructions Where: [address] [facility] [address] [place] [address]- Medications What How Much When Instructions Next Dose apixaban (Eliquis 5 mg oral tablet) 1 Tablet(s) Oral Two Times A Day atorvastatin (atorvastatin 40 mg oral tablet) 1 Tablet(s) Oral At Bedtime dofetilide (Tikosyn) 375 Milligram(s) Oral Two Times A Day estradiol-levonorgestrel (Climara Pro 0.045 mg-0.015 mg/ 24 hr transdermal film, extended release) 1 Patch(es) Topical Wednesday levothyroxine (levothyroxine 75 mcg (0.075 mg) oral tablet) 1 Tablet(s) Oral Every Day metoprolol (Metoprolol Succinate ER 25 mg oral tablet, extended release) 1 Tablet(s) Oral Every Day 12.5mg at night multivitamin 1 Tablet(s) Oral Every Day multivitamin with minerals (Ocuvite) 1 Tablet(s) Oral Every Day Take your medications faithfully. Do NOT skip medication. Do NOT stop taking medications without the direction of a physician. Carry a list of your medications with you at all times, and take this medication list with you to your first follow up visit. Report any side effects. Avoid herbal remedies unless discussed with your physician. As part of your treatment plan, your physician may have prescribed a limited course of a controlled substance. This medication may be given to help people with moderate or severe pain or for other medical conditions, but there are risks involved with treatment. Common side effects may include nausea, constipation, drowsiness, sweating, itching, dry mouth, and rash. More serious side effects may include cognitive and motor impairment, like problems with thinking, concentrating, alertness, and movement (e.g. slowed reflexes), and driving and operating heavy machinery can be dangerous. It is important for you to talk to your physician if you have these side effects or questions. These controlled substances can produce physical dependence and be habit-forming if taken for an extended period of time, which means that the body has gotten used to them and may experience withdrawal symptoms if they are abruptly stopped. Withdrawal symptoms can include runny nose, sweating, goose bumps, diarrhea, abdominal cramping, rapid heartbeat, difficulty sleeping, and nervousness. Please dispose of unused and medications per your retail pharmacy guidance. Allergies No Known Medication Allergies Immunizations This Visit No Immunizations Found Education Materials Moderate Conscious Sedation, Adult, Care After These [...] you are awake and alert. ??? Take [id number] and prescription medicines only as told by [...] 07/08/2018 Document Reviewed: 11/14/2016 Elsevier Patient Education ?? 2020 [employer]. Transesophageal Echocardiogram Transesophageal echocardiogram (FRANCISCO) is a [...] Up to 3 hours before the procedure ??? you may continue to drink clear liquids, such as: ? Water. ? Clear fruit juice. ? Black coffee. ? Plain tea. Eating and drinking Follow instructions from your doctor about eating and drinking, which may include: ??? 8 hours before the procedure ??? stop eating heavy meals or foods such as meat, fried foods, or fatty foods. ??? 6 hours before the procedure ??? stop eating light meals or foods, such as toast or cereal. ??? 6 hours before the procedure ??? stop drinking milk or drinks that contain milk. ??? 3 hours before the procedure ??? stop drinking clear liquids. General instructions ??? [...] diabetes medicines or blood thinners. ? Taking [id number] medicines, vitamins, herbs, and supplements. ? Taking [...] 05/23/2010 Document Revised: 04/14/2019 Document Reviewed: 10/27/2017 Elsevier Patient Education ?? 2020 [employer] Emergency Awareness and Preventative Care STROKE is an EMERGENCY Every Minute Counts Act FAST and Check for these signs: FACE Does the face look uneven? ARM Does one arm drift down? SPEECH Does their speech sound strange? TIME Call at any sign of stroke Stroke Risk Factors Atrial Fibrillation (irregular heartbeat) Diabetes Family history of stroke Heart Disease Heavy alcohol use High Blood Pressure High Cholesterol Physical inactivity and obesity Smoking Cigarette Smoking The facts are clear, cigarette smoking will shorten your life. Smoking can cause many illnesses along the way. As a healthcare provider, we recommend that you stop smoking. Assistance with quitting is available by contacting 9-355-DKBJ-NOW. This is a free resource providing counseling, support, and referral. Or you may contact your personal physician. [employer] Suicide Prevention Lifeline: The National Suicide Prevention Lifeline is a national network of local crisis centers that provides free and confidential emotional support to people in suicidal crisis or emotional distress 24 hours a day, 7 days a week. Don't Wait! Stop a Heart Attack Before it Starts What is a heart attack? A heart attack is damage or to a part of the heart from severely decreased or lack of blood flow to the heart. Over time, arteries can become narrow from the buildup of fat and cholesterol, which is called plaque. The plaque can rupture causing a blood clot to form. When the blood clot forms, the artery can become severely narrowed or completely blocked, causing a heart attack. Heart attack is the leading cause of in the [place]. 85% of muscle damage occurs within the first 2 hours. Delay in the recognition of heart attack symptoms increases the chances of . Know the early symptoms of a heart attack: Nausea Feeling of fullness in chest Jaw Pain Pain that travels down one or both arms Fatigue/being tired Anxiety Back Pain Chest pressure, squeezing, or discomfort Shortness of breath Sweating, or a cold sweat Feeling of impending doom There are unusual signs of a heart attack, too! Women, the elderly, and diabetics may present with atypical symptoms: Fainting/dizziness Weakness Confusion Risk Factors for a Heart Attack Some heart disease risk factors, such as age and family history, cannot be changed. Others, like smoking and lack of exercise, can be changed. Smoking High Cholesterol High Blood Pressure Family History Obesity Age Gender (Males are at higher risk) Lack of Exercise Diabetes Diet Stress Excessive Alcohol Intake If you or someone you know is experiencing the signs and symptoms of a heart attack, DON???T DELAY. Call immediately and seek help. If someone collapses, perform CPR! Do not attempt to drive if you are having symptoms of heart attack. Hands-Only CPR Why Hands-Only CPR? Hands-Only CPR has been shown to be as effective as conventional CPR for cardiac arrests that occur outside of a hospital. Survival depends on immediately receiving CPR from someone nearby. How do you perform Hands-Only CPR? There are two easy steps: Call 9-1-1 if you see a teen or adult collapse Push hard and fast in the center of the chest at a beat of 100 beats per minute. Save a life! 4 WAYS TO GET AHEAD OF SEPSIS SEPSIS is a MEDICAL EMERGENCY. Time matters! Infections put you and your family at risk for a life-threatening condition called sepsis. Sepsis is the body's extreme response to an infection. It is life-threatening, and without timely treatment, sepsis can rapidly lead to tissue damage, organ failure, and . Sepsis happens when an infection you already have-in your skin, lungs, urinary tract or somewhere else-triggers a chain reaction throughout your body. 1 PREVENT INFECTIONS Take good care of chronic conditions. Talk to your doctor about getting the recommended vaccines. 2 PRACTICE GOOD HYGIENE Wash your hands frequently. Keep cuts or open sores clean and covered until they are healed. 3 KNOW THE SYMPTOMS Confusion or disorientation Shortness of breath High heart rate Fever, shivering, or feeling very cold Extreme pain or discomfort Clammy or sweaty skin 4 ACT FAST Get medical care IMMEDIATELY if you suspect sepsis or if you have an infection that is not getting better or is getting worse. To learn more about sepsis and how to prevent infections, visit www.cdc.gov/sepsis. Test Results Laboratory or Other Results This Visit (last charted value for your 04/11/2020 visit) Hematology 04/11/2020 6:54 AM Platelet Count: 202 K/uL -- Normal range between ( 163 and 369 ) Patient Name:JASMIN HAILE I have received and understand this information and was given the opportunity to ask questions. Patient/Chalk Extruding Machine Operator Name: Patient/Chalk Extruding Machine Operator Signature: Relationship to Patient: Clinician/Hospital Chalk Extruding Machine Operator Signature: Date: Electronically signed by Interface, [facility] Conversion Director Of District Office Cerner at 11/27/2022 8:33 AM CDT documented in this encounter Plan of Treatment Not on file documented as of this encounter Visit Diagnoses Not on filedocumented in this encounter Care Teams [facility] Nurse Relationship Specialty Start Date End Date Provider Not In System, McT PCP - General 06/30/22 08/10/22 Heike Bradshaw MD [address] [place] [id number] PCP - General Family Medicine 08/11/22 Marlen Ballard MD [address] [place] [address] [address] [place] [address] Import Coordination And Production Head Interventional Cardiology 08/11/22 [place] [address] [place] [address] [address] [place] [address] Import Coordination And Production Head Electrophysiology 08/11/22 documented as of this encounter
--- OUTSIDE RECORDS SUMMARY | 2025-01-15 08:51 | XMS_ITS | Encounter Summary ---
Author Organization [employer] Address [address] [place] [address] Care Team Providers Care Linoleum Mechanic Name Role Phone Tami Ballard MD Unavailable [phone] Jeyson Aguila MD Unavailable Andreas Bradshaw MD Primary Care Provider [phone] Encounter Details Date Type Department Care Team (Latest Contact Info) Description 09/25/2024 Lab Requisition [facility] [address] [place] [address] Halle Barton MD [address] [facility] [address] [place] [address] Other endophthalmitis Social History Tobacco Use Types Packs/Day Years [...] Date Alverto rded Speak language other than Citizen Of [place] at home Not on file 08/27/2023 Want [...] Sex Assigned at Female 09/04/2022 2:24 PM HANDLING TECH Legal Sex Female 4:13 PM CDT Gender Identity Female 09/04/2022 2:24 PM HANDLING TECH Sexual Orientation Not on file documented as of this encounter Plan of Treatment Not on file documented as of this encounter Procedures Procedure Name Priority Date/Time Associated Diagnosis Comments ANAEROBIC CULTURE STAT 09/24/2024 10: 23 PM EST Other endophthalmitis BODY FLUID CULTURE + GRAM STAIN STAT 09/24/2024 10:23 PM EST Other endophthalmitis documented in this encounter Results * Anaerobic Culture (09/24/2024 10:23 PM EST) Result No anaerobic growth at 14 days. No Cutibacterium acnes (formerly Propionibacterium acnes) isolated 10/11/2024 7:20 AM EST [facility] Fine Needle Aspirate LEFT EYE STRUCTURE / Unknown 09/24/2024 10:23 PM EST 09/25/2024 1:30 AM EST us Halle Barton MD MICROBIOLOGY - GENERAL ORDERA BLES Final Result [facility] [address] [phone] * (ABNORMAL) Body Fluid Culture + Gram Stain (09/24/2024 10:23 PM EST) Result Staphylococcus epidermidis(A) 10/10/2024 7:48 AM EST [facility] Gram Stain Result No organisms seen 10/10/2024 7:48 AM EST [facility] Gram Stain Result No cells seen 10/10/2024 7:48 AM EST [facility] Fluid LEFT EYE STRUCTURE / Unknown 09/24/2024 10:23 PM EST 09/25/2024 1:30 AM EST Narrative Organism Antibiotic Method Susceptibility Staphylococcus epidermidis Amoxicillin + Clavulanate <=4/2: Susceptible Staphylococcus epidermidis Ampicillin + Sulbactam <=8/4: Susceptible Staphylococcus epidermidis Azithromycin >4: Resistant Staphylococcus epidermidis Cefazolin <=8: Susceptible Staphylococcus epidermidis Cefepime <=4: Susceptible Staphylococcus epidermidis Cefotaxime <=8: Susceptible Staphylococcus epidermidis Ceftriaxone <=4: Susceptible Staphylococcus epidermidis Ciprofloxacin <=1: Susceptible Staphylococcus epidermidis Clindamycin >4: Resistant Staphylococcus epidermidis Daptomycin <=0.5: Susceptible Staphylococcus epidermidis Erythromycin >4: Resistant Staphylococcus epidermidis Gentamicin <=4: Susceptible Staphylococcus epidermidis Imipenem <=4: Susceptible Staphylococcus epidermidis Levofloxacin <=1: Susceptible Staphylococcus epidermidis Meropenem <=2: Susceptible Staphylococcus epidermidis Oxacillin <=0.25: Susceptible Staphylococcus epidermidis Piperacillin + Tazobactam <=8: Susceptible Staphylococcus epidermidis Rifampin <=1: Susceptible Staphylococcus epidermidis Tetracycline <=4: Susceptible Staphylococcus epidermidis Trimethoprim + Sulfamethoxazole >2/38: Resistant Staphylococcus epidermidis Vancomycin 1: Susceptible us Halle Barton MD MICROBIOLOGY - GENERAL ORDERA BLES Final Result [facility] [address] [phone] documented in this encounter Visit Diagnoses Diagnosis Other endophthalmitis documented in this encounter Care Teams Linoleum Mechanic Relationship Specialty Start Date End Date Andreas Bradshaw MD [address] [place] [address] PCP - General Family Medicine 08/11/22 Tami Ballard MD [address] [place] [address] [address] Box Toe Buffer Interventional Cardiology 08/11/22 Jeyson Aguila MD [address] [place] [address] [address] Box Toe Buffer Electrophysiology 08/11/22 documented as of this encounter
--- OUTSIDE RECORDS SUMMARY | 2025-01-15 08:51 | XMS_ITS | Patient Health Record ---
[facility] Address [address] [facility] [address] [place] [id number] Care Team Providers Care Dry Cleaner Presser Name Role Phone Kelsi Bradshaw Primary Care Provider IAN JD Unavailable Unavailable FranciscoJennifer negrete Unavailable [phone] Allergies No Known Allergies Results Component Value [...] - 38 plat 167 100 - 400 EKG Reviewed date:02/14/2024 10:57:21 PM Interpretation:Abnormal Performing Lab: Notes/Report: Abnormal Reason For Referral No Information Medications Medication SIG (Take, Route, Frequency, Duration) Notes Start Date End Date Status FLUoxetine HCl 20 MG 1 capsule Orally On ce a day Active Levothyroxine Sodium 75 MCG 1 tablet in the morning on an empty stomach Orally Once a day Active Flonase Allergy Relief 50 MCG/ACT 1 spray(s) intranasally once a day for 60 Active Metoprolol Tartrate 100 MG 1 tablet with food Orally Twice a day Active Estradiol-Levonorgestrel 0.045-0.015 MG/DAY 1 PATCH applied topically once a week for 4 week(s) Active Ocuvite Extra - 1 tab(s) orally once a day Active Eliquis 5 MG 1 tab(s) Orally Two times a day Active Aspirin 81 81 MG 1 tablet Orally Once a day for 30 day(s) Active dilTIAZem HCl 100 MG as directed Intravenous Active Atorvastatin Calcium 40 MG 1 tablet orally daily for 90 days Active Dofetilide 250 MCG 1 capsule Orally Twi ce a day Not-Taking Immunizations Vaccine Route Administration Date Status Comme nts COVID 19 Moderna Unknown 08/31/2020 Administered COVID 19 Moderna Unknown 09/28/2020 Administered COVID 19 Moderna Unknown 06/14/2021 Administered Fluzone High Dose (65yr and older) IM Intramuscular 05/15/2019 Administered Fluzone High Dose (65yr and older) IM Intramuscular 05/16/2020 Administered Fluzone High Dose (65yr and older) IM Intramuscular 06/01/2023 Administered Fluzone PF Quad (6-35 months) Unknown 05/27/2022 Administered Fluzone Quad (6months&older) IM Intramuscular 05/18/2018 Administered Hepatitis A (adult) IM Intramuscular 02/13/2019 Administer ed Hepatitis B (20 and more) Unknown 03/09/2000 Administer ed Hepatitis B (20 and more) Unknown 04/20/2000 Administer ed Hepatitis B (20 and more) Unknown 10/29/2000 Administer ed xFluzone (6mos and older)-trivalent IM Intramuscular 06/12/2013 Administered Problems Problem Type SNOMED Code ICD Code Onset Dates Problem Status W/U Status Risk Notes Problem Anxiety disorder (537409885) Anxiety disorder (F41.9) Active confirmed Problem 79862148 Paresthesia (R20.2) Active confirmed Problem 588924666 Paroxysmal atria l fibrillation (I48.0) Active confirmed Problem 196124943 Chronic atrial fibrillation (I48.2) Active confirmed resolved Problem Long-term current use of anticoagulant (615465552) [facility] (current) use of anticoagulants (Z79.01) Active confirmed Problem 241092696 Acquired hypothyroidism (E03.9) Active confirmed Problem 967592369 Dyslipidemia (E78.5) Active confirmed Problem 731691653 Presence of permanent cardiac pacemaker (Z95.0) Active confirmed Problem 112301469 Chronic atrial fibrillation (I48.20) Active confirmed Vital Signs Heart Rate 81 /min 01/11/2025 Blood pressure diastolic 60 mm Hg 01/11/2025 Height 66.50 in 01/11/2025 Blood pressure systolic 100 mm Hg 01/11/2025 Weight 163.8 lbs 01/11/2025 BMI 26.04 kg/m2 01/11/2025 Encounters Encounter Location Date Provider Diagnosis [facility] [address] [facility] [address] [place], [place] [id number] 02/03/2024 R Robbin Bradshaw Paroxysmal atrial fibrillation I48.0 [facility] [address] [facility] [address] [place], [place] [id number] 08/31/2024 R Robbin Bradshaw Persistent cough R05 .3 [facility] [address] [facility] [address] [place], [place] [id number] 11/09/2024 R Robbin Bradshaw Anxiety disorder F41 .9 and Chronic cough R05.3 [facility] [address] [place], [place] [phone] 01/04/2025 Jennifer Crowdy Chronic cough R05.3 ; Bilateral impacted cerumen H61.23 ; Leg swelling M79.89 ; Paroxysmal atrial fibrillation I48.0 ; Acquired hypothyroidism E03.9 ; Dyslipidemia E78.5 and BMI 26.0-26.9,adult Z68.26 [facility] [address] [facility] [address] [place], [place] [id number] 01/11/2025 R Robbin Bradshaw Bilateral impacted cerumen H61.23 [facility] [address] [place], [place] [id number] 09/25/2024 R Robbin Hat [facility] [address] [place], [place] [id number] 01/05/2025 R Robbin Bradshaw Assessments Encounter Date Diagnosis (ICD Code) Assessment Notes Treatment Notes Treatment Clinical Notes Section Notes 02/03/2024 Paroxysmal atrial fibrillation (ICD-10 - I48.0) Will obtain EKG and fax to Dr. Jamison 08/31/2024 Persistent cough (ICD-10 - R05.3) 11/09/2024 Anxiety disorder (ICD-10 - F41.9) 11/09/2024 Chronic cough (ICD-10 - R05.3) 01/04/2025 Bilateral impacted cerumen (ICD-10 - H61.23) Will soak and f/u for repeat ear irrigation. 01/04/2025 Chronic cough (ICD-10 - R05.3) Has cough medication at home. 01/11/2025 Bilateral impacted cerumen (ICD-10 - H61.23) Ears are irrigated free of wax today. 01/04/2025 Leg swelling (ICD-10 - M79.89) This is likely due to her cardizem as this did not happen until she started taking it. She will contact her yeast fermentation attendant. 01/04/2025 Paroxysmal atrial fibrillation (ICD-10 - I48.0) 01/04/2025 Acquired hypothyroidism (ICD-10 - E03.9) 01/04/2025 Dyslipidemia (ICD-10 - E78.5) 01/04/2025 BMI 26.0-26.9,adult (ICD-10 - Z68.26) Plan Of Treatment Pending Test Test Name Order Date Bone density 01/08/2025 H-VITAMIN D 08/24/2023 Insurance Providers Payer Name Payer Address Payer Phone Subscriber Number Group Number Insured Name Patient Relationship to Insured Coverage Start Date Coverage End Date [employer] (MEDICAR E) [address] [address] [place] [address] [id number] Joslyn Shirley Self - patient is the insured Medications Administered Medication Instructions Date of Administration Dosage Notes Depo- Medrol 40 mg/ml 01/13/2022 1.5 mL Depo- Medrol 40 mg/ml 06/09/2022 1.5 mL Medical (General) History Medical History History ICD Code Frozen shoulders Lone Atrial Fib - 03/2013/ Dr. Ballard Sick Sinus syndrome Rheumatic jheart disease mild CHF mild mitral valve stenosis bradycardia-tachycardia syndrome EAR NOSE THROAT PHYSICIAN care per Dr. Yoon Surgical History Surgery Date(Month/Year) tubal 1982 permanent pacemaker placed 02/24/17 Heart Cath 10/27/22 MV replacement (MAZE procedu re),TV repair, and left atrial appendage ligation/ [facility] 01/11/2023 Hysteroscopy 03/2023 Cataract Surgery Bilateral 06/2023 Hospitalization History Reason Date(Month/Year) [facility] - A-Fib 01/2024 [facility]-Afib, Bradycardia-tac hycardia syndrome, mild CHF, Mild mitral valve stenosis 02/24/17 Clinic-Bronchitis, ear infection, sin usitis 06/23 [facility] ER-UTI 07/04/13 [facility] ER-heart out of rhythmn 04/03/13 [facility]-A-fib 03/19/13
--- OUTSIDE RECORDS SUMMARY | 2025-01-15 08:51 | XMS_ITS | Encounter Summary ---
Author Organization [employer] Address [address] [place] [address] Care Team Providers Care Yarn Examiner Name Role Phone Provider Not In System, McT Primary Care Provide r Unavailable Tami Ballard MD Unavailable [phone] Jeyson Aguila MD Unavailable Andreas Bradshaw MD Primary Care Provider [phone] Encounter Details Date Type Department Care Team (Late st Contact Info) Description 04/11/2020 Transcribed Document [facility] Family Medicine [facility] [place] [address] ProviderAmisha MD [address] [place] [address] Social History Tobacco Use Types Packs/Day Years Used Date Smoking Tobacco: Never Assessed Comments Unknown Sex and Gender Information Value Date Recorded Sex Assigned at Female 09/04/2022 2:24 PM KITCHEN SUPERVISOR Legal Sex Female 4:13 PM CDT Gender Identity Female 09/04/2022 2:24 PM KITCHEN SUPERVISOR Sexual Orientation Not on file documented as of this encounter Miscellaneous Notes * Cerner Conversion Note - Amisha ProviderMD - 04/11/2020 12:53 PM CDT Nursing Discharge Summary Entered On: 04/11/2020 12:54 EDT Performed On: 04/11/2020 12:53 EDT by ROBYN BECKETT, synchronous motor assembler Documentation Discharge Date/Time : 04/11/2020 13:02 EDT ROBYN BECKETT, SHAUNNA - 04/11/2020 13:01 EDT Patient Disposition, General : Discharge Discharge To : Home with ambulatory/outpatient follow-up Name of Receiving Facility/Provider : Dr. Ballard will call you tomorrow. Mode Of Departure, General Discharge : Ambulatory Accompanied By, Discharge : Spouse IV Discontinued : Yes Personal Belongings With Patient : Yes Pt's Own Supply of Medications Returned : No patient supply of medications to return Prescriptions Given to Patient : No Medications Given to Patient : No Discharge Instructions Reviewed With, Opportunity For Questions Given : Patient, Spouse Patient Education Completed : Yes Teaching Method : Demonstration, Explanation Teaching Evaluation : Returns demonstration, Verbalizes understanding Worker's Compensation Paperwork Completed : No Discharge, Comment : Keep all appointments. ROBYN BECKETT RN - 04/11/2020 12:53 EDT Electronically signed by [facility] Conversion Butter Maker Cerner at 11/27/2022 8:32 AM CDT documented in this encounter Plan of Treatment Not on file documented as of this encounter Visit Diagnoses Not on filedocumented in this encounter Care Teams Yarn Examiner Relationship Specialty Start Date End Date Provider Not In System, [facility] PCP - General 06/30/22 08/10/22 Andreas Bradshaw MD [address] [place] [address] PCP - General Family Medicine 08/11/22 [place] [address] [place] [address] [address] Claim Processing Specialist Interventional Cardiology 08/11/22 [place] [address] [place] [address] [address] [place] [address] Claim Processing Specialist Electrophysiology 08/11/22 documented as of this encounter
--- OUTSIDE RECORDS SUMMARY | 2025-01-15 08:51 | XMS_ITS | Encounter Summary ---
Author Organization [employer] Address [address] [place] [address] Care Team Providers Care Biotechnician Name Role Phone Provider Not In System, McT Primary Care Provide r Tami Lu MD Unavailable [phone] Jeyson Aguila MD Unavailable Andreas Bradshaw MD Primary Care Provider [phone] Encounter Details Date Type Department Care Team (Late st Contact Info) Description 04/11/2020 Transcribed Document [facility] Family Medicine [address] [place] [address] ProviderAmisha MD [address] [place] [address] Social History Tobacco Use Types Packs/Day Years Used Date Smoking Tobacco: Never Assessed Comments Unknown Sex and Gender Information Value Date Recorded Sex Assigned at Female 09/04/2022 2:24 PM IT DESKTOP SUPPORT SPECIALIST Legal Sex Female 4:13 PM CDT Gender Identity Female 09/04/2022 2:24 PM IT DESKTOP SUPPORT SPECIALIST Sexual Orientation Not on file documented as of this encounter Miscellaneous Notes * Cerner Conversion Note - Historical ProviderMD - 04/11/2020 9:15 AM CDT Event Note Entered On: 04/11/2020 9:16 EDT Performed On: 04/11/2020 9:15 EDT by ROBYN BECKETT RN Event Note Event Date/Time : 04/11/2020 9:15 EDT Description of Event : Patient and family updated on delay. Dr. Falluji in on a lengthy case at this time-return understanding. ROBYN BECKETT RN - 04/11/2020 9:15 EDT Electronically signed by [facility], [facility] Conversion Human Services Supervisor Cerner at 11/27/2022 8:31 AM CDT documented in this encounter Plan of Treatment Not on file documented as of this encounter Visit Diagnoses Not on filedocumented in this encounter Care Teams Biotechnician Relationship Specialty Start Date End Date Provider Not In System, [facility] PCP - General 06/30/22 08/10/22 Andreas Bradshaw MD [address] [place] [address] PCP - General Family Medicine 08/11/22 Tami Ballard MD [address] [place] [address] [place] [id number] Cattle Tester Interventional Cardiology 08/11/22 Jeyson Aguila MD [address] [place] [address] [address] Cattle Tester Electrophysiology 08/11/22 documented as of this encounter
--- OUTSIDE RECORDS SUMMARY | 2025-01-15 08:51 | XMS_ITS | Clinical Summary ---
Author Organization Healthcare Address [address] [facility] [address] Care Team Providers Care Director Of Operations Name Role Phone Unavailable Primary Care Provider Unavailabl e Social History Tobacco Use Types Packs/Day Years Used Date Smoking Tobacco: Never Assessed Comments Unknown Sex and Gender Information Value Date Recorded Sex Assigned at Not on file Legal Sex Female 8:51 PM EDT Gender Identity Not on file Sexual Orientation Not on file Plan of Treatment Health Maintenance Due Date Last Done Comments [facility]-Bone Density Scan 1954 [facility]-Depression Screening 1954 [facility]-/Child/Adol SDOH Screenings 1954 [facility]- SDOH Screenings 1972 [facility]-Adult SDOH Screenings 1972 [facility]-DTaP,Tdap,and Td Vaccine s (1 - Tdap) 1973 CT Colonography 1999 Colonoscopy 1999 FIT-DNA 1999 FIT 1999 FOBT 1999 Sigmoidoscopy 1999 [facility]-Colorectal Cancer Screening 1999 [facility]-Pneumococcal Vaccine: 50 + Years (1 of 1 - PCV) 2004 [facility]-Zoster Vaccines (1 of 2) 2004 HND-HTEDG-51 Vaccine (1 - 20 24-25 season) 2024 [facility]-Influenza Vaccine (Seaso n Ended) 2025 [facility]-RSV Vaccine: 60+ Years o r (1 - 1-dose 75+ series) 2029 HPV Vaccines Aged Out No longer eligi ble based on patient's age to complete this topic [facility]-HIB Vaccines Aged Out No longer e ligible based on patient's age to complete this topic [facility]-Hepatitis A Vaccines Aged Out No longer eligible based on patient's age to complete this topic [facility]-IPV Vaccines Aged Out No longer e ligible based on patient's age to complete this topic [facility]-Rotavirus Vaccines Aged Out No lo nger eligible based on patient's age to complete this topic
--- OUTSIDE RECORDS SUMMARY | 2025-01-15 08:51 | XMS_ITS | Referral Summary ---
Author Organization [employer] Address [address] [place] [address] Care Team Providers Care Regional Transfer Liaison Name Role Phone Tami Ballard MD Unavailable [phone] Jeyson Aguila MD Unavailable Andreas Bradshaw MD Primary Care Provider [phone] Allergies No known active allergies Medications atorvastatin (LIPITOR) 40 MG tablet Take 40 mg by mouth daily. 06/21/2022 Active Climara Pro 0.045-0.015 mg/24 hr 1 patch once a week. 06/15/2022 Active levothyroxine (SYNTHROID, LEVOTHROID) 75 MCG tablet Take 75 mcg by mouth daily. 05/18/2022 Active vit C,W-Mh-bspvi-brad tein-zeaxan (PreserVision AREDS-2) 250-90-40-1 mg Cap Take [...] cardiac pacemaker 12/03/2020 Mitral valve stenosis 12/03/2020 jail (current) use of anticoagulants 2019 Hyperlipidemia 07/24/2019 Thyroid disease 07/24/2019 Atrial fibrillation 03/19/2013 Social History Tobacco Use Types Packs/Day Years [...] Date Alverto rded Speak language other than Azerbaijani at home Not on file 08/27/2023 Want [...] Sex Assigned at Female 09/04/2022 2:24 PM TOUR DRIVER Legal Sex Female 4:13 PM CDT Gender Identity Female 09/04/2022 2:24 PM TOUR DRIVER Sexual Orientation Not on file Last Filed [...] 09/22/2022 9:00 AM EST Plan of Treatment Not on file Medical Devices Implanted Type Area Wax Room Supervisor Device Identifier Shelf Expiration Date Model / Serial / Lot Pacemakers-02/24 Implanted:02/24 (Quantity not on file) Pacemakers [employer] ADAPTA / [id number] / Insurance [place] [id number] [employer] MEDICARE PPO Advance Directives For more information, please contact: [phone] * Full Code (Latest Code Status on File) Date Activated Date Inactivated Comments 09/07/2022 1:32 PM 09/10/2022 5:00 PM * Full Code Date Activated Date Inactivated Comments 06/30/2022 11:25 AM 07/18/2022 5:19 AM Care Teams Regional Transfer Liaison Relationship Specialty Start Date End Date Andreas Bradshaw MD [address] [place] [address] PCP - General Family Medicine 08/11/22 [place] [address] [place] [address] [address] [place], [place] [id number] Software Project Manager Interventional Cardiology 08/11/22 Jeyson Aguila MD [address] [place] [address] [address] [place], [place] [id number] Software Project Manager Electrophysiology 08/11/22
--- OUTSIDE RECORDS SUMMARY | 2025-01-15 08:52 | XMS_ITS | Encounter Summary ---
Author Organization [employer] Address [address] [place] [address] Care Team Providers Care Green Plumber Name Role Phone Provider Not In System, McT Primary Care Provide r Unavailable Tami Ballard MD Unavailable [phone] Jeyson Aguila MD Unavailable Andreas Bradshaw MD Primary Care Provider [phone] Reason for Visit * Reason Comments Medication Refill Encounter Details Date Type Department Care Team (Late st Contact Info) Description 08/09/2022 Refill [facility] Cardiology [address] [facility] [address] [place] [address] Taim Ballard MD [address] [facility] [address] [place], [place] [phone] Paroxysmal atrial fibrillation with rapid ventricular response (HCC) (Primary Dx) Social History Tobacco Use Types Packs/Day Years Used Date Smoking Tobacco: Never Smokeless Tobacco: Never Alcohol Use Standard Drinks/Week Comments Not Currently 0 (1 standard drink = 0.6 oz pur e alcohol) Comments Unknown Sex and Gender Information Value Date Recorded Sex Assigned at Female 09/04/2022 2:24 PM RETAIL BUSINESS DEVELOPMENT MANAGER Legal Sex Female 4:13 PM CDT Gender Identity Female 09/04/2022 2:24 PM RETAIL BUSINESS DEVELOPMENT MANAGER Sexual Orientation Not on file documented as of this encounter Plan of Treatment Not on file documented as of this encounter Visit Diagnoses Diagnosis Paroxysmal atrial fibrillation with rapid ventricular response (HCC)- Primary documented in this encounter Care Teams Green Plumber Relationship Specialty Start Date End Date Provider Not In System, McT PCP - General 06/30/22 08/10/22 Andreas Bradshaw MD [address] [place] [address] PCP - General Family Medicine 08/11/22 Tami Ballard MD [address] [facility] [address] [place], [place] [id number] Dish Technician Interventional Cardiology 08/11/22 Jeyson Aguila MD [address] [facility] [address] [place], [place] [id number] Dish Technician Electrophysiology 08/11/22 documented as of this encounter
--- NOTE | 2025-01-15 08:53 | XR_ITS ---
FINAL REPORT TECHNIQUE: Bone densitometry calculations of the lumbar spine and lateral hips were obtained. CLINICAL HISTORY: SCREENING COMPARISON: None FINDINGS: Using L1-4, the bone mineral density of the spine is 0.898 g/cm2, corresponding to T-score of -1.4. Using the left hip, the bone mineral density of the femoral neck is 0.789 g/cm2, corresponding to a T-score of -1.3. Using the right hip, the bone mineral density of the femoral neck is 0.727 g/cm?, corresponding to a T-score of -1.1. NOTE: T-score: Standard deviation compared with peak bone mass of young adult mean. *Following the recommendations of the International Society of Bone densitometry, classification of hip BMD is based on the lower of two T-scores; total hip or femoral neck. IMPRESSION: Diminished bone mineral density of the lumbar spine and bilateral hips consistent with osteopenia. Reviewed, Interpreted and Dictated by Ryan Duran MD Transcribed by Daria Toure Authenticated and [facility]
== END 2025-01-15 23:59 | disposition home or self-care (01) ==
LOC: RAD 08:47
PROVIDERS: PCP Family Medicine; Visit Provider Family Medicine
DX: M85.852 Other specified disorders of bone density and structure, left thigh (principal); M85.851 Other specified disorders of bone density and structure, right thigh; M85.88 Other specified disorders of bone density and structure, other site; Z13.820 Encounter for screening for osteoporosis
CPT/HCPCS: 77080